=== PATIENT | female | born 1955 | race Caucasian/White ===

== ENCOUNTER 2020-05-06 14:39 | Emergency (ER) | payer BC, SELFPAY ==
--- NOTE | ~2020-05-06 | XR_ITS ---
EXAMINATION: XR ribs LT 2V w CXR 2V DATE: 05/06/2020 15:39 INDICATION: Lower posterior left rib pain post fall TECHNIQUE: PA and lateral views of the chest and 3 views of the left ribs were obtained. COMPARISON: Chest radiograph dated 06/14/2019 FINDINGS: No rib fractures identified. No pneumothorax. No focal infiltrates, pleural effusion or pulmonary preet ma. Calcified right hilar lymph nodes as well as multiple small splenic calcifications consistent wit h old granulomatous disease. Cardiomediastinal silhouette is normal. Peripheral IV at the left antecu bital fossa. Mild thoracic spondylosis. IMPRESSION: 1. No rib fracture or acute cardiopulmonary disease. Reviewed, dictated and finalized at location A.
--- NOTE | ~2020-05-06 | XR_ITS ---
EXAMINATION: XR hip LT 2V w AP pelvis DATE: 05/06/2020 15:38 INDICATION: Left hip pain post fall TECHNIQUE: Anteroposterior view of the pelvis and anteroposterior and frog-leg lateral views of the l eft hip were obtained. COMPARISON: None. FINDINGS: Alignment is normal. No fracture. Mild osteoarthritis at the bilateral hip and sacroiliac joints. Mod erate lumbar spondylosis. Soft tissues are unremarkable. IMPRESSION: 1. No acute osseous abnormality. Reviewed, dictated and finalized at location A.
[2020-05-06 14:43] VITALS: BP 166/79; PULSE 67; RESP 14; TEMP 37.1; O2SAT 99
[2020-05-06] MEDS: MORPHINE SULFATE 4 MG/ML INJ IV PUSH (14:56)
--- NOTE | 2020-05-06 17:26 | ED.FALL ---
HPI - Fall General Chief Complaint: Fall Stated Complaint: fall/left hip pain Time Seen by Provider: 05/06/20 14:40 History of Present Illness HPI Narrative: Patient is a 64-year-old female who presents ER with left side pain. Patient tripped over some flowerpots landed on a larger one. She not strike her head or lose consciousness. She has pain with twisting and walking. Concerned she may have injured her hip. No numbness or tingling in her lower extremities. No midline back pain. Related Data Home Medications Medication Instructions Recorded Confirmed diclofenac sodium 75 mg 75 mg PO BID 10/19/19 11/18/19 tablet,delayed release levothyroxine 125 mcg tablet 125 mcg PO DAILY 10/19/19 11/18/19 omeprazole 40 mg capsule,delayed 40 mg PO DAILY 10/19/19 11/18/19 release pravastatin 40 mg tablet 40 mg .ROUTE DAILY tablet 10/19/19 11/18/19 icosapent ethyl 1 gram capsule 2 gm PO BID cap 10/25/19 11/18/19 Allergies Allergy/AdvReac Type Severity Reaction Status Date / Time aloe Allergy Severe Dyspnea / Verified 11/25/19 08:59 SOB Review of Systems Review of Systems: All systems reviewed & are unremarkable except as noted in HPI and below Musculoskeletal: Musculoskeletal: Denies back pain, Reports myalgias and Denies arthralgias Neurologic: Denies syncope, Denies focal weakness and Denies numbness PMFSH Past Medical History Medical History (Updated 05/06/20 @ 17:38 by Chance Quintanilla MD) Arthritis GERD (gastroesophageal reflux disease) Hyperlipidemia with target LDL less than 130 Hypothyroidism, unspecified Jaw fracture 1979 Meningioma ALEAH (obstructive sleep apnea) Surgical History Surgical History Hx of tonsillectomy 1973 Social History Social History Smoking status: Never smoker Alcohol intake: current Gender identity (if verbalized by the patient): Female Exam Narrative: Exam Narrative: GENERAL: Uncomfortable-appearing, well-nourished, and in no acute distress. HEAD: Normocephalic, atraumatic. CHEST: Clear to auscultation. No respiratory distress. Her palpation left posterior chest wall over the ribs inferior to the scapula. No evidence of trauma. HEART: Regular rate and rhythm. Normal peripheral pulses. ABDOMEN: Soft, nontender, nondistended, normal active bowel sounds. Back: No midline tenderness of the thoracic or lumbar spine. No paraspinal muscular tenderness. EXTREMITIES: Normal range of motion without pain of the hips bilaterally. Normal function of the upper extremities. Ambulates with a guarded gait. SKIN: Warm, dry, no rash. NEURO: Alert and oriented x3. Course Course Emergency Course: Patient informed of results. Ambulatory in the ER. Discharged with supportive therapy. Vital Signs Vital signs: Vital Signs Temperature 98.7 F 05/06/20 14:43 Pulse Rate 67 05/06/20 14:43 Respiratory Rate 14 05/06/20 14:43 Blood Pressure 166/79 H 05/06/20 14:43 Pulse Oximetry 99 05/06/20 14:43 Temperature 98.7 F 05/06/20 14:43 Pulse Rate 67 05/06/20 14:43 Respiratory Rate 14 05/06/20 14:43 Blood Pressure 166/79 H 05/06/20 14:43 Pulse Oximetry 99 05/06/20 14:43 MDM - Fall Imaging Data Radiologist's impression: ITS Impressions Ribs w/Chest X-Ray 05/06/20 15:41 IMPRESSION: 1. No rib fracture or acute cardiopulmonary disease. Hip/Pelvis X-Ray 05/06/20 15:53 IMPRESSION: 1. No acute osseous abnormality. Discharge Plan Discharge Clinical Impression: Acute chest wall pain, Back pain Patient Disposition: Home, Self-Care Condition: Stable Instructions: Chest Pain (ED), Back Pain (ED) Additional Instructions: Return to the ER if you suffer recurrent injury, you have chest pain or shortness of breath, you cannot keep down food or water, you have additional concerns. Prescriptions: New
[2020-05-06 17:53] VITALS: BP 155/70; PULSE 70; RESP 16; O2SAT 99
== END 2020-05-06 17:54 | disposition home or self-care (01) ==
PROVIDERS: Emergency Provider Emergency Medicine; PCP Internal Medicine
DX: R07.89 Other chest pain (principal); M54.9 Dorsalgia, unspecified; E78.5 Hyperlipidemia, unspecified; K21.9 Gastro-esophageal reflux disease without esophagitis; E03.9 Hypothyroidism, unspecified; G47.33 Obstructive sleep apnea (adult) (pediatric); W18.09XA Striking against other object with subsequent fall, initial encounter; M19.90 Unspecified osteoarthritis, unspecified site
CPT/HCPCS: 71046; 71100; 73502; 96374; 99284; J2270

== ENCOUNTER → 2020-10-31 10:13 | Outpatient (CLI) | payer BC, SELFPAY ==
--- NOTE | ~2020-10-31 | MR_ITS ---
EXAMINATION: MR brain/brain stem wo/w con DATE: 10/31/2020 11:22 INDICATION: Meningioma. TECHNIQUE: Magnetic resonance imaging (MRI) of the brain and brainstem was performed without and with 18 mL MultiHance intravenous contrast. Sequences included sagittal and axial T1-weighted FSE, axial diffusion-weighted FS EPI, axial T2*-weighted GRE, axial T2-weighted FLAIR Propeller, and axial T2-we ighted Propeller. Postcontrast sequences included axial, sagittal, and coronal T1-weighted FSE. Appar ent diffusion coefficient (ADC) maps were created. COMPARISON: Brain MRI 08/22/2014 FINDINGS: There is a 1.8 x 1.1 x 1.8 cm enhancing extra-axial mass with dural tails anterior to left frontal lobe, consistent with a meningioma. There is no acute ischemic infarct or intracranial hemorr shauna. The ventricles are normal in size. There is mild mucosal thickening in the ethmoid sinuses. The orbits are normal. The mastoid air cells are normal. IMPRESSION: 1. 1.8 cm extra-axial mass anterior to left frontal lobe, stable from 08/22/2014, consistent with a me ningioma. Reviewed, dictated and finalized at location A. 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 1.8 cm extra-axial mass anterior to left frontal lobe, stable from 08/22/2014 , consistent with a meningioma.
[2020-10-31 11:24] LABS: Estimated Glomerular Filt Rate > 60
== END ==
PROVIDERS: PCP Internal Medicine
DX: D32.9 Benign neoplasm of meninges, unspecified (principal)
CPT/HCPCS: 70553; A9577

== ENCOUNTER → 2021-01-03 10:26 | Outpatient (CLI) | payer BC, SELFPAY ==
--- NOTE | ~2021-01-03 | MM_ITS ---
EXAMINATION: MM screening janie BI w nav HISTORY: Screening TECHNIQUE: Craniocaudal and mediolateral oblique 3-D tomosynthesis images were obtained and synthetic 2-D images were generated. CAD analysis was submitted and interpreted. COMPARISON: Comparison to multiple prior studies sequentially, with oldest reviewed study dated 01/29. BREAST PARENCHYMAL COMPOSITION: The breasts are heterogenously dense, which may obscure small masses. FINDINGS: There is no evidence of suspicious mass, calcification, or architectural distortion to sugg est malignancy in either breast. There has been no suspicious interval change. IMPRESSION: 1. No mammographic evidence of malignancy. 2. Recommend routine screening mammography in one year. BI-RADS Category 1: Negative Reviewed, dictated and finalized at location A. 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
== END ==
PROVIDERS: PCP Internal Medicine; Visit Provider Clinical Nurse Specialist
DX: Z12.31 Encounter for screening mammogram for malignant neoplasm of breast (principal)
CPT/HCPCS: 77063; 77067

== ENCOUNTER 2021-06-04 10:45 | Outpatient (CLI) | payer BC, SELFPAY ==
--- NOTE | ~2021-06-04 | US_ITS ---
EXAMINATION: US thyroid EXAM DATE: 06/04/2021 12:18 INDICATION: R22.1 - Localized swelling, mass and lump, neck. TECHNIQUE: Multiple grayscale and Doppler images of the thyroid were obtained (by a technologist who performed the scan) and subsequently reviewed. Individual nodules and recommendations may be reporte d in accordance with TI-RADS system as designated by the 2017 ACR White Paper TI-RADS committee. Comp arison is made to prior examination from 06/29/2019. FINDINGS: The right thyroid lobe measures 4.6 x 1.8 x 1.6 cm, the left measuring 4.2 x 1.4 x 1.2 cm. Diffusely heterogeneous thyroid echogenicity with hypervascular parenchyma. No superimposed focal nodules are i dentified. There is no significant interval change. IMPRESSION: Heterogeneous hypervascular thyroid parenchyma. Could be Bora's thyroiditis. Reviewed, dictated and finalized at location A. IMPRESSION: Heterogeneous hypervascular thyroid parenchyma. Could be Bora' s thyroiditis.
== END 2021-06-04 10:46 | disposition home or self-care (01) ==
PROVIDERS: PCP Internal Medicine; Visit Provider Clinical Nurse Specialist
DX: R22.1 Localized swelling, mass and lump, neck (principal)
CPT/HCPCS: 76536

== ENCOUNTER 2021-10-16 09:32 | Outpatient (CLI) | payer BC, SELFPAY ==
--- NOTE | ~2021-10-16 | US_ITS ---
EXAMINATION: US pelvic complete w TV DATE: 10/16/2021 10:15 INDICATION: Left lower quadrant pain. Postmenopausal. No hormone replacement therapy. Comparison:No prior studies for comparison. TECHNIQUE: Multiple transabdominal and endovaginal sonographic images of the pelvis performed. FINDINGS: The uterus measures 7.2 x 2.4 x 3.9 cm. The endometrial complex measures 4 mm. The ovaries are not visualized, likely atrophic. There is no free fluid in the pelvis. There are no abnormal masses seen on either side. IMPRESSION: 1. Borderline thickness of the endometrium measuring 4 mm. Reviewed, dictated and finalized at location B. MAKER
== END 2021-10-16 09:33 | disposition home or self-care (01) ==
PROVIDERS: PCP Internal Medicine; Visit Provider Physician Assistant
DX: R10.32 Left lower quadrant pain (principal)
CPT/HCPCS: 76830; 76856

== ENCOUNTER → 2022-02-27 09:41 | Outpatient (CLI) | payer BC, SELFPAY ==
--- NOTE | ~2022-02-27 | XR_ITS ---
EXAMINATION: XR foot RT min 3V DATE: 02/27/2022 10:09 INDICATION: Right foot pain TECHNIQUE: Dorsoplantar, lateral, and 2 oblique views of the right foot were obtained. COMPARISON: None. FINDINGS: There is moderate osteoarthritis at the first metatarsophalangeal joint. Mild osteoarthriti s is noted in multiple interphalangeal joints. No fracture is identified. The soft tissues are unrema rkable. Posterior and plantar calcaneal enthesophytes are noted. There is mild osteoarthritis of the midfoot. IMPRESSION: 1. No acute osseous abnormality. Reviewed, dictated and finalized at location A.
== END ==
PROVIDERS: PCP Internal Medicine; Visit Provider Family Medicine
DX: M19.071 Primary osteoarthritis, right ankle and foot (principal)
CPT/HCPCS: 73630

== ENCOUNTER → 2022-04-10 10:10 | Outpatient (CLI) | payer BC, SELFPAY ==
--- NOTE | ~2022-04-10 | XR_ITS ---
XR ankle LT min 3V, XR tibia fibula LT 2V 04/10/2022 10:55 Indication: Left leg and ankle pain Procedure: 4 views left ankle and 2 views left tibia/fibula Comparison: No prior studies for comparison. Findings: There are small degenerative calcaneal enthesophytes. Normal mineralization. Loose bodies a djacent to the medial and lateral malleoli, likely related to remote trauma. Mild osteoarthritis of t he knee. No acute fracture or traumatic malalignment. Impression: 1: No acute bone or joint abnormality. Reviewed, dictated and finalized at location A. Impression: 1: No acute bone or joint abnormality. Impression: 1: No acute bone or joint abnormality.
== END ==
PROVIDERS: PCP Internal Medicine; Visit Provider Family Medicine
DX: S89.92XA Unspecified injury of left lower leg, initial encounter (principal); X58.XXXA Exposure to other specified factors, initial encounter
CPT/HCPCS: 73590; 73610

== ENCOUNTER → 2022-04-17 10:48 | Outpatient (CLI) | payer BC, SELFPAY ==
--- NOTE | ~2022-04-17 | XR_ITS ---
EXAMINATION: XR lumbar spine min 4V DATE: 04/17/2022 11:16 INDICATION: Low back pain TECHNIQUE: Anteroposterior, lateral, and bilateral oblique views of the lumbar spine, and cone-down l ateral view of the lumbosacral junction were obtained. COMPARISON: 06/20/2015 FINDINGS: Bone alignment is normal. There is no fracture. The vertebral body heights are maintained. There is moderate loss of intervertebral disc space height at L3-4 and L4-5 with interval worsening. Small degenerative osteophytes project from the anterior endplates of multiple vertebral bodies. Ther e is mild facet osteoarthritis of the lower lumbar spine. IMPRESSION: 1. Moderate lumbar spondylosis with interval worsening. Reviewed, dictated and finalized at location F.
== END ==
PROVIDERS: PCP Internal Medicine; Visit Provider Family Medicine
DX: M47.896 Other spondylosis, lumbar region (principal)
CPT/HCPCS: 72110

== ENCOUNTER → 2022-07-23 10:16 | Outpatient (CLI) | payer BC, SELFPAY ==
--- NOTE | ~2022-07-23 | MM_ITS ---
EXAMINATION: MM screening janie BI w nav HISTORY: Screening mammogram TECHNIQUE: Craniocaudal and mediolateral oblique 3-D tomosynthesis images were obtained and synthetic 2-D images were generated. CAD analysis was submitted and interpreted. COMPARISON: 01/03/2021 bilateral screening mammogram 03/21/2016 diagnostic right mammogram and complete right breast ultrasound examination 02/22/2014 bilateral diagnostic mammography 02/03/2013 outside bilateral screening mammogram BREAST PARENCHYMAL COMPOSITION: There are scattered areas of fibroglandular density. FINDINGS: Scattered benign calcifications. Stable mild fibroglandular asymmetry. There is no evidence of suspicious mass, calcification, or architectural distortion to suggest malignancy in either breas t. There has been no suspicious interval change. IMPRESSION: 1. No mammographic evidence of malignancy. 2. Recommend routine screening mammography in one year. BI-RADS Category 2: Benign finding(s). Reviewed, dictated and finalized at location A.
--- NOTE | ~2022-07-23 | DEXA_ITS ---
Bone Density Report Name: BRIANNA BARRETT Age: 66 Sex: Female Ethnicity: White Date of : 1955 Indication: postmenopausal; screening for osteoporosis; prior fracture; Referring Provider: KI PIMENTEL Study: Bone densitometry was performed. Exam Date: July 23, 2022 Accession number: [id number] Bone Density: Region BMD T-score Z-score Classification AP Spine (L1, L2, L3) 1.153 1.2 2.9 Normal Femoral Neck (Left) 0.891 0.4 1.9 Normal Total Hip (Left) 1.012 0.6 1.8 Normal Femoral Neck (Right) 0.931 0.7 2.2 Normal Total Hip (Right) 1.045 0.8 2.1 Normal Total Hip Mean 1.029 0.7 2.0 Normal World Health Organization criteria for BMD impression classify patients as: Normal (T-score at or above -1.0), Osteopenia (T-score between -1.0 and -2.5), or Osteoporosis (T-score at or below -2.5). 10-year Fracture Risk: FRAX not reported because: All T-scores for Spine Total, Hip Total, Femoral Neck at or above -1.0 Clinical Information Provided by Patient: Has had a low trauma fracture Patient maximum height was 65.5 Menopause Age: 55 No regular weight bearing exercise Does not regularly consume dairy products Drinks caffeinated beverages Onset of menses at age 16 Number of children 2 Impression: The patient has normal bone mass. The patient has risk factors, including: previous fracture. Discussion: BONE DENSITY IS ABOVE THE MINIMUM DESIRABLE LEVEL AT ALL SKELETAL SITES TESTED. This patient?s bone mineral density is above the minimum desirable level (T-score -1.0 or better) at all sites measured. The patient should follow a healthful lifestyle (good nutrition with adequate calcium and vitamin D, and appropriate weight-bearing exercise). Follow-Up: Consider repeating this study in 5 years or sooner if there is some new clinical indication. Reported by: ANABEL on 07/23/2022 10:51:00 AM. Reviewed, dictated and finalized at location AYunior STONE
== END ==
PROVIDERS: PCP Internal Medicine; Visit Provider Family Medicine
DX: Z12.31 Encounter for screening mammogram for malignant neoplasm of breast (principal); Z13.820 Encounter for screening for osteoporosis; Z78.0 Asymptomatic menopausal state
CPT/HCPCS: 77063; 77067; 77080

== ENCOUNTER 2023-11-05 08:37 | Outpatient (CLI) | payer MEDICARE, SELFPAY ==
[2023-11-05 10:05] LABS: Alanine Aminotransferase 50 U/L (6-35); Albumin Level 4.3 g/dL (3.5-5.1); Alkaline Phosphatase 68 U/L (38-126); Anion Gap 6 mmol/L (8-16); Aspartate Amino Transferase 41 U/L (14-36); Basophils Absolute Auto 0.1 K/mm3 (0.0-0.1); Basophils Percent Auto 1.5 % (0.2-1.2); Bilirubin,Total 0.7 mg/dL (0.2-1.3); Blood Urea Nitrogen 13 mg/dL (7-17); Calcium 9.5 mg/dL (8.4-10.2); Carbon Dioxide 26 mmol/L (22-30); Chloride 107 mmol/L (98-107); Cholesterol 140 mg/dL (0-200); Eosinophils Absolute Auto 0.2 K/mm3 (0-0.3); Estimated Glomerular Filt Rate > 60; Glucose 121 mg/dL (65-110); HDL Direct 39 mg/dL; Hematocrit 40.3 % (37.0-47.0); Hemoglobin 13.5 g/dL (12.0-15.0); Immature Granulocyte Absolute 0.02 K/mm3 (0.00-0.031); Immature Granulocyte Percent A 0.4 % (0-0.5); Lymphocytes Absolute Auto 1.41 K/mm3 (0.9-3.2); Lymphocytes Percent Auto 30.4 % (18.3-44.2); Mean Corpuscular HGB Conc 33.5 g/dl (32-36); Mean Corpuscular Hemoglobin 31.2 pg (26-34); Mean Corpuscular Volume 93.1 fl (80-100); Mean Platelet Volume 10.3 fl (7.4-10.4); Monocytes Absolute Auto 0.7 K/mm3 (0.1-0.6); Neutrophils Absolute Auto 2.3 K/mm3 (1.3-6.7); Neutrophils Percent Auto 48.7 % (45.5-73.1); Platelet Count Result 217 k/mm3 (150-375); Potassium 4.1 mmol/L (3.4-5.0); Red Blood Count 4.33 M/mm3 (4.2-5.4); Red Cell Distribution Width 12.8 % (11.5-14.5); Sodium 139 mmol/L (137-145); Triglycerides 160 mg/dL (<150); White Blood Count 4.6 K/mm3 (4.5-10.0)
[2023-11-05 10:17] LABS: LDL Cholesterol Direct 70 mg/dL
[2023-11-05 10:19] LABS: Hemoglobin A1C 6.8 % (<5.7)
[2023-11-05 10:40] LABS: Free T4 Free Thyroxine 1.66 ng/mL (0.78-2.19); Vitamin D 25 Hydroxy 30.8 ng/mL
== END 2023-11-05 08:38 | disposition home or self-care (01) ==
PROVIDERS: PCP Internal Medicine; Referring Provider Internal Medicine Cardiovascular Disease; Visit Provider Family Medicine
DX: E03.9 Hypothyroidism, unspecified (principal); E55.9 Vitamin D deficiency, unspecified; E78.5 Hyperlipidemia, unspecified; I10 Essential (primary) hypertension; R73.9 Hyperglycemia, unspecified; G47.33 Obstructive sleep apnea (adult) (pediatric); Z09 Encounter for follow-up examination after completed treatment for conditions other than malignant neoplasm; E66.3 Overweight
CPT/HCPCS: 36415; 80053; 80061; 82306; 83036; 84439; 84443; 85025

== ENCOUNTER → 2023-12-10 13:23 | Outpatient (CLI) | payer MEDICARE, SELFPAY ==
--- NOTE | ~2023-12-10 | MM_ITS ---
EXAMINATION: MM screening janie BI w nav HISTORY: Screening mammogram, family history of breast cancer in her sister. TECHNIQUE: Craniocaudal and mediolateral oblique 3-D tomosynthesis images were obtained and synthetic 2-D images were generated. CAD analysis was submitted and interpreted. COMPARISON: 07/23/2022, 01/03/2021, 03/21/2016, 02/22/2014 BREAST PARENCHYMAL COMPOSITION: The breasts are heterogeneously dense, which may obscure small masses . FINDINGS: No suspicious mass, calcification, or architectural distortion are identified in either janiya ast to suggest malignancy. There has been no suspicious interval change. IMPRESSION: 1. No mammographic evidence of malignancy. 2. Recommend routine screening mammography in one year. BI-RADS Category 1: Negative Reviewed, dictated and finalized at location A. 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
== END ==
PROVIDERS: PCP Obstetrics & Gynecology; Visit Provider Family Medicine
DX: Z12.31 Encounter for screening mammogram for malignant neoplasm of breast (principal)
CPT/HCPCS: 77063; 77067

== ENCOUNTER 2023-12-24 09:52 | Outpatient (CLI) | payer MEDICARE, SELFPAY ==
[2023-12-24 18:05] LABS: Alanine Aminotransferase 54 U/L (6-35); Albumin Level 4.3 g/dL (3.5-5.1); Alkaline Phosphatase 68 U/L (38-126); Anion Gap 7 mmol/L (8-16); Aspartate Amino Transferase 52 U/L (14-36); Bilirubin,Total 0.7 mg/dL (0.2-1.3); Blood Urea Nitrogen 16 mg/dL (7-17); Carbon Dioxide 29 mmol/L (22-30); Chloride 104 mmol/L (98-107); Estimated Glomerular Filt Rate > 60; Glucose 92 mg/dL (65-110); Potassium 4.3 mmol/L (3.4-5.0); Sodium 140 mmol/L (137-145)
[2023-12-24 19:32] LABS: Hemoglobin A1C 5.7 % (<5.7)
== END 2023-12-24 09:53 | disposition home or self-care (01) ==
LOC: ANHGOSHLAB 09:54
PROVIDERS: PCP Obstetrics & Gynecology; Visit Provider Family Medicine
DX: R73.9 Hyperglycemia, unspecified (principal); R74.8 Abnormal levels of other serum enzymes
CPT/HCPCS: 36415; 80053; 83036

== ENCOUNTER → 2024-01-06 07:49 | Outpatient (CLI) | payer MEDICARE, SELFPAY ==
--- NOTE | ~2024-01-06 | US_ITS ---
Abdominal Sonogram: Real-time sonographic imaging of the abdomen was performed. Clinical History: Abnormal liver enzymes Findings: The liver appears echogenic, with no evidence of mass lesion or bile duct dilatation. Main portal vein demonstrates normal direction of flow. The spleen is normal in size, with calcified gran ulomas. The gallbladder is well distended, and demonstrates a 6 mm gallbladder wall polyp. The commo n bile duct measures 5 mm. The visualized pancreas, aorta, and IVC are unremarkable. The right kidn ey measures 8.4 cm in length and the left kidney measures 11.0 cm. There is no hydronephrosis or di al calculus. Impression: Diffuse fatty infiltration of the liver. Gallbladder wall polyp, as above. Reviewed, dictated and finalized at location . LER Impression: Diffuse fatty infiltration of the liver. Gallbladder wall polyp, as above.
== END ==
PROVIDERS: PCP Family Medicine; Visit Provider Family Medicine
DX: R74.8 Abnormal levels of other serum enzymes (principal); K76.0 Fatty (change of) liver, not elsewhere classified; K82.4 Cholesterolosis of gallbladder
CPT/HCPCS: 76700

== ENCOUNTER 2024-01-06 08:27 | Outpatient (CLI) | payer MEDICARE, SELFPAY ==
[2024-01-06 16:03] LABS: Hepatitis B Surface Antigen Negative (Negative)
[2024-01-06 16:09] LABS: HAV RESULT Negative (Negative); Hepatitis B Core IgM Result Negative (Negative)
[2024-01-06 16:21] LABS: Hepatitis C Virus Antibody Negative (Negative)
[2024-01-09 19:28] LABS: ANA Cascade Screen Negative (Negative)
== END 2024-01-06 08:28 | disposition home or self-care (01) ==
PROVIDERS: PCP Family Medicine; Visit Provider Family Medicine
DX: R10.9 Unspecified abdominal pain (principal); R74.8 Abnormal levels of other serum enzymes
CPT/HCPCS: 36415; 80074; 86038; 86225; 86235; 86364

== ENCOUNTER 2024-08-19 08:56 | Outpatient (CLI) | payer MEDICARE, SELFPAY ==
[2024-08-19 18:54] LABS: Hematocrit 42.5 % (37.0-47.0); Mean Corpuscular HGB Conc 32.9 g/dl (32-36); Mean Corpuscular Hemoglobin 31.8 pg (26-34); Mean Corpuscular Volume 96.6 fl (80-100); Mean Platelet Volume 9.7 fl (7.4-10.4); Platelet Count Result 227 k/mm3 (150-375); Red Cell Distribution Width 12.2 % (11.5-14.5); White Blood Count 5.7 K/mm3 (4.5-10.0)
[2024-08-19 19:09] LABS: Alanine Aminotransferase 18 U/L (6-35); Albumin Level 4.4 g/dL (3.5-5.1); Alkaline Phosphatase 67 U/L (38-126); Anion Gap 8 mmol/L (4-12); Aspartate Amino Transferase 30 U/L (14-36); Bilirubin,Total 0.7 mg/dL (0.2-1.3); Blood Urea Nitrogen 12 mg/dL (7-17); Calcium 9.8 mg/dL (8.4-10.2); Carbon Dioxide 31 mmol/L (22-30); Chloride 103 mmol/L (98-107); Cholesterol 125 mg/dL (0-200); Estimated Glomerular Filt Rate > 60; Glucose 91 mg/dL (65-110); HDL Direct 44 mg/dL; Potassium 4.3 mmol/L (3.4-5.0); Sodium 142 mmol/L (137-145); Triglycerides 130 mg/dL (<150)
[2024-08-19 19:20] LABS: LDL Cholesterol Direct 42 mg/dL
[2024-08-19 19:38] LABS: Thyroid Stimulating Hormone 0.167 uIU/mL (0.465-4.680)
[2024-08-19 21:04] LABS: Free T4 Free Thyroxine 1.78 ng/mL (0.78-2.19); Vitamin D 25 Hydroxy 34.6 ng/mL
[2024-08-19 21:19] LABS: Hemoglobin A1C 5.4 % (<5.7)
== END 2024-08-19 08:57 | disposition home or self-care (01) ==
LOC: ANHGOSHLAB 08:57
PROVIDERS: PCP Family Medicine; Visit Provider Family Medicine
DX: G47.33 Obstructive sleep apnea (adult) (pediatric) (principal); E03.9 Hypothyroidism, unspecified; E55.9 Vitamin D deficiency, unspecified; E66.3 Overweight; E78.5 Hyperlipidemia, unspecified; I10 Essential (primary) hypertension; R53.83 Other fatigue; R73.9 Hyperglycemia, unspecified; R74.8 Abnormal levels of other serum enzymes; Z09 Encounter for follow-up examination after completed treatment for conditions other than malignant neoplasm
CPT/HCPCS: 36415; 80053; 80061; 82306; 83036; 84439; 84443; 85025

== ENCOUNTER 2024-11-30 08:46 | Outpatient (CLI) | payer MEDICARE, SELFPAY ==
--- NOTE | 2024-12-20 15:16 | WPDHOMESLEEP ---
Sleep Study - Home Unattended Date of Study: 11/30/24 Ordering Provider: Marquita Dutta DO Interpreting Provider: Marquita Dutta DO Home Sleep Study Type: Watch PAT Height: 1.66 m Weight: 69.853 kg Body Mass Index: 25.2 Neck Circumference (inches): 14 Gunpowder: 3 Reason for Sleep Study Re-evaluate for sleep apnea after significant weight loss Sleep History The patient is a 69-year-old female that had a sleep study to re-evaluate the presence of sleep apnea after losing 60 lb. The patient denies awakening from sleep short of breath. She denies awakening at night with heartburn, belching or cough. She occasionally snores but is rarely loud enough that others complain. She occasionally has trouble sleeping when she has a cold. She denies waking up gasping for air throughout the night. She denies having breathing problems at night observed by herself or others. He rarely sweats excessively at night. She denies having heart palpitations or irregular heartbeats during the night. He rarely falls asleep during the day but never while driving. She denies sleep paralysis, cataplexy and hypnagogic/ hypnopompic hallucinations. She denies feeling afraid of going to sleep. She denies having nightmares. She rarely remembers her dreams. She denies having thoughts racing through her mind. She denies feeling sad, depressed or anxious. She denies having muscular tension. She rarely notices parts of her body jerk. She denies kicking during the night. She denies having crawling and aching feelings in her legs and denies having leg pain during the night. She denies grinding her teeth during sleep. She rarely awakens with morning jaw pain. She denies being bothered by pain during the day and denies being awakened by pain during the night. She rarely wakes up feeling stiff in the morning. She rarely wakes up with sore or achy muscles. She occasionally wakes up with pain in the neck, spine and other joints. The patient goes to bed at 11:00 p.m. on weekdays and at 10:00 p.m. on the weekends. It takes her 5-10 minutes to fall asleep. She wakes up once throughout the night to urinate is able to fall back asleep within 5 minutes. She wakes up at 6:30 a.m. on both weekdays and weekends. She typically gets 5-6 hours of sleep per night. She will stay in bed for 10 minutes after waking up in the morning. She currently lives alone during the week but stays with her boyfriend on the weekends. He will consume caffeinated beverages within 2 hours before bedtime. She denies engaging in physical exercise before bedtime. She will read before falling asleep. She denies watching television before falling asleep. She denies taking naps in afternoon or the evening. She consumes caffeinated tea or soda during the day. She will occasionally consume an alcoholic beverage. She denies tobacco and recreational drug use. [facility] Past Medical History Medical History Vitamin D deficiency Arthritis ALEAH (obstructive sleep apnea) Meningioma Hypothyroidism, unspecified GERD (gastroesophageal reflux disease) Hyperlipidemia with target LDL less than 130 Jaw fracture 1979 Surgical History Surgical History History of tubal ligation Hx of tonsillectomy 1973 Family History Family History Mother Family history of cardiovascular disease, Onset Age: 61 Father Family history of cardiovascular disease, Onset Age: 63 Carcinoma of colon Sibling Parkinsons disease Alzheimer disease Other Arthritis Atrial fibrillation Congestive heart failure Depression Diabetes mellitus Glaucoma Heart disease Social History Social History Smoking status: Never smoker Alcohol intake: current Alcohol use details: couple of drinks/month Do You Feel Safe in your Home?: Yes Lack of Transportation: No Lack of Food: Never True Current Housing: I Have Housing Concerned About Future Housing: No Difficulty Paying Gas/Electric Bills: No Difficulty Paying for Meds: No Currently Unemployed: No Education: Master's Degree or Higher Difficulty w/ Childcare or Family Care: No Gender identity (if verbalized by the patient): Female Medications Home Medications ?Medication ?Instructions ?Recorded ?Confirmed ?Type aspirin 81 mg tablet,delayed 81 mg PO DAILY 03/19/23 08/18/24 History release (Adult Low Dose Aspirin) icosapent ethyl 1 gram capsule 2 g PO BID 03/19/23 08/18/24 History (Vascepa) CPAP Equipment #1 ea 08/18/23 08/18/24 Rx levothyroxine 125 mcg tablet 125 mcg PO DAILY #100 tabs 10/21/23 08/18/24 Rx tirzepatide 2.5 mg/0.5 mL 2.5 mg subcut WEEKLY 12/24/23 08/18/24 History subcutaneous pen injector (Mounkenyonro) omeprazole 40 mg capsule,delayed See Rx Instructions .Route 08/19/24 Rx release .COMPLEX #100 caps eszopiclone 2 mg tablet (Lunesta) 2 mg PO QHS #1 tablet 08/25/24 Rx atorvastatin 80 mg tablet 80 mg PO QHS #100 tabs 10/15/24 Rx Sleep Procedure The sleep study was completed using [employer]T a technically adequate device with seven channels: peripheral arterial tone, actigraphy, body position, snore, respiratory movement, pulse oximetry, sleep staging, and heart rate. Prior to using the device, the patient received verbal and written instructions for its application and was provided with the help desk phone number for additional telephonic instruction with 24-hour availability of qualified personnel to answer questions. The study was scored using CMS guidelines. Sleep Architecture The total recording time is 6 hrs, 18 min. The total sleep time is 5 hrs, 31 min. Sleep latency is 5 minutes. REM latency is 56 minutes. The patient had 5 episodes of waking. Sleep architecture shows 25.2% deep sleep, 44.0% light sleep, and (as % Total Sleep Time) showed NREM (Light 44.0%; Deep 25.2%), and a 30.8% stage REM. The patient spent 74.0% of total sleep time in the supine position. Sleep efficiency was 87.57. Respiratory Analysis The overall AHI (pAHI 3%:) is 16.8. The central AHI is 5.5. The AHI was 14.0 in NREM and 23.0 in REM sleep. The AHI was 22.6 in Supine and 0.7 in Non-supine sleep. Percent of Juan Brewer respirations is 0.0. Oximetry Data The oxygen desaturation index (DOROTA 4%:) is 8.9. The mean saturation is 93%, and the lowest saturation is 80%. Time spent with saturation < 88% is 4.7 minutes. Snoring Profile Snoring average intensity is 40 dB. The patient snored above 45 decibels for 7.9 minutes, 2.4% of sleep time. Cardiac Profile The average pulse rate is 73 beats per minutes. The lowest pulse rate is 59 bpm. The highest pulse rate reported is 100 bpm. Atrial fibrillation was not detected. Premature beats occur <0.1 per minute. Assessment and Plan Assessment and Plan (1) ALEAH (obstructive sleep apnea): Code(s): G47.33 - Obstructive sleep apnea (adult) (pediatric) Status: Acute Assessment and Plan: The patient had an overall AHI of 16.8 with desaturation down to 80%. The patient had a central apnea index of 5.5. This is consistent with moderate sleep apnea. I recommend that the patient have a CPAP Titration if she is unable to tolerate her current CPAP pressure settings due to her weight loss. *The patient needs to have an echocardiogram done to rule out cardiogenic causes for an elevated central apnea index.* Data The data obtained during this sleep study is adequate for interpretation. Certification This sleep study has been reviewed by a board certified sleep medicine physician.
[2024-12-21 10:59] VITALS: BMI 25.2
== END 2024-12-01 12:59 | disposition home or self-care (01) ==
LOC: ANHCSM 09:01
PROVIDERS: PCP Family Medicine; Visit Provider Family Medicine
DX: G47.33 Obstructive sleep apnea (adult) (pediatric) (principal)
CPT/HCPCS: 95800

== ENCOUNTER 2024-12-13 12:32 | Outpatient (CLI) | payer MEDICARE, SELFPAY ==
--- NOTE | ~2024-12-13 | MM_ITS ---
EXAMINATION: MM screening janie BI w nav HISTORY: Screening TECHNIQUE: Craniocaudal and mediolateral oblique 3-D tomosynthesis images were obtained and synthetic 2-D images were generated. CAD analysis was submitted and interpreted. COMPARISON: Comparison to multiple prior studies sequentially, with oldest reviewed study dated 01/03. BREAST PARENCHYMAL COMPOSITION: Dense: The breasts are heterogeneously dense, which may obscure small masses FINDINGS: There is no evidence of suspicious mass, calcification, or architectural distortion to sugg est malignancy in either breast. There has been no suspicious interval change. IMPRESSION: 1. No mammographic evidence of malignancy. 2. Recommend routine screening mammography in one year. BI-RADS Category 1: Negative Reviewed, dictated and finalized at location A. CTOR [place]
== END 2024-12-13 12:33 | disposition home or self-care (01) ==
LOC: MICIMG 12:33
PROVIDERS: PCP Family Medicine; Visit Provider Family Medicine
DX: Z12.31 Encounter for screening mammogram for malignant neoplasm of breast (principal)
CPT/HCPCS: 77063; 77067

== ENCOUNTER 2024-12-30 13:58 | Outpatient (CLI) | payer MEDICARE, SELFPAY ==
--- OUTSIDE RECORDS SUMMARY | 2024-12-30 14:08 | XMS_ITS | Patient Health Record ---
Author Organization [facility] Address [address] [place] [address] Care Team Providers Care Shredder Tender Name Role Phone Jose Carlos Ha Primary Care Provider Unavailab le ZZ-Migration, Provider Unavailable Unavailab le Allergies Allergen (clinical drug ingredient) Drug/Non Drug Allergy documented on EMR Reaction Allergy Type Onset Date Status Aloe Dry skin/upper respiratory infection Drug Allergy Active Reason For Referral No Information Medications Medication SIG (Take, Route, Frequency, Duration) Notes Start Date End Date Status DICLOFENAC sodium 75 mg 1 tab(s) orally 2 times a day for 30 day(s) Active PRAVASTATIN 40 mg 1 tab(s) orally once a day for 30 day(s) Active LEVOTHYROXINE 125 mcg (0.125 mg) 1 tab(s) orally once a day for 30 day(s) Active Vitamin D3 1.25 MG (75960 UT) TK 1 C PO ONCE A WEEK FOR 8 WEEKS for 56 Active VASCEPA 1 g 2 cap(s) orally 2 ti mes a day for 30 day(s) Active VITAMIN D3 50,000 intl units TK 1 C PO O NCE A WEEK FOR 8 WEEKS for 56 Active VENTOLIN HFA 90 mcg/inh INHALE 1-2 PUFFS PO Q 4-6 H PRN for 16 Active OMEPRAZOLE 40 mg 1 cap(s) orally once a day for 30 day(s) Active Ventolin HFA 108 (90 Base) MCG/ACT INHALE 1-2 PUFFS PO Q 4-6 H PRN for 16 Active Omeprazole 40 MG 1 cap(s) orally once a day for 30 day(s) Active Levothyroxine Sodium 125 MCG 1 tab(s) or ally once a day for 30 day(s) Active Vascepa 1 GM 2 cap(s) orally 2 ti mes a day for 30 day(s) Active Diclofenac Sodium 75 MG 1 tab(s) orally 2 times a day for 30 day(s) Active Pravastatin Sodium 40 MG 1 tab(s) orally once a day for 30 day(s) Active Social History Tobacco Use: Social History Observation Description Date Details (start date - stop date) Never Smoker NA - NA Smoking Smart Form: Question Answer Notes Are you a: never smoker Problems Problem Type SNOMED Code ICD Code Onset Dates Problem Status W/U Status Risk Notes Problem Wheezing (54300286) Wheezing (R06.2) Active confirmed Problem Eruption of skin (476358944) Rash and other nonspecific skin eruption (R21) Active confirmed Problem Chronic allergic conjunctivitis (95774128) Other chronic allergic conjunctivitis (H10.45) Active confirmed Problem Allergic rhinitis (35718286) Other allergic rhinitis (J30.89) Active confirmed Problem Allergic contact dermatitis caused by chemical (2368865305334538 3) Allergic contact dermatitis due to other chemical products (L23.5) Active confirmed Encounters Encounter Location Date Provider Diagnosis [address] [address] 05/01/2024 Provider ZZ-Migration Plan Of Treatment No Information Insurance Providers Payer Name Payer Address Payer Phone Subscriber Number Group Number Insured Name Patient Relationship to Insured Coverage Start Date Coverage End Date [facility] [address] [place] [address] [id number] Elizabeth Sierra Self - patient is the insured Medical (General) History Medical History History ICD Code Vitamin D deficiency, unspecified E55.9 Hyperlipidemia, unspecified E78.5 Gastro-esophageal reflux disease without esophagitis K21.9 Hypothyroidism, unspecified E03.9 Surgical History Surgery Date(Month/Year) Tonsillectomy 11/17/1972 Broken jaw 04/17/1982 Carpal tunnel-right 08/2018 Carpal tunnel-left 11/2018
--- OUTSIDE RECORDS SUMMARY | 2024-12-30 14:08 | XMS_ITS | Continuity of Care Document ---
Author Organization [facility] Address [address] [place] [address] [address] [place] [address] Phone Care Team Providers Care Manager Ecommerce Name Role Phone Hossein Borges Unavailable Unavailable Procedures Procedure Date Office/outpatient Visit, New Advance Directives Directive Yes / No Effective Date File Name No Information Encounters Encounter Description Practice Location Reason(s) For Visit Diagnoses Date Provider Providers Copied on Encounter Office/outpat ient Visit, [facility], [address] [place] [address] [address], [place], [place], [id number], [place] tel:[phone] SEC [facility] No Information [address] Katerina Catalan. [address] [facility] , [address], [place], [address], [place]. tel:[phone] Family History Family Member Type Diagnosis Age At Onset No Information Payers Payer name Insurance type Covered libertarian ID Authoriza tion(s) [employer] SOI CI [id number] Social History Type Description Quantity Date Captured Comments Sex Female Smoking Status No Information Chief Complaint And Reason For Visit No Information Reason For Referral Reason For Referral No Information History Of Present Illness Encounter Date Complaint History Of Prese nt Illness No Information Functional Status Date Functional Assessmen t No Information Instructions Date Instruction Additional Infor mation No Information Assessments Type Assessment Date No Information Patient Care Teams Name Effective Dates (start - stop) Status Members No Information
--- OUTSIDE RECORDS SUMMARY | 2024-12-30 14:08 | XMS_ITS | Clinical Summary ---
Author Organization [facility] Address [address] [place] [address] Care Team Providers Care Signal Worker Name Role Phone DuttaMarquita DO Primary Care Provider [phone] Source Comments [facility],non-owned Affiliates and Associated Physician Practices is amultiple site organization consisting of ambulatory clinics and hospital sitesin [place], [place], [place] and [place]. This disclosure is being madepursuant to the Care Everywhere program and may not contain all information available regarding this patient. Last updated 18.[facility] Allergies Active Allergy Reactions Criticality Noted Date Comments Aloe Shortness of Breath High 12/06/2024 Lidocaine 08/28/2016 Melaleuca 08/28/2016 Thimerosal Eye Itching 08/25/2020 Medications * Be aware that medications may not be up to date on this document. Alwaysverify current medications with the patient. Medication Sig Dispensed Refills Start Date End Date Status omeprazole (PRILOSEC) 10 MG capsule Take 4 (four) capsules by mouth daily before breakfast Active LEVOTHYROXINE SODIUM PO Take 125 mcg by mouth once daily Active diclofenac sodium EC (Voltaren) 75 MG tablet Take 1 (one) tablet by mouth once daily Active atorvastatin (Lipitor) 80 MG tablet Take 1 (one) tablet by mouth once daily Active Mounjaro 5 MG/0.5ML injection Inject 5 (five) mg subcutaneously every 7 days 05/12/2024 Active icosapent ethyl (Vascepa) 1 g capsule Take 1 (one) capsule by mouth once daily Active Cholecalciferol 1.25 MG (91489 UT) Take 50,000 Units by mouth every 7 days Active ASPIRIN 81 PO Take 81 mg by mouth once daily Active meloxicam (Mobic) 15 MG tablet Take 1 (one) tablet by mouth once daily 02/07/2024 Discontinue d(List Clean-Up) Active Problems Problem Noted Date Diagnosed Date 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/2024 Menopausal symptom 12/06/2024 Elevated liver enzymes 05/17/2024 Overview (12/06/2024): 05/17/24 Fibroscan CAP 256, LSM 5.9 (but technically suboptimal) 12/06/24 Fibroscan CAP 228, LSM 5.4 kPa Diabetes mellitus, type 2 12/02/2023 Finding of above normal blood pressure 2 Atherosclerosis of coronary artery 12/12/2020 Mixed hyperlipidemia 11/28/2020 Iron deficiency 10/01/2018 Shortness of breath 01/13/2017 Sleep apnea, unspecified 01/07/2017 Family history of heart disease 09/11/2015 Fatigue 09/11/2015 Near syncope 09/11/2015 Encounters Date Type Department Care Team Description 12/06/2024 10:00 AM WOOD ROOM SUPERVISOR Office Visit [facility] [address] [place] [address] Cris Robins, PHARMACY INFORMATICIST-NAPHTHA WASHING SYSTEM OPERATOR Elevated liver enzymes (Primary Dx) 12/06/2024 9:00 AM WOOD ROOM SUPERVISOR Procedure visit [facility] - [address] [place] [address] Gadiel Rose MD Elevated liver enzymes 12/06/2024 Travel from Last 3 Months Immunizations Name Administration Dates Next Due INFLUENZA VACCINE, QUADR. (F LUZONE; FLULAVAL; FLUARIX; AFLURIA QUADRIVALENT; 6MO+), 0.5 ML (IIV4) 08/25/2020 Family History Medical History Relation Name Comments CAD (Coronary Artery Disease) Father Cancer - Colon Father CAD (Coronary Artery Disease) Mother Alzheimer's Disease Sister Parkinson's Disease Sister Relation Name Status Comments Father Mother Sister Social History Tobacco Use Types Packs/Day Years Used Date Smoking Tobacco: Never Smokeless Tobacco: Never Alcohol Use Standard Drinks/Week Comments Yes 0 (1 standard drink = 0.6 oz pur e alcohol) occasionally Sex and Gender Information Value Date Recorded Sex Assigned at Not on file Gender Identity Not on file Sexual Orientation Not on file Last Filed Vital Signs Vital Sign Reading Time Taken Comments Blood Pressure 111/71 12/06/2024 9:26 AM WOOD ROOM SUPERVISOR Pulse 70 12/06/2024 9:26 AM WOOD ROOM SUPERVISOR Temperature 36.8 C (98.3 F) 12/06/2024 9:26 AM WOOD ROOM SUPERVISOR Respiratory Rate 16 09/01/2018 2:49 PM CDT Oxygen Saturation 100% 12/06/2024 9:26 AM WOOD ROOM SUPERVISOR Inhaled Oxygen Concentration - - Weight 71.4 kg (157 lb 6.4 oz) 12/06/2024 9:26 A M WOOD ROOM SUPERVISOR Height 166.4 cm (5' 5.5 ) 12/06/2024 9:26 AM WOOD ROOM SUPERVISOR Body Mass Index 25.79 12/06/2024 9:26 AM WOOD ROOM SUPERVISOR Plan of Treatment Health Maintenance Due Date Last Done Comments BONE DENSITY TESTING 1955 COLOGUARD (AGES 45-75) - COL ON CA SCREENING 1957 COLON MONITORING 1957 COLONOSCOPY - COLON CA SCREENING 1957 CT COLONOGRAPHY - COLON CA SCREENING 1957 Colorectal Cancer Screening 1957 FIT - COLON CA SCREENING 1957 FLEX SIG - COLON CA SCREENING 1957 HEPATITIS C SCREENING 10/13/1975 DTAP/TDAP/TD VACCINES (1 - Tdap) 1976 PNEUMOCOCCAL VACCINE 50+ (1 of 2 - PCV) 1976 ZOSTER VACCINE (1 of 2) 2007 MAMMOGRAM 09/21/2016 09/21/2014, 09/21/2014, 02/22/2014 Respiratory Syncytial Virus (RSV) Vaccine Pt: or over 60 yrs (1 - Risk 60-74 years 1-dose series) 2017 COVID-19 VACCINE ( - 2023-2 5 season) 2024 INFLUENZA VACCINE (#1) 2024 08/25/2020 DEPRESSION SCREENING 11/17/2024 DIABETES - URINE PROTEIN SCREENING 11/17/2024 MEDICARE AWV CALENDAR YEAR 2024 DIABETES RETINOPATHY SCREENING 12/06/2024 DIABETES-FOOT EXAM WITH MONOFILAMENT 12/06/2024 DIABETES-HGB A1C 12/06/2024 DIABETES-SERUM CREATININE 05/17/2025 05/17/2024 HEPATITIS B VACCINE Aged Out No longe r eligible based on patient's age to complete this topic HIB VACCINE Aged Out No longer eligi ble based on patient's age to complete this topic HPV VACCINE Aged Out No longer eligi ble based on patient's age to complete this topic MENINGOCOCCAL (Group B) VACCINE Aged Out No longer eligible b ased on patient's age to complete this topic MENINGOCOCCAL VACCINE Aged Out No armando jeison eligible based on patient's age to complete this topic Goals Goal Patient Goal Type Associated Problems Recent Progress Patient-Stated? Author Medication Management General On track( 025 9:38 AM WOOD ROOM SUPERVISOR) No Cammie Huerta RN Note: Expected end date: Ongoing Interventions: Take all medications as prescribed Let your doctor know right away about any changes in your medications Make sure to request a refill of your medication at least one week prior to your last dose Procedures Procedure Name Priority Date/Time Associated Diagnosis Comments MI LIVER ELASTOGRAPHY Routine 12/06/2024 9:11 AM WOOD ROOM SUPERVISOR Elevated liver enzymes COMPREHENSIVE METABOLIC PANEL Routine 05/17/2024 12:10 PM CDT Elevated liver enzymes from Last 3 Months or Most Recently Relevant to Health Maintenance Results * MI LIVER ELASTOGRAPHY (12/06/2024 9:11 AM WOOD ROOM SUPERVISOR) Narrative Gadiel Pardo MD - 12/06/2024 9:11 AM WOOD ROOM SUPERVISOR Gadiel Pardo MD 12/06/2024 9:35 AM Diagnosis: SRIDHAR RN verified patient NPO for prior 3 hours. Procedure explained. Date of Exam: 12/06/2024 Liver Stiffness: (LSM, kPa) median: 5.4 IQR/Median% (ideally < 30%): 8% CAP (controlled attenuation parameter): 228 Technical Difficulty: None Ordering Provider: Cris Robins APRN-ROSI Phone Fax Fibroscan interpretation: I have personally reviewed the Fibroscan report and associated tracings. The calculated Liver Stiffness Measurement (LSM, kPa) indicates that: The probability of advanced liver fibrosis is: low. The loss of ultrasound signal, (controlled attenuation parameter, CAP [dB/m]), indicates that the probability of hepatic steatosis is: low. Gadiel Persaud MD The following criteria are used to indicate the probability of advanced (stage 3-4) fibrosis: < 7.0 kPa: low 7.0-8.9 kPa: low to moderate 9.0-14.9 kPa: moderate 15-20 kPa: high > 20 kPa: very high Liver stiffness > 12 kPa is associated with an increased risk of cirrhosis-related complications over the next 3-5 years (Sameera, 2022). Liver stiffness > 20 kPa is also associated with a high probability of complications of portal hypertension including varices and ascites. Liver stiffness > 50 kPa is associated with a high risk of variceal bleeding. These interpretations are based on the following published data: Sameera J, Laura m H, Selene M, Romeo C, Bonalev M, Cure S, Ampgentryo J, Nasr P, Tallab L, Canivet CM, Kechagias S, S nchez Y, Dincuff E, Anand A, Noah M, Riou J, Tryshree A and Burgos-Beasley M. Non-invasive tests accurately stratify patients with NAFLD based on their risk of liver-related events. J Hepatol (2021) 76: 8831-9345. Marley PJ, Jonas M, Lennie M, et al. Accuracy of FibroScan controlled attenuation parameter and liver stiffness measurement in assessing steatosis and fibrosis in patients with nonalcoholic fatty liver disease. Gastroenterology 2019;156:5003-1346. Dwaine MS, Alena R, Van Natta ML, et al. Vibration-controlled transient elastography to assess fibrosis and steatosis in patients with nonalcoholic fatty liver disease. Clin Gastroenterol Hepatol 2019;17:156-163. Note that scores have been developed that incorporate the Fibroscan liver stiffness measurement from large cohorts of patients with liver biopsies to further refine the ability of Fibroscan to identify patients with MASH and advanced fibrosis. These include the FAST (Fibroscan-AST) score (Woreta, 2022) and the Agile3+ and Agile4 scores (Mildred, 202; Tisha, 202). Rosaura TA, Van Rosemarie ML, Weinstein M, Martinez A, et al. Validation of the accuracy of the FAST score for detecting patients with at-risk nonalcoholic steatohepatitis (WHITAKER) in a [place] cohort and comparison to other non-invasive algorithms. PLoS ONE (2021) 17: s6961763. Mildred AJ, Jerrell J, Julio César ZM, et al. Enhanced diagnosis of advanced fibrosis and cirrhosis in individuals with NAFLD using FibroScan-based Agile scores. J Hepatol (2022) 78: 247-259. Tisha et al. Vibration-controlled transient elastography scores to predict liver-related events in steatotic liver disease. KRYSTAL (2023) 331: 8194-4399 Fibroscan LSM can also be used with laboratory parameters without formulas to assess prognosis. According to the Baveno-VII criteria (Doyle, 2021), Fibroscan LSM <=15 kPa plus a platelet count of >=854o077/L rules out clinically significant portal hypertension (sensitivity and negative predictive value >90%) in patients with compensated advanced chronic liver disease. de Sourav R, Magdiel J, Cash-Tobin G, Relatasha T, Lionel C on behalf of the Baveno VII Faculty. Baveno VII--Renewing consensus in portal hypertension. J Hepatol (2021) 76: 959-974 Assessing the likelihood of advanced fibrosis in patients with intermediate liver stiffness measurement (LSM) by Fibroscan (e.g., 8-15 kPa) can be improved by also calculating the FIB-4 score (Caroleuke et al. Hepatology Communications 2019;3:9405-9953) or NAFLD Fibrosis score (Gipson et al. Clinical Gastroenterology and Hepatology 2019;17:3623-7265 using routine clinical data. Notes: 1. Fibroscan cannot reliably identify earlier stages of fibrosis (ie distinguish F0 from F1 and F2) and thus a histologic stage cannot be predicted from the Fibroscan reading. 2. Liver stiffness can be increased by factors other than fibrosis including passive congestion, infiltrative processes, active alcoholism, recent moderate alcohol consumption in the 2 weeks before the exam, biliary obstruction and marked inflammation. The interpretation of the Fibroscan result provided above may not have taken such clinical factors into account. 3. Identifying steatosis by an elevated CAP score (> 250 db/m) is useful for establishing a diagnosis of steatotic liver disease. However the severity of steatosis does not correlate with liver related outcomes. Disease etiology also influences Fibroscan cutoff values for fibrosis stages and the following cutoffs have been proposed (Lety et al, Clin Gastro Hepatol 2015; 13:27-36): Cutoffs for Stage 3 and Stage 4 fibrosis respectively: Hepatitis B: >9 and >11.7 kPa Hepatitis C: >9.5 and >12.5 kPa HCV-HIV: >11 and >14 kPa Cholestatic liver diseases: >10 and >17.9 kPa MASLD/MASH: >10 and >14 kPa CAP estimates of steatosis: normal <200 dB/m mild 200 to 250 dB/m moderate 250-290 dB/m substantial > 290 dB/m (Note that Fibroscan is not a quantitative measure of liver fat.) These criteria are estimates and may change as additional supporting data becomes available. (This additional interpretive data was last updated 11/19/24.) [email or web address] Cris Robins PHARMACY INFORMATICIST-NAPHTHA WASHING SYSTEM OPERATOR PROCEDURE/FL NOR SURGICAL ORDERABLES * (ABNORMAL) COMPREHENSIVE METABOLIC PANEL (05/17/2024 12:10 PM CDT) BUN 10 7 - 26 mg/dL 05/17/2024 1:14 PM [facility] Creatinine 0.69 0.56 - 0.96 mg/dL 05/17/2024 1:14 PM [facility] Sodium 144 136 - 145 mmol/L 05/17/2024 1:14 PM [facility] Potassium 4.1 3.5 - 4.5 mmol/L 05/17/2024 1:14 PM [facility] Chloride 108(H) 98 - 107 mmol/L 05/17/2024 1:14 PM [facility] CO2 27 22 - 29 mmol/L 05/17/2024 1:14 PM [facility] Glucose 89 70 - 115 mg/dL 05/17/2024 1:14 PM [facility] Calcium 10.5(H) 8.4 - 10.2 mg/dL 05/17/2024 1:14 PM [facility] Protein Total 7.7 6.0 - 8.3 g/dL 05/17/2024 1:14 PM [facility] Albumin 4.4 3.4 - 5.0 g/dL 05/17/2024 1:14 PM [facility] Bilirubin Total 0.7 0.2 - 1.2 mg/dL 05/17/2024 1:14 PM [facility] Alkaline Phosphatase 72 40 - 150 U/L 05/17/2024 1:14 PM [facility] ALT 19 5 - 55 U/L 05/17/2024 1:14 PM [facility] AST 20 5 - 34 U/L 05/17/2024 1:14 PM [facility] Anion Gap 9 6 - 16 05/17/2024 1:14 PM [facility] BUN/Creatinine Ratio 14 7 - 23 05/17/2024 1:14 PM [facility] Osmolality Calculated 297(H) 275 - 295 mOsm/kg 05/17/2024 1:14 PM [facility] Albumin/Globulin Ratio 1.3 1.1 - 2.3 05/17/2024 1:14 PM [facility] eGFR by CKD-EPI >90 >=90 mL/min/1.7 3 m2 05/17/2024 1:14 PM [facility] Blood BLOOD SPECIMEN / Unknown Lab Venipuncture / Unknown 05/17/2024 12:10 PM CDT 05/17/2024 12:45 PM T Cris Robins PHARMACY INFORMATICIST-NAPHTHA WASHING SYSTEM OPERATOR LAB - CHEMIS TRY ORDERABLES [facility] [address] [place] [address], [facility] [phone] from Last 3 Months or Most Recently Relevant to Health Maintenance Care Teams Signal Worker Relationship Specialty Start Date End Date Marquita Dutta DO [address] [place] [address] PCP - General Family Medicine 05/17/24
--- OUTSIDE RECORDS SUMMARY | 2024-12-30 14:08 | XMS_ITS | Referral Summary ---
Author Organization [facility] Address [address] [place] [address] Care Team Providers Care General Labor Forklift Operator Name Role Phone Marquita Dutta Primary Care Provider [phone] Source Comments [facility],non-owned Affiliates and Associated Physician Practices is amultiple site organization consisting of ambulatory clinics and hospital sitesin [place], [place], [place] and [place]. This disclosure is being madepursuant to the Care Everywhere program and may not contain all information available regarding this patient. 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 Procedure visit [facility] [address] [place] [id number] Gdaiel Rose MD Elevated liver enzymes 12/06/2024 10:00 AM SCHOOL BUS DRIVER/MECHANIC Office Visit [facility] [address] [place] [id number] Cris Robins, SHEET METAL WELDER-SIDE LASTER TACK Elevated liver enzymes (Primary Dx) from Last 3 Months Allergies Active Allergy Reactions Criticality Noted Date [...] mouth once daily Active Cholecalciferol 1.25 MG (53460 UT) Take 50,000 Units by mouth every 7 days Active ASPIRIN 81 PO Take 81 mg by mouth once daily Active meloxicam (Mobic) 15 MG tablet Take 1 (one) tablet by mouth once daily 02/07/2024 5 Discontinue d(List Clean-Up) Active Problems Problem Noted [...] disease 09/11/2015 Fatigue 09/11/2015 Near syncope 09/11/2015 Immunizations Name Administration Dates Next Due INFLUENZA VACCINE, QUADR. (F LUZONE; FLULAVAL; FLUARIX; AFLURIA QUADRIVALENT; 6MO+), 0.5 ML (IIV4) 08/25/2020 Social History Tobacco Use Types Packs/Day Years [...] Comments Blood Pressure 111/71 12/06/2024 9:26 AM SCHOOL BUS DRIVER/MECHANIC Pulse 70 12/06/2024 9:26 AM SCHOOL BUS DRIVER/MECHANIC Temperature 36.8 C (98.3 F) 12/06/2024 9:26 AM SCHOOL BUS DRIVER/MECHANIC Respiratory Rate 16 09/01/2018 2:49 PM CDT Oxygen Saturation 100% 12/06/2024 9:26 AM SCHOOL BUS DRIVER/MECHANIC Inhaled Oxygen Concentration - - Weight 71.4 kg (157 lb 6.4 oz) 12/06/2024 9:26 A M SCHOOL BUS DRIVER/MECHANIC Height 166.4 cm (5' 5.5 ) 12/06/2024 9:26 AM SCHOOL BUS DRIVER/MECHANIC Body Mass Index 25.79 12/06/2024 9:26 AM SCHOOL BUS DRIVER/MECHANIC Plan of Treatment Not on file Goals Goal Patient Goal Type Associated Problems Recent Progress Patient-Stated? Author Medication Management General On track( 025 9:38 AM SCHOOL BUS DRIVER/MECHANIC) Cammie Rodriguez RN Note: Expected end date: Ongoing Interventions: Take all medications as prescribed Let your doctor know right away about any changes in your medications Make sure to request a refill of your medication at least one week prior to your last dose Procedures Procedure Name Priority Date/Time Associated Diagnosis Comments MI LIVER ELASTOGRAPHY Routine 12/06/2024 9:11 AM SCHOOL BUS DRIVER/MECHANIC Elevated liver enzymes COMPREHENSIVE METABOLIC PANEL Routine 05/17/2024 12:10 PM CDT Elevated liver enzymes from Last 3 Months or Most Recently Relevant to Health Maintenance Results * MI LIVER ELASTOGRAPHY (12/06/2024 9:11 AM SCHOOL BUS DRIVER/MECHANIC) Narrative Gadiel Pardo MD - 12/06/2024 9:11 AM SCHOOL BUS DRIVER/MECHANIC Gadiel Pardo MD 12/06/2024 9:35 AM Diagnosis: SRIDHAR RN verified patient NPO for prior 3 hours. Procedure explained. Date of Exam: 12/06/2024 Liver Stiffness: (LSM, kPa) median: 5.4 IQR/Median% (ideally < 30%): 8% CAP (controlled attenuation parameter): 228 Technical Difficulty: None Ordering Provider: SANDRA Serna Phone Fax Fibroscan interpretation: I have personally [...] cirrhosis-related complications over the next 3-5 years (Delorisier, 2022). Liver stiffness > 20 kPa is also associated with a high probability of complications of portal hypertension including varices and ascites. Liver stiffness > 50 kPa is associated with a high risk of variceal bleeding. These interpretations are based on the following published data: Sameera J, Hagstr m H, Ekstedt M, Romeo C, Bonacci M, Cure S, Ampuero J, Nasr P, Tallab L, Canivet CM, Kechagias S, S nczaire Y, Dincuwale E, Anand A, Noah M, Leon J, Kayla A and Burgos-Beasley M. Non-invasive tests accurately stratify patients with NAFLD based on their risk of liver-related events. J Hepatol (2021) 76: 2904-4282. Marley PJ, Jonas M, Lennie M, et al. Accuracy of FibroScan controlled attenuation parameter and liver stiffness measurement in assessing steatosis and fibrosis in patients with nonalcoholic fatty liver disease. Gastroenterology 2019;156:7420-7606. Dwaine MS, Alena R, Van Rosemarie ML, et al. Vibration-controlled transient elastography to [...] fibrosis. These include the FAST (Fibroscan-AST) score (Rosaura, 2021) and the Agile3+ and Agile4 scores (Mildred, 2022; Tisha, 2023). Rosaura TA, Pool [place] ML, Corinna M, Martinze A, et al. Validation of the accuracy of the FAST score for detecting patients with at-risk nonalcoholic steatohepatitis (WHITAKER) in a [place] cohort and comparison to other non-invasive algorithms. PLoS ONE (2021) 17: [id number]. Mildred AJ, Jerrell J, Julio César ZM, et al. Enhanced diagnosis of advanced fibrosis and cirrhosis in individuals with NAFLD using FibroScan-based Agile scores. J Hepatol (2022) 78: 247-259. Tisha et al. Vibration-controlled transient elastography scores to predict liver-related events in steatotic liver disease. KRYSTAL (2023) 331: 2374-4226 Fibroscan LSM can also be used with laboratory parameters without formulas to assess prognosis. According to the Baveno-VII criteria (Doyle, 202), Fibroscan LSM <=15 kPa plus a platelet count of >=583s205/L rules out clinically significant portal hypertension (sensitivity and negative predictive value >90%) in patients with compensated advanced chronic liver disease. Doyle R, Magdiel J, Cash-Tobin G, Andrea T, Lionel Purvis on behalf of the Baveno VII Faculty. Baveno VII--Renewing consensus in portal hypertension. J Hepatol (2021) 76: 959-974 Assessing the likelihood of advanced fibrosis in patients with intermediate liver stiffness measurement (LSM) by Fibroscan (e.g., 8-15 kPa) can be improved by also calculating the FIB-4 score (Mick et al. Hepatology Communications 2019;3:2308-9045) or NAFLD Fibrosis score (Gipson et al. Clinical Gastroenterology and Hepatology 2019;17:7046-6377 using routine clinical data. Notes: 1. Fibroscan [...] additional interpretive data was last updated 11/19/24.) [email or web address] Cris Robins SHEET METAL WELDER-SIDE LASTER TACK PROCEDURE/OR NOR SURGICAL ORDERABLES * (ABNORMAL) COMPREHENSIVE METABOLIC PANEL (05/17/2024 12:10 PM CDT) BUN 10 7 - 26 mg/dL 05/17/2024 1:14 PM [facility] Creatinine 0.69 0.56 - 0.96 mg/dL 05/17/2024 1:14 PM [facility] Sodium 144 136 - 145 mmol/L 05/17/2024 1:14 PM [facility] Potassium 4.1 3.5 - 4.5 mmol/L 05/17/2024 1:14 PM [facility] Chloride 108(H) 98 - 107 mmol/L 05/17/2024 1:14 PM [facility] CO2 27 22 - 29 mmol/L 05/17/2024 1:14 PM [facility] Glucose 89 70 - 115 mg/dL 05/17/2024 1:14 PM [facility] Calcium 10.5(H) 8.4 - 10.2 mg/dL 05/17/2024 1:14 PM [facility] Protein Total 7.7 6.0 - 8.3 g/dL 05/17/2024 1:14 PM [facility] Albumin 4.4 3.4 - 5.0 g/dL 05/17/2024 1:14 PM [facility] Bilirubin Total 0.7 0.2 - 1.2 mg/dL 05/17/2024 1:14 PM [facility] Alkaline Phosphatase 72 40 - 150 U/L 05/17/2024 1:14 PM [facility] ALT 19 5 - 55 U/L 05/17/2024 1:14 PM [facility] AST 20 5 - 34 U/L 05/17/2024 1:14 PM [facility] Anion Gap 9 6 - 16 05/17/2024 1:14 PM [facility] BUN/Creatinine Ratio 14 7 - 23 05/17/2024 1:14 PM [facility] Osmolality Calculated 297(H) 275 - 295 mOsm/kg 05/17/2024 1:14 PM [facility] Albumin/Globulin Ratio 1.3 1.1 - 2.3 05/17/2024 1:14 PM [facility] eGFR by CKD-EPI >90 >=90 mL/min/1.7 3 m2 05/17/2024 1:14 PM [facility] Blood BLOOD SPECIMEN / Unknown Lab Venipuncture / Unknown 05/17/2024 12:10 PM CDT 05/17/2024 12:45 PM [facility] [address] Robins SHEET METAL WELDER-SIDE LASTER TACK LAB - CHEMIS TRY ORDERABLES [facility] [address] [place] [address], [facility] [phone] from Last 3 Months or Most Recently Relevant to Health Maintenance Care Teams General Labor Forklift Operator Relationship Specialty Start Date End Date Marquita Dutta DO [address] [place] [address] PCP - General Family Medicine 05/17/24
--- OUTSIDE RECORDS SUMMARY | 2024-12-30 14:08 | XMS_ITS | Patient Health Summary ---
Author Organization [facility] Address [address] [place] [address] Care Team Providers Care Chip Frier Name Role Phone Marquita Dutta DO Primary Care Provider [phone] Note from [facility],non-owned Affiliates and Associated Physician Practices is amultiple site organization consisting of ambulatory clinics and hospital sitesin [place], [place], [place] and [place]. This disclosure is being madepursuant to the Care Everywhere program and may not contain all information available regarding this patient. Last updated 18.[facility] [place] Allergies * Aloe(Shortness of Breath) -High Criticality * Lidocaine * Melaleuca * Thimerosal(Eye Itching) Medications * Be aware that medications may not be up to date on this document. Alwaysverify current medications with the patient. * omeprazole (PRILOSEC) 10 MG capsule Take 4 (four) capsules by mouth daily before breakfast * LEVOTHYROXINE SODIUM PO Take 125 mcg by mouth once daily * diclofenac sodium EC (Voltaren) 75 MG tablet Take 1 (one) tablet by mouth once daily * atorvastatin (Lipitor) 80 MG tablet Take 1 (one) tablet by mouth once daily * Mounjaro 5 MG/0.5ML injection(Started 05/12/2024) Inject 5 (five) mg subcutaneously every 7 days * icosapent ethyl (Vascepa) 1 g capsule Take 1 (one) capsule by mouth once daily * Cholecalciferol 1.25 MG (09280 UT) Take 50,000 Units by mouth every 7 days * ASPIRIN 81 PO Take 81 mg by mouth once daily Ended Medications* meloxicam (Mobic) 15 MG tablet(Started 02/07/2024) (Discontinued) Take 1 (one) tablet by mouth once daily Active Problems Problem Noted Date Diagnosed Date 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/2024 Menopausal symptom 12/06/2024 Elevated liver enzymes 05/17/2024 Diabetes mellitus, type 2 12/02/2023 Finding of above normal blood pressure 2 Atherosclerosis of coronary artery 12/12/2020 Mixed hyperlipidemia 11/28/2020 Iron deficiency 10/01/2018 Shortness of breath 01/13/2017 Sleep apnea, unspecified 01/07/2017 Family history of heart disease 09/11/2015 Fatigue 09/11/2015 Near syncope 09/11/2015 Immunizations * INFLUENZA VACCINE, QUADR. (FLUZONE; FLULAVAL; FLUARIX; AFLURIA QUADRIVALENT; 6MO+), 0.5 ML (IIV4)(Given 08/25/2020) Social History Tobacco Use Types Packs/Day Years [...] Comments Blood Pressure 111/71 12/06/2024 9:26 AM IT PORTFOLIO MANAGER Pulse 70 12/06/2024 9:26 AM IT PORTFOLIO MANAGER Temperature 36.8 C (98.3 F) 12/06/2024 9:26 AM IT PORTFOLIO MANAGER Respiratory Rate 16 09/01/2018 2:49 PM CDT Oxygen Saturation 100% 12/06/2024 9:26 AM IT PORTFOLIO MANAGER Inhaled Oxygen Concentration - - Weight 71.4 kg (157 lb 6.4 oz) 12/06/2024 9:26 A M IT PORTFOLIO MANAGER Height 166.4 cm (5' 5.5 ) 12/06/2024 9:26 AM IT PORTFOLIO MANAGER Body Mass Index 25.79 12/06/2024 9:26 AM IT PORTFOLIO MANAGER Procedures * WV LIVER ELASTOGRAPHY(Performed 12/06/2024) Performed for Elevated liver enzymes * SMOOTH MUSCLE ANTIBODY W REFLEX TITER(Performed 05/17/2024) Performed for Elevated liver enzymes * CERULOPLASMIN(Performed 05/17/2024) Performed for Elevated liver enzymes * MOSIE-4-QJCZBKMNEST BLOOD PHENOTYPING PANEL(Performed 05/17/2024) Performed for Elevated liver enzymes * MITOCHONDRIAL ANTIBODY SCREEN(Performed 05/17/2024) Performed for Elevated liver enzymes * COMPREHENSIVE METABOLIC PANEL(Performed 05/17/2024) Performed for Elevated liver enzymes * CBC W AUTO DIFFERENTIAL(Performed 05/17/2024) Performed for Elevated liver enzymes * WV LIVER ELASTOGRAPHY(Performed 05/17/2024) Performed for Elevated liver enzymes * PULSE OXIMETRY - POINT OF CARE (AMB)(Performed 09/01/2018) Performed for Nasopharyngitis acute * STREP A SCREEN - POINT OF CARE (AMB) STL(Performed 10/02/2016) Performed for Cough * URINALYSIS AUTO - POINT OF CARE (AMB) STL(Performed 08/28/2016) Performed for Urinary frequency * INFLUENZA A+B - POINT OF CARE (AMB)(Performed 08/28/2016) Performed for Viral enteritis * STREP A SCREEN - POINT OF CARE (AMB) STL(Performed 08/28/2016) Performed for Acute pharyngitis, unspecified etiology Results * WV LIVER ELASTOGRAPHY (12/06/2024 9:11 AM IT PORTFOLIO MANAGER) Narrative Gadiel Pardo MD - 12/06/2024 9:11 AM IT PORTFOLIO MANAGER Gadiel Pardo MD 12/06/2024 9:35 AM Diagnosis: [...] published data: Sameera J, Hagstr m H, Ekstcurtt M, Romeo C, Bonacelestinei M, Cure S, Ampgentryo J, Nasr P, Tallab L, Canwaldemart CM, Keliu S, S nczaire Y, Jerrod E, Anand A, Noah M, Leon J, Kayla A and Burgos-Ramos M. Non-invasive tests accurately stratify patients with NAFLD based on their risk of liver-related events. J Hepatol (2021) 76: 0530-5954. Marley PJ, Jonas M, Lennie M, et al. Accuracy of FibroScan controlled attenuation parameter and liver stiffness measurement in assessing steatosis and fibrosis in patients with nonalcoholic fatty liver disease. Gastroenterology 2019;156:3663-2180. Dwaine ARMANDO, Alena R, Pool IGLESIAS, et al. Vibration-controlled transient elastography to assess [...] These include the FAST (Fibroscan-AST) score (Rosaura, 2022) and the Agile3+ and Agile4 scores (Mildred, 2023; Tisha, 2024). Rosaura ARELLANO, Pool IGLESIAS, Corinna Jones, Martinez Hooks, et al. Validation of the accuracy of the FAST score for detecting patients with at-risk nonalcoholic steatohepatitis (WHITAKER) in a [place] cohort and comparison to other non-invasive algorithms. PLoS ONE (2022) 17: [id number]. Mildred AJ, Jerrell J, Julio César ZM, et al. Enhanced diagnosis of advanced fibrosis and cirrhosis in individuals with NAFLD using FibroScan-based Agile scores. J Hepatol (2022) 78: 247-259. Tisha et al. Vibration-controlled transient elastography scores to predict liver-related events in steatotic liver disease. KRYSTAL (2023) 331: 9142-9034 Fibroscan LSM can also be used with laboratory parameters without formulas to assess prognosis. According to the Baveno-VII criteria (Doyle, 202), Fibroscan LSM <=15 kPa plus a platelet count of >=653c967/L rules out clinically significant portal hypertension (sensitivity [...] FIB-4 score (Caroleuke et al. Hepatology Communications 2019;3:8433-0798) or NAFLD Fibrosis score (Gipson et al. Clinical Gastroenterology and Hepatology 2019;17:7661-7364 using routine clinical data. Notes: 1. Fibroscan [...] additional interpretive data was last updated 11/19/24.) [email or web address] Cris Robins ACETYLENE GAS COMPRESSOR-ESTATE PLANNING COUNSELOR PROCEDURE/[place] NOR SURGICAL ORDERABLES * SMOOTH MUSCLE ANTIBODY W REFLEX TITER (05/17/2024 12:10 PM CDT) F-Actin Antibody IgG 11 0 - 19 Units 05/19/2024 4:54 PM CDT [facility] ([facility]) Comment: If F-Actin (Smooth Muscle) Antibody, IgG is negative, the Smooth Muscle Antibody titer by IFA is not performed. REFERENCE INTERVAL: F-Actin (Smooth Muscle) Antibody, IgG by EUGENIE 19 Units or less ....... Negative 20 - 30 Units .......... Weak Positive-Suggest repeat testing in two to three weeks with fresh specimen. 31 Units or greater..... Positive-Suggestive of autoimmune hepatitis type 1 or chronic active hepatitis. F-actin IgG antibodies have been shown to have increased sensitivity for autoimmune hepatitis (AIH) but lower specificity than smooth muscle antibodies (SMA). F-actin IgG antibodies can also be seen in SMA-negative disease controls (non-AIH), especially in patients with primary biliary cirrhosis and chronic hepatitis C infections. Some patients with AIH may be SMA-positive but negative for F-actin IgG. Consider testing for SMA by IFA if suspicion for AIH is strong. Performed by [facility], [address] [place] [id number] [email or web address], Syed Butcher MD, Lab. Director [facility] Number: [id number] Blood BLOOD SPECIMEN / Unknown Lab Venipuncture / Unknown 05/17/2024 12:10 PM CDT 05/17/2024 12:36 PM CDT Cris Robins APRN-ESTATE PLANNING COUNSELOR LAB - SEROLO GY ORDERABLES Performing Organization Address [facility] Co de Phone Number [facility]) [address] [place] [address] * MITOCHONDRIAL ANTIBODY SCREEN (05/17/2024 12:10 PM CDT) Mitochondrial M2 Antibody 15.8 0.0 - 24.9 Units 05/19/2024 1:14 AM CDT [facility] ([facility]) Comment: REFERENCE INTERVAL: Mitochondrial (M2) Antibody, IgG 20.0 Units or less ......... Negative 20.1 - 24.9 Units........... Equivocal 25.0 Units or greater....... Positive Anti-mitochondrial antibodies (AMA) are thought to be present in 90-95% of patients with primary biliary cholangitis (PBC). However, the frequency of detected antibodies may be cohort or assay dependent, as lower sensitivities have been reported. Not all PBC patients are positive for AMA; some patients may be positive for SP100 and/or GP210 antibodies. A negative result does not rule out PBC. Performed By: [facility] [address] [place] [address] Hitcher: John Sierra MD, PhD CLIA Number: [id number] Blood BLOOD SPECIMEN / Unknown Lab Venipuncture / Unknown 05/17/2024 12:10 PM CDT 05/17/2024 12:36 PM CDT Cris FLORES LAB - CHEMIS TRY ORDERABLES Performing Organization Address City/[facility]/ZIP Co de Phone Number [facility]) [address] [place] [address] * [id number] BLOOD PHENOTYPING PANEL (05/17/2024 12:10 PM CDT) Blywj-9-Zhanwondii n Phenotype M2M2 05/20/2024 4:56 PM CDT [facility] ([facility]) Comment: The patient appears to have a normal phenotype. All M alleles (including subtypes M1, M2, and M3) produce normal serum concentrations of oxwqs-8-urtcbzcx inhibitor and are not associated with clinical disease. Caution in interpretation is advised if the patient has been transfused within the previous 21 days. Performed By: [facility] [address] [place] [address] Hitcher: John Sierra MD, PhD CLIA Number: [id number] Zdumu-3-Kqcrdvgxph n 162 90 - 200 mg/dL 05/20/2024 4:56 PM CDT [facility] ([facility]) Comment:To convert to umol/L , multiply mg/dL by 0.185 Blood BLOOD SPECIMEN / Unknown Lab Venipuncture / Unknown 05/17/2024 12:10 PM CDT 05/17/2024 12:36 PM CDT Cris Robins ACETYLENE GAS COMPRESSOR-ESTATE PLANNING COUNSELOR LAB - CHEMIS TRY ORDERABLES [facility] ([facility]) [address] [place], [place] [address] * CERULOPLASMIN (05/17/2024 12:10 PM CDT) Ceruloplasmin 30 20 - 60 mg/dL 05/17/2024 1:11 PM CDT [facility] Blood BLOOD SPECIMEN / Unknown Lab Venipuncture / Unknown 05/17/2024 12:10 PM CDT 05/17/2024 12:36 PM CDT Cris Robins ACETYLENE GAS COMPRESSOR-ESTATE PLANNING COUNSELOR LAB - CHEMIS TRY ORDERABLES [address] [address], [facility] [phone] * CBC WITH DIFFERENTIAL (05/17/2024 12:10 PM CDT) WBC 5.3 4.0 - 10.7 x10E9/L 05/17/2024 12:55 PM [facility] RBC Count 4.46 3.90 - 5.20 x10E12/L 05/17/2024 12:55 PM [facility] Hemoglobin 14.4 11.9 - 15.8 g/dL 05/17/2024 12:55 PM [facility] Hematocrit 41.8 34.8 - 46.1 % 05/17/2024 12:55 PM [facility] MCV 93.7 80.0 - 98.0 fL 05/17/2024 12:55 PM [facility] MCH 32.3 26.7 - 33.6 pg 05/17/2024 12:55 PM [facility] MCHC 34.4 31.7 - 36.3 g/dL 05/17/2024 12:55 PM [facility] RDW-CV 12.3 11.3 - 14.8 % 05/17/2024 12:55 PM [facility] Platelet Count 222 150 - 420 x10E9/L 05/17/2024 12:55 PM [facility] MPV 9.5 7.8 - 11.4 fL 05/17/2024 12:55 PM [facility] Neutrophil % 59.6 41.0 - 74.0 % 05/17/2024 12:55 PM [facility] Lymphocyte % 26.6 17.0 - 47.0 % 05/17/2024 12:55 PM [facility] Monocyte % 8.8 3.0 - 11.0 % 05/17/2024 12:55 PM [facility] Eosinophil % 3.7 0.0 - 7.0 % 05/17/2024 12:55 PM [facility] Basophil % 0.9 0.0 - 1.6 % 05/17/2024 12:55 PM [facility] Immature Granulocytes % 0.4 0.0 - 1.0 % 05/17/2024 12:55 PM [facility] Neutrophil Absolute 3.18 1.60 - 7.50 x10E9/L 05/17/2024 12:55 PM [facility] Lymphocyte Absolute 1.42 1.00 - 4.40 x10E9/L 05/17/2024 12:55 PM T [facility] Monocyte Absolute 0.47 0.15 - 1.00 x10E9/L 05/17/2024 12:55 PM [facility] Eosinophil Absolute 0.20 0.00 - 0.60 x10E9/L 05/17/2024 12:55 PM [facility] Basophil Absolute 0.05 0.00 - 0.13 x10E9/L 05/17/2024 12:55 PM [facility] Blood BLOOD SPECIMEN / Unknown Lab Venipuncture / Unknown 05/17/2024 12:10 PM CDT 05/17/2024 12:46 PM CDT Cris Robins ACETYLENE GAS COMPRESSOR-ESTATE PLANNING COUNSELOR LAB - HEMATO LOGY ORDERABLES [facility] [address] [place] [address], [facility] [phone] * (ABNORMAL) COMPREHENSIVE METABOLIC PANEL (05/17/2024 12:10 PM CDT) BUN 10 7 - 26 mg/dL 05/17/2024 1:14 PM [facility] Creatinine 0.69 0.56 - 0.96 mg/dL 05/17/2024 1:14 PM [facility] Sodium 144 136 - 145 mmol/L 05/17/2024 1:14 PM [facility] Potassium 4.1 3.5 - 4.5 mmol/L 05/17/2024 1:14 PM [facility] Chloride 108(H) 98 - 107 mmol/L 05/17/2024 1:14 PM [facility] CO2 27 22 - 29 mmol/L 05/17/2024 1:14 PM [facility] Glucose 89 70 - 115 mg/dL 05/17/2024 1:14 PM [facility] Calcium 10.5(H) 8.4 - 10.2 mg/dL 05/17/2024 1:14 PM [facility] Protein Total 7.7 6.0 - 8.3 g/dL 05/17/2024 1:14 PM [facility] Albumin 4.4 3.4 - 5.0 g/dL 05/17/2024 1:14 PM [facility] Bilirubin Total 0.7 0.2 - 1.2 mg/dL 05/17/2024 1:14 PM [facility] Alkaline Phosphatase 72 40 - 150 U/L 05/17/2024 1:14 PM [facility] ALT 19 5 - 55 U/L 05/17/2024 1:14 PM [facility] AST 20 5 - 34 U/L 05/17/2024 1:14 PM [facility] Anion Gap 9 6 - 16 05/17/2024 1:14 PM [facility] BUN/Creatinine Ratio 14 7 - 23 05/17/2024 1:14 PM [facility] Osmolality Calculated 297(H) 275 - 295 mOsm/kg 05/17/2024 1:14 PM [facility] Albumin/Globulin Ratio 1.3 1.1 - 2.3 05/17/2024 1:14 PM [facility] eGFR by CKD-EPI >90 >=90 mL/min/1.7 3 m2 05/17/2024 1:14 PM [facility] Blood BLOOD SPECIMEN / Unknown Lab Venipuncture / Unknown 05/17/2024 12:10 PM CDT 05/17/2024 12:45 PM CDT Cris Robins ACETYLENE GAS COMPRESSOR-ESTATE PLANNING COUNSELOR LAB - CHEMIS TRY ORDERABLES Performing Organization Address [facility] Co de Phone Number [address] [address], [facility] [phone] * W[place] LIVER ELASTOGRAPHY (05/17/2024 10:20 AM CDT) Narrative Gadiel Pardo MD - 05/17/2024 10:20 AM CDT Gadiel Pardo MD 05/17/2024 11:05 AM Diagnosis: SRIDHAR RN verified patient NPO for prior 3 hours. Procedure explained. Date of Exam: 05/17/2024 Liver Stiffness: (LSM, kPa) median: 5.9 IQR/Median% (ideally < 30%): 19% CAP (controlled attenuation parameter): 256 Technical Difficulty: None Ordering Provider: SANDRA Serna Phone Fax Fibroscan interpretation: I have personally reviewed the Fibroscan report and associated tracings. The calculated Liver Stiffness Measurement (LSM, kPa) indicates that: The probability of advanced liver fibrosis is: low. The loss of ultrasound signal, (controlled attenuation parameter, CAP [dB/m]), indicates that the probability of hepatic steatosis is: moderate. Gadiel Persaud MD The following criteria are used to indicate the probability of advanced (stage 3-4) fibrosis: < 7.0 kPa: low 7.0-8.9 kPa: low to moderate 9.0-14.9 kPa: moderate 15-20 kPa: high > 20 kPa: very high Liver stiffness > 20 kPa is also associated with a high probability of complications of portal hypertension including varices and ascites. Liver stiffness > 50 kPa is associated with a high risk of variceal bleeding. These interpretations are based on the following published data: Marley PJ, Jonas M, Lennie M, et al. Accuracy of FibroScan controlled attenuation parameter and liver stiffness measurement in assessing steatosis and fibrosis in patients with nonalcoholic fatty liver disease. Gastroenterology 2019;156:9777-0418. Dwaine ARMANDO, Alena R, Van Natsu ML, et al. Vibration-controlled transient elastography to [...] These include the FAST (Fibroscan-AST) score (Rosaura, 202) and the Agile3+ and Agile4 scores (Mildred, 202). Rosaura TA, Van Natta ML, Corinna M, Martinez A, et al. Validation of the accuracy of the FAST score for detecting patients with at-risk nonalcoholic steatohepatitis (WHITAKER) in a [place] cohort and comparison to other non-invasive algorithms. PLoS ONE (2021) 17: [id number]. Mildred DOWELL, Jerrell J, Julio César BERNARD, et al. Enhanced diagnosis of advanced fibrosis and cirrhosis in individuals with NAFLD using FibroScan-based Agile scores. J Hepatol (2022) 78: 247-259. Fibroscan LSM can also be used with laboratory parameters without formulas to assess prognosis. According to the Baveno-VII criteria (Doyle, 2021), Fibroscan LSM ?15 kPa plus a platelet count of ?512a539/L rules out clinically significant portal hypertension (sensitivity and negative predictive value >90%) in patients with compensated advanced chronic liver disease. Doyle R, Magdiel J, Janey G, Andrea T, Lionel Purvis on behalf of the Baveno VII Faculty. Baveno VII--Renewing consensus in portal hypertension. J Hepatol (2021) 76: 959-974 Assessing the likelihood of advanced fibrosis in patients with intermediate liver stiffness measurement (LSM) by Fibroscan (e.g., 8-15 kPa) can be improved by also calculating the FIB-4 score (Mick et al. Hepatology Communications 2019;3:2103-4113) or NAFLD Fibrosis score (Gipson et al. Clinical Gastroenterology and Hepatology 2019;17:8493-0827 using routine clinical data. Note: 1. Fibroscan cannot reliably identify earlier stages [...] have taken such clinical factors into account. Disease etiology also influences Fibroscan cutoff values [...] (This additional interpretive data was last updated 03/22/23.) [email or web address] Cris Robins ACETYLENE GAS COMPRESSOR-ESTATE PLANNING COUNSELOR PROCEDURE/[place] NOR SURGICAL ORDERABLES * PULSE OXIMETRY - POINT OF CARE (AMB) (09/01/2018) Oximetry POCT 97 0 - 100 % QC Verified Yes Yes Blood BLOOD SPECIMEN / Unknown 09/01/2018 Earline Gonzalez ACETYLENE GAS COMPRESSOR-ESTATE PLANNING COUNSELOR LAB - POINT OF CARE ORDERABLES * STREP A SCREEN - POINT OF CARE (AMB) STL (10/02/2016) Only the most recent of2 resultswithin the time period is included. Strep A Rapid POCT Negative Negative Strep A Internal Control Present Lot # [id number] Expiration Date 04/12/2018 Throat ENTIRE THROAT (SURFACE REGION OF NECK) / Unknown 10/02/2016 Kathryn Gifford ACETYLENE GAS COMPRESSOR-[facility] LAB - POINT OF C ARE ORDERABLES * (ABNORMAL) URINALYSIS AUTO - POINT OF CARE (AMB) STL (08/28/2016) Clarity UA POCT cloudy Color UA POCT yellow Leukocyte UA 125 Negative Nitrite UA POCT neg Negative Urobilinogen UA 0.2 0.1 - 1.0 Protein UA POCT 100 Negative pH UA 6.5 5.0 - 8.0 pH units Blood UA 50 Negative Specific [place] UA POCT 1.010 1.002 - 1.030 Ketone UA neg Negative Bilirubin UA POCT neg Negative Glucose UA neg Negative Expiration Date 09/16/2017 Lot # [id number] QC Verified Yes Yes URINE / Unknown 08/28/2016 Peg Crawford ACETYLENE GAS COMPRESSOR-ESTATE PLANNING COUNSELOR LAB - POINT O F CARE ORDERABLES * INFLUENZA A+B - POINT OF CARE (AMB) (08/28/2016) Influenza A Antigen Rapid Negative Negative Influenza B Antigen Rapid Negative Negative Influenza Internal Control negative NEGATIVE - POSITIVE Influenza Lot Number [id number] Influenza Expiration Date 03/08/2017 Other (qualifier value) NASOPHARYNGEAL SWAB / Unknown 08/28/2016 Peg Crawford ACETYLENE GAS COMPRESSOR-ESTATE PLANNING COUNSELOR LAB - POINT O F CARE ORDERABLES Care Teams Chip Frier Relationship Specialty Start Date End Date Marquita Dutta DO [address] [facility] [address] [place] [id number] PCP - General Family Medicine 05/17/24
[2024-12-30 19:15] LABS: Basophils Absolute Auto 0.1 K/mm3 (0.0-0.1); Basophils Percent Auto 1.2 % (0.2-1.2); Eosinophils Absolute Auto 0.2 K/mm3 (0-0.3); Eosinophils Percent Auto 2.8 % (0-4.4); Hematocrit 42.6 % (37.0-47.0); Hemoglobin 14.4 g/dL (12.0-15.0); Immature Granulocyte Absolute 0.02 K/mm3 (0.00-0.031); Immature Granulocyte Percent A 0.3 % (0-0.5); Lymphocytes Absolute Auto 1.74 K/mm3 (0.9-3.2); Lymphocytes Percent Auto 28.8 % (18.3-44.2); Mean Corpuscular HGB Conc 33.8 g/dl (32-36); Mean Corpuscular Hemoglobin 32.1 pg (26-34); Mean Corpuscular Volume 94.9 fl (80-100); Mean Platelet Volume 9.9 fl (7.4-10.4); Monocytes Absolute Auto 0.7 K/mm3 (0.1-0.6); Monocytes Percent Auto 11.1 % (2.6-8.5); Neutrophils Absolute Auto 3.4 K/mm3 (1.3-6.7); Neutrophils Percent Auto 55.8 % (45.5-73.1); Platelet Count Result 217 k/mm3 (150-375); Red Blood Count 4.49 M/mm3 (4.2-5.4); Red Cell Distribution Width 12.4 % (11.5-14.5); White Blood Count 6.1 K/mm3 (4.5-10.0)
[2024-12-30 19:44] LABS: Cholesterol 125 mg/dL (0-200); HDL Direct 50 mg/dL; Triglycerides 127 mg/dL (<150)
[2024-12-30 19:51] LABS: Alanine Aminotransferase 21 U/L (6-35); Albumin Level 4.4 g/dL (3.5-5.1); Alkaline Phosphatase 70 U/L (38-126); Anion Gap 10 mmol/L (4-12); Aspartate Amino Transferase 27 U/L (14-36); Bilirubin,Total 0.6 mg/dL (0.2-1.3); Blood Urea Nitrogen 10 mg/dL (7-17); Calcium 9.9 mg/dL (8.4-10.2); Carbon Dioxide 29 mmol/L (22-30); Chloride 103 mmol/L (98-107); Estimated Glomerular Filt Rate > 60; Glucose 85 mg/dL (65-110); Potassium 4.1 mmol/L (3.4-5.0); Sodium 142 mmol/L (137-145)
[2024-12-30 19:58] LABS: LDL Cholesterol Direct 44 mg/dL
[2024-12-30 20:15] LABS: Thyroid Stimulating Hormone 0.438 uIU/mL (0.465-4.680)
[2024-12-30 20:21] LABS: Creatinine Urine 41.8 mg/dL
[2024-12-30 20:34] LABS: MALB Creatinine Ratio < 14.4 mg/g (0-30); Microalbumin Urine Random < 6.0 mg/L (0-16.7)
[2024-12-30 20:56] LABS: Free T4 Free Thyroxine 1.64 ng/dL (0.78-2.19)
[2024-12-30 21:07] LABS: Hemoglobin A1C 5.3 % (<5.7)
[2024-12-30 21:14] LABS: Free T3 3.59 pg/mL (2.45-5.93)
== END 2024-12-30 13:59 | disposition home or self-care (01) ==
PROVIDERS: PCP Family Medicine; Visit Provider Nurse Practitioner
DX: E03.9 Hypothyroidism, unspecified (principal); E11.9 Type 2 diabetes mellitus without complications; E78.2 Mixed hyperlipidemia
CPT/HCPCS: 36415; 80053; 80061; 82043; 83036; 84439; 84443; 84481; 85025

== ENCOUNTER 2025-01-25 08:15 | Outpatient (CLI) | payer MEDICARE, SELFPAY ==
--- NOTE | ~2025-01-25 | MR_ITS ---
EXAMINATION: MR brain/brain stem wo/w con DATE: 01/25/2025 09:03 INDICATION: Benign neoplasm of meninges. TECHNIQUE: Magnetic resonance imaging (MRI) of the brain and brainstem was performed without and with 18 mL MultiHance intravenous contrast. COMPARISON: Brain MRI 10/31/2020 FINDINGS: There is a 1.7 x 1.1 x 1.9 cm enhancing extra-axial mass anterior to left frontal lobe, con sistent with a meningioma. There is no acute ischemic infarct or intracranial hemorrhage. The ventric les are normal in size. There is mild mucosal thickening in the ethmoid sinuses. The orbits are lakia l. There is a trace right mastoid effusion. IMPRESSION: 1. Stable 1.9 cm meningioma anterior to left frontal lobe. Reviewed, dictated and finalized at location B.
== END 2025-01-25 08:16 | disposition home or self-care (01) ==
LOC: MICIMG 08:15
PROVIDERS: PCP Family Medicine; Visit Provider Nurse Practitioner
DX: D32.9 Benign neoplasm of meninges, unspecified (principal); R51.9 Headache, unspecified; R93.0 Abnormal findings on diagnostic imaging of skull and head, not elsewhere classified
CPT/HCPCS: 70553; A9579

== ENCOUNTER 2025-02-07 11:53 | Outpatient (CLI) | payer MEDICARE, SELFPAY ==
--- OUTSIDE RECORDS SUMMARY | 2025-02-07 13:51 | XMS_ITS | Clinical Summary ---
Author Organization [facility] Address [address] [place] [address] Care Team Providers Care Mold Sander Name Role Phone DuttaMarquita DO Primary Care Provider [phone] [facility],non-owned Affiliates and Associated Physician Practices is amultiple site organization consisting of ambulatory clinics and hospital sitesin [place], [place], [place] and [place]. This disclosure is being madepursuant to the Care Everywhere program and may not contain all information available regarding this patient. Last updated 18.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 Menopausal symptom 12/06/2024 Elevated liver enzymes 05/17/2024 Overview (12/06/2024): 05/17/24 Fibroscan CAP 256, LSM 5.9 (but technically suboptimal) 12/06/24 Fibroscan CAP 228, LSM 5.4 kPa Diabetes mellitus, type 2 12/02/2023 Finding of above normal blood pressure Atherosclerosis of coronary artery 12/12/2020 Mixed hyperlipidemia 11/28/2020 Iron deficiency 10/01/2018 Shortness of breath 01/13/2017 Sleep apnea, unspecified 01/07/2017 Family history of heart disease 09/11/2015 Fatigue 09/11/2015 Near syncope 09/11/2015 Encounters Date Type Department Care Team Description 12/06/2024 10:00 AM ORDER TRACER Office Visit [facility] - [address], [place] [address] Cris Robins, MANUFACTURING ENGINEER ASSEMBLY-POLICYHOLDER INFORMATION CLERK Elevated liver enzymes (Primary Dx) 12/06/2024 9:00 AM ORDER TRACER Procedure visit [facility] - [address] [place] [address] Gadiel Rose MD Elevated liver enzymes 12/06/2024 [...] Comments Blood Pressure 111/71 12/06/2024 9:26 AM ORDER TRACER Pulse 70 12/06/2024 9:26 AM ORDER TRACER Temperature 36.8 C (98.3 F) 12/06/2024 9:26 AM ORDER TRACER Respiratory Rate 16 09/01/2018 2:49 PM CDT Oxygen Saturation 100% 12/06/2024 9:26 AM ORDER TRACER Inhaled Oxygen Concentration - - Weight 71.4 kg (157 lb 6.4 oz) 12/06/2024 9:26 A M ORDER TRACER Height 166.4 cm (5' 5.5 ) 12/06/2024 9:26 AM ORDER TRACER Body Mass Index 25.79 12/06/2024 9:26 AM ORDER TRACER Plan of Treatment Health Maintenance Due Date Last Done Comments BONE DENSITY TESTING 1955 COLON MONITORING 1955 COLONOSCOPY - COLON CA SCREENING 1955 CT COLONOGRAPHY - COLON CA SCREENING 1955 FIT - COLON CA SCREENING 1955 [...] DIABETES-FOOT EXAM WITH MONOFILAMENT 12/06/2024 DIABETES-HGB A1C 06/29/2025 12/30/2024 DIABETES-SERUM CREATININE 12/30/20252024, 05/17/2024 COLOGUARD (AGES 45-75) - COL ON CA SCREENING 02/26/2026 02/26/2023 Colorectal Cancer Screening 02/26/2026 HEPATITIS B VACCINE Aged Out No longe r eligible based on patient's age to complete this topic HIB VACCINE Aged Out No longer eligi ble based on patient's age to complete this topic HPV VACCINE Aged Out No longer eligi ble based on patient's age to complete this topic MENINGOCOCCAL (Group B) VACCINE SHARED DECISION-MAKING Aged Out No longer eligible based on patient's age to complete this topic MENINGOCOCCAL GROUPS A/C/Y/W VACCINE Aged Out No longer eligible b ased on patient's age to complete this topic Goals Goal Patient Goal Type Associated Problems Recent Progress Patient-Stated? Author Medication Management General On track( 025 9:38 AM ORDER TRACER) Cammie Rodriguez, RN Note: Expected end date: Ongoing Interventions: Take all medications as prescribed Let your doctor know right away about any changes in your medications Make sure to request a refill of your medication at least one week prior to your last dose Procedures Procedure Name Priority Date/Time Associated Diagnosis Comments CBC W DIFF (EXTERNAL RESULT ENTRY) Routine 12/30/2024 COMP MET PANEL (EXTERNAL RESULT ENTRY) Routine 12/30/2024 LIPID PROFILE (EXTERAL RESULT ENTRY) Routine 12/30/2024 HEMOGLOBIN A1C (EXTERNAL RESULT ENTRY) Routine 12/30/2024 T4 FREE (EXTERNAL RESULT ENTRY) Routine 12/30/2024 TSH (EXTERNAL RESULT ENTRY) Routine 12/30/2024 MA LIVER ELASTOGRAPHY Routine 12/06/2024 9:11 AM ORDER TRACER Elevated liver enzymes from Last 3 Months Results * CBC W DIFF (EXTERNAL RESULT ENTRY) (12/30/2024) WBC (EXTERNAL RESULT) 6.1 10^3/ul Hemoglobin (EXTERNAL RESULT) 14.4 g/dl Hematocrit (EXTERNAL RESULT) 42.6 % Platelets (EXTERNAL RESULT) 217 10^3/ul Neutrophil Absolute (EXTERNAL RESULT) 3.4 10^3/ul Blood BLOOD SPECIMEN / Unknown 12/30/2024 Historical Provider LAB - HEMATOLOGY ORDERABLES * COMP MET PANEL (EXTERNAL RESULT ENTRY) (12/30/2024) Glucose (EXTERNAL) 85 mg/dL Sodium (EXTERNAL RESULT) 142 mmol/L Potassium (EXTERNAL RESULT) 4.1 mmol/L Chloride (EXTERNAL RESULT) 103 mmol/L CO2 (EXTERNAL) 29 mmol/L Calcium (EXTERNAL RESULT) 9.9 mg/dL Anion Gap (EXTERNAL RESULT) 10 mmol/L BUN (EXTERNAL RESULT) 10 mg/dL Creatinine (EXTERNAL RESULT) 0.64 mg/dl Alkaline Phosphatase (EXTERNAL RESULT) 70 U/L ALT (EXTERNAL RESULT) 21 U/L AST (EXTERNAL RESULT) 27 U/L Protein Total (EXTERNAL RESULT) 8.0 gm/dL Albumin (EXTERNAL RESULT) 4.4 gm/dL Bilirubin Total (EXTERNAL RESULT) 0.6 mg/dL eGFR MDRD (EXTERNAL RESULT) eGFR (EXTERNAL) Blood BLOOD SPECIMEN / Unknown 12/30/2024 Historical Provider LAB - CHEMISTRY O RDERABLES * LIPID PROFILE (EXTERAL RESULT ENTRY) (12/30/2024) Cholesterol (EXTERNAL RESULT) 125 mg/dL Triglycerides (EXTERNAL RESULT) 127 mg/dL HDL (EXTERNAL RESULT) 50 mg/dL LDL (EXTERNAL RESULT) 44 mg/dL VLDL (EXTERNAL RESULT) Chol HDL Ratio (External Result) Blood BLOOD SPECIMEN / Unknown 12/30/2024 Historical Provider LAB - CHEMISTRY O RDERABLES * TSH (EXTERNAL RESULT ENTRY) (12/30/2024) TSH (EXTERNAL RESULT) 0.438 uIU/mL Blood BLOOD SPECIMEN / Unknown 12/30/2024 Historical Provider LAB - CHEMISTRY O RDERABLES * T4 FREE (EXTERNAL RESULT ENTRY) (12/30/2024) T4 Free (EXTERNAL RESULT) 1.64 ng/dl Blood BLOOD SPECIMEN / Unknown 12/30/2024 Historical Provider LAB - CHEMISTRY O RDERABLES * HEMOGLOBIN A1C (EXTERNAL RESULT ENTRY) (12/30/2024) Hemoglobin A1c (EXTERNAL RESULT) 5.3 % Blood BLOOD SPECIMEN / Unknown 12/30/2024 Historical Provider LAB - CHEMISTRY O RDERABLES * MA LIVER ELASTOGRAPHY (12/06/2024 9:11 AM ORDER TRACER) Narrative Gadiel Pardo MD - 12/06/2024 9:11 AM ORDER TRACER Gadiel Pardo MD 12/06/2024 9:35 AM Diagnosis: [...] cirrhosis-related complications over the next 3-5 years (Boearleier, 2022). Liver stiffness > 20 kPa is also associated with a high probability of complications of portal hypertension including varices and ascites. Liver stiffness > 50 kPa is associated with a high risk of variceal bleeding. These interpretations are based on the following published data: Sameera J, Laura m H, Selene M, Romeo C, Darius M, Cure S, Ofeliao J, Nasr P, Tallab L, Canivet CM, Kechagias S, S nchez Y, Jerricacuwale E, Anand A, Noah M, Leon J, Kayla A and Jesus M. Non-invasive tests accurately stratify patients with NAFLD based on their risk of liver-related events. J Hepatol (2021) 76: 7650-0139. Marley PJ, Jonas M, Lennie M, et al. Accuracy of FibroScan controlled attenuation parameter and liver stiffness measurement in assessing steatosis and fibrosis in patients with nonalcoholic fatty liver disease. Gastroenterology 2019;156:2353-0831. Dwaine ARMANDO, Alena R, Van Natta ML, et al. [...] Agile3+ and Agile4 scores (Mildred, 2022; Tisha, 202). Rosaura TA, Van Natta ML, Corinna M, Martinez A, et al. Validation of the accuracy of the FAST score for detecting patients with at-risk nonalcoholic steatohepatitis (WHITAKER) in a [place] cohort and comparison to other non-invasive algorithms. PLoS ONE (2021) 17: [id number]. Mildred DOWELL, Jerrell Morales, Julio César ZM, et al. Enhanced diagnosis of advanced fibrosis and cirrhosis in individuals with NAFLD using FibroScan-based Agile scores. J Hepatol (2022) 78: 247-259. Tisha et al. Vibration-controlled transient elastography scores to predict liver-related events in steatotic liver disease. KRYSTAL (2024) 331: 7945-0159 Fibroscan LSM can also be used with laboratory parameters without formulas to assess prognosis. According to the Baveno-VII criteria (Doyle, 2021), Fibroscan LSM <=15 kPa plus a platelet count of >=[id number]/L rules out clinically significant portal hypertension (sensitivity [...] FIB-4 score (Mick et al. Hepatology Communications 2019;3:9092-0077) or NAFLD Fibrosis score (Gipson et al. Clinical Gastroenterology and Hepatology 2019;17:4822-8062 using routine clinical data. Notes: 1. Fibroscan [...] additional interpretive data was last updated 11/19/24.) [email or web address] Cris Jones Shimon MANUFACTURING ENGINEER ASSEMBLY-POLICYHOLDER INFORMATION CLERK PROCEDURE/HI NOR SURGICAL ORDERABLES from Last 3 Months Care Teams Mold Sander Relationship Specialty Start Date End Date Marquita Dutta DO [address] [place] [address] PCP - General Family Medicine 05/17/24
--- OUTSIDE RECORDS SUMMARY | 2025-02-07 13:51 | XMS_ITS | Data Portability ---
Author Organization [facility] Address [address] [place] [address] Care Team Providers Care Cleat Feeder Name Role Phone GALLO WAKEFIELD Technical Support Internship Unavailable Assessment No assessment recorded. Plan of Treatment Reminders Order Date Submit Date Provider Last Modified By Organization Details Last Modified Time Details Appointments None recorded. Lab bacterial vaginosis + vaginitis panel, vaginal 2020 021 [facility], [address], [place], [address], 1 19:11:13 Pap smear tests - FPAR 2.0 set 2020 021 [facility], [address], [place], [address], 1 17:08:51 pap, IG + HPV, cervical 2014 015 [facility], [address], [address], [place], [address], 5 06:09:50 bacterial vaginosis + vaginitis panel, vaginal 2014 015 [facility], [address], [address], [place], [address], 5 14:29:56 HSV (1+2) DNA, qual, PCR, unspecifi ed specimen 2014 015 [facility], [address], [address], [place], [address], 5 14:29:57 culture, vaginal/r ectal, streptoco ccus group B 2014 015 [facility], [address], [address], [place], [address], 5 14:29:58 Referral None recorded. Procedures None recorded. Surgeries None recorded. Imaging MAMMO, screening , digital, bilateral 2020 021 [facility], [address], [place], [address], 1 09:35:06 US, pelvis, transabdo kevin + transvagi nal 2020 021 [facility], [address], [place], [address], 1 12:01:41 MAMMO, screening , digital, bilateral 2016 017 [facility] (Mammogram), [facility], [place], [address], 7 10:08:08 DEXA, axial skeleton 2016 017 [facility] (Radiology), [facility], [place], [address], 7 10:08:08 mammogram , screening 2014 015 [email or web address] Not available 6 09:37:47 Medication Orders Premarin 0.625 mg/gram vaginal cream 2016 017 [facility] #[id number], [address], [place], [place], [id number], 1 08:24:35 multivita min tablet 2016 017 [facility] #[id number], [address], [place], [place], [id number], 1 08:24:13 calcium 600 mg (as carbonate )-vitamin D3 20 mcg (800 unit) tablet 2016 017 [facility] #[id number], [address], [place], [place], [id number], 1 08:23:46 Estrace 0.01% (0.1 mg/gram) vaginal cream 2014 015 [facility] #[id number], [address] , [place], [place], [id number], 1 08:24:04 Patient TargetsNo targets recorded. Patient Instructions Encounter Date Encounter Id Patient Instructions Last Modified By Organization Details Last Modified Time 09/25/2015 [id number] learning about breast cancer screening [email or web address] Not available 09/25/2015 16:42:48 12/04/2016 [id number] atrophic vaginitis: care instructions [email or web address] Not available 12/05/2016 10:08:08 mammogram: about this test [email or web address] Not available 12/05/2016 10:08:08 09/28/2021 [id number] atrophic vaginitis: care instructions Not available 09/28/2021 09:26:59 mammogram: about this test Not available 09/28/2021 09:26:59 Reason for Referral None Reported. Results Created Date Observation Date Name Description Value Unit Range Abnormal Flag Note LastModifiedBy Organization Detail LastModifiedTime 09/25/20 15 09/27/2015 bacte rial vagin osis + vagin itis panel , vagin al trich vag by TANNA NEGATI VE negati ve Not Available [facility] ([facility]) [address] [facility], [place], [address], 10/03/2015 14:29:56 09/25/20 15 09/28/2015 bacte rial vagin osis + vagin itis panel , vagin al atopobium vaginae LOW - 0 score Not Available [facility] ([facility]) [address] [place], [address], 10/03/2015 14:29:56 09/25/20 15 09/28/2015 bacte rial vagin osis + vagin itis panel , vagin al bvab 2 LOW - 0 score Not Available [facility] ([facility]) [address] [place], [address], 10/03/2015 14:29:56 09/25/20 15 09/28/2015 bacte rial vagin osis + vagin itis panel , vagin al megasphaera 1 LOW - 0 score CALCU LATE TOTAL SCORE BY KENISHA Nuñez THE 3 INDIV IDUAL BACTE RIAL VAGIN OSIS (BV) MARKE R SCORE S TOGET HER. TOTAL SCORE IS INTER PRETE D FOLLO WS: TOTAL SCORE 0-1: INDIC ATES THE ABSEN CE OF BV. TOTAL SCORE 2: INDET ERMIN ATE FOR BV. ADDIT IONAL CLINI RAOUL DATA SHOUL D BE EVALU ATED TO ESTAB AMADO A DIAGN OSIS. TOTAL SCORE 3-6: INDIC ATES THE PRESE NCE OF BV. THIS TEST WAS DEVEL OPED AND ITS PERFO RMANC E KAN CTERI STICS DETER MINED BY [facility]. IT HAS NOT BEEN CLEAR ED OR APPRO UMBERTO BY THE FOOD AND DRUG ADMIN ISTRA TION. THE FDA HAS DETER MINED THAT SUCH CLEAR ANCE OR APPRO CY IS NOT NECES RUFINO. Not Available [facility] ([facility]) [address] [place], [address], 10/03/2015 14:29:56 09/25/20 15 09/28/2015 bacte rial vagin osis + vagin itis panel , vagin al albert albicans, TANNA NEGATI VE negati ve Not Available [facility] ([facility]) [address] [place], [address], 10/03/2015 14:29:56 09/25/20 15 09/28/2015 bacte rial vagin osis + vagin itis panel , vagin al albert glabrata, TANNA NEGATI VE negati ve THIS TEST WAS DEVEL OPED AND ITS PERFO RMANC E KAN CTERI STICS DETER MINED BY [facility]. IT HAS NOT BEEN CLEAR ED OR APPRO UMBERTO BY THE FOOD AND DRUG ADMIN ISTRA TION. THE FDA HAS DETER MINED THAT SUCH CLEAR ANCE OR APPRO CY IS NOT NECES RUFINO. Not Available [facility] ([facility]) [address] [place], [address], 10/03/2015 14:29:56 09/25/20 15 10/03/2015 bacte rial vagin osis + vagin itis panel , vagin al chlamydia trachomatis, TANNA NEGATI VE negati ve Not Available [facility] ([facility]) [address] [place], [address], 10/03/2015 14:29:56 09/25/20 15 10/03/2015 bacte rial vagin osis + vagin itis panel , vagin al neisseria gonorrhoeae, TANNA NEGATI VE negati ve Not Available [facility] ([facility]) [address] [place], [address], 10/03/2015 14:29:56 09/25/20 15 09/27/2015 HSV (1+2) DNA, qual, PCR, unspe cifie d speci men hsv 1 TANNA NEGATI VE negati ve Not Available [facility] ([facility]) [address] [place], [address], 10/03/2015 14:29:57 09/25/20 15 09/27/2015 HSV (1+2) DNA, qual, PCR, unspe cifie d speci men hsv 2 TANNA NEGATI VE negati ve Not Available [facility] ([facility]) [address] [facility], [place], [address], 10/03/2015 14:29:57 09/25/20 15 09/27/2015 cultu re, vagin al/re ctal, strep tococ cus group B strep gp B TANNA NEGATI VE negati ve PENIC ILLIN G, AMPIC ILLIN , OR CEFAZ CAMILO ARE INDIC ATED FOR INTRA PARTU M PROPH YLAXI S OF PERIN ATAL GROUP B STREP (GBS) COLON IZATI ON. REFLE X SUSCE PTIBI LITY TESTI NG SHOUL D BE PERFO RMED PRIOR TO USE OF CLIND AMYCI N ONLY ON GBS ISOLA WILLIAM FROM PENIC ILLIN -BETHANY RGIC WOMEN WHO ARE CONSI DERED A HIGH RISK FOR ANAPH YLAXI S. TREAT MENT WITH VANCO MYCIN WITHO UT ADDIT IONAL TESTI NG IS WARRA NTED IF RESIS TANCE TO CLIND AMYCI N IS NOTED . (CDC GUIDE LINES , MMWR, 2009) Not Available [facility] ([facility]) [address] [facility], [place], [address], 10/03/2015 14:29:57 09/25/20 15 09/28/2015 pap, IG + HPV, cervi raoul diagnosis: COMMEN T NEGAT CLARA FOR INTRA EPITH ELIAL LESIO N AND MALCHELSEY SMITHCY . REACT CLARA CELLU LAR VAZQUEZ ES AND/O R REPAI R ARE PRESE NT. Not Available [facility] ([facility]) [address] [facility], [place], [address], 10/04/2015 06:09:50 09/25/20 15 09/28/2015 pap, IG + HPV, cervi raoul specimen adequacy: COMMEN T SATIS FACTO RY FOR EVALU ATION . ENDOC ERVIC AL AND/O R SQUAM OUS METAP LASTI C CELLS (ENDO CERVI RAOUL COMPO NENT) ARE PRESE NT. Not Available [facility] ([facility]) [address] [facility], [place], [address], 10/04/2015 06:09:50 09/25/20 15 09/28/2015 pap, IG + HPV, cervi raoul performed by: NICKOLAS STRONG , CYTOT ECHNO LOGIS T (ASCP ) Not Available [facility] ([facility]) [address] [place], [address], 10/04/2015 06:09:50 09/25/20 15 09/28/2015 pap, IG + HPV, cervi raoul electronical ly signed by: NICKOLAS Graham MD, PATHO LOGIS T Not Available [facility] ([facility]) [address] [place], [address], 10/04/2015 06:09:50 09/25/20 15 09/28/2015 pap, IG + HPV, cervi raoul . . Not Available [facility] ([facility]) [address] [place], [address], 10/04/2015 06:09:50 09/25/20 15 09/28/2015 pap, IG + HPV, cervi raoul note: NICKOLAS Herrera THE PAP SMEAR IS A SCREE ALLAN TEST DESIG CASPER TO AID IN THE DETEC TION OF AMINA LIGNA NT AND MALIG NANT CONDI TIONS OF THE UTERI NE CERVI X. IT IS NOT A DIAGN OSTIC PROCE DURE AND SHOUL D NOT BE USED THE SOLE MEANS OF DETEC TING CERVI RAOUL CANCE R. BOTH FALSE -POSI TIVE AND FALSE -NEGA TIVE REPOR TS DO OCCUR . Not Available [facility] ([facility]) [address] [place], [address], 10/04/2015 06:09:50 09/25/20 15 09/28/2015 pap, IG + HPV, cervi raoul test methodology: NICKOLAS Herrera THIS LIQUI D BASED THINP REP(R ) PAP TEST WAS SCREE CASPER WITH THE USE OF AN IMAGE GUIDE Bibi Rawls Not Available [facility] ([facility]) [address] [place], [address], 10/04/2015 06:09:50 09/25/20 15 09/29/2015 pap, IG + HPV, cervi raoul HPV aptima POSITI VE negati ve abnormal THIS TEST DETEC TS FOURT EEN HIGH- RISK HPV TYPES (16/1 8/31/ 33/35 /39/4 5/ 51/52 /56/5 8/59/ 66/68 ) WITHO UT DIFFE RENTI ATION . Not Available [facility] ([facility]) [address] [place], [address], 10/04/2015 06:09:50 09/25/20 15 10/03/2015 writt en autho caitlin rcv written authoriz rcv COMMEN T WRITT EN AUTHO RIZAT ION FOR ADDED TEST( S) HAS BEEN RECEI UMBERTO. TEST [address] GALLO BURGESS. Not Available [facility] ([facility]) [address] [place], [address], 10/04/2015 06:09:51 09/25/20 15 09/26/2015 pleas e note please note COMMEN T WE HAVE RECEI UMBERTO YOUR REQUE ST FOR ADDIT IONAL TESTI NG OR TEST VERIF ICATI ON. YOU WILL BE NOTIF IED IF WE ARE UNABL E TO PROCE SS YOUR REQUE ST. Not Available [facility] ([facility]) [address] [facility], [place], [address], 10/04/2015 06:09:51 09/28/20 21 10/02/2021 IGP, APTIM A HPV HPV aptima Negati ve negati ve This nucle ic acid ampli ficat ion test detec ts fourt een high- risk HPV types (16,1 8,31, 33,35 ,39,4 5,51, 52,56 ,58,5 9,66, 68) witho ut diffe renti ation . Not Available [facility] ([facility]) [address] [place], [address], 10/03/2021 17:08:51 09/28/20 21 10/03/2021 IGP, APTIM A HPV diagnosis: Commkylie t NEGAT CLARA FOR INTRA EPITH ELIAL LESIO N OR MALIG YVONNE . Not Available [facility] ([facility]) [address] [place], [address], 10/03/2021 17:08:51 09/28/20 21 10/03/2021 IGP, APTIM A HPV specimen adequacy: Nickolas t Satis facto ry for evalu ation . Endoc ervic al and/o r squam ous metap lasti c cells (endo cervi raoul compo nent) are prese nt. Not Available [facility] ([facility]) [address] [place], [address], 10/03/2021 17:08:51 09/28/20 21 10/03/2021 IGP, APTIM A HPV clinician provided ICD10: Nickolas herrera Z01.4 19 Not Available [facility] ([facility]) [address] [place], [address], 10/03/2021 17:08:51 09/28/20 21 10/03/2021 IGP, APTIM A HPV performed by: Nickolas paniagua, Catrina herrera (ASCP ) Not Available [facility] ([facility]) [address] [place], [address], 10/03/2021 17:08:51 09/28/20 21 10/03/2021 IGP, APTIM A HPV . . Not Available [facility] ([facility]) [address] [place], [address], 10/03/2021 17:08:51 09/28/20 21 10/03/2021 IGP, APTIM A HPV note: Commen t The Pap smear is a scree allan test desig casper to aid in the detec tion of amina ligna nt and malig nant condi tions of the uteri ne cervi x. It is not a diagn ostic proce dure and shoul d not be used as the sole means of detec ting cervi raoul cance r. Both false -posi tive and false -nega tive repor ts do occur . Not Available [facility] ([facility]) [address] [place], [address], 10/03/2021 17:08:51 09/28/20 21 10/03/2021 IGP, APTIM A HPV test methodology: Commen t This liqui d based ThinP rep(R ) pap test was purae casper with the use of an image guide bibi silverio. Not Available [facility] ([facility]) [address] [place], [address], 10/03/2021 17:08:51 09/28/20 21 10/02/2021 NUSWA B VAGIN ITIS PLUS (VG+) trich vag by TANNA Negati ve negati ve Not Available [facility] ([facility]) [address] [place], [address], 10/03/2021 19:11:13 09/28/20 21 10/02/2021 NUSWA B VAGIN ITIS PLUS (VG+) chlamydia trachomatis, TANNA Negati ve negati ve Not Available [facility] ([facility]) [address] [place], [address], 10/03/2021 19:11:13 09/28/20 21 10/02/2021 NUSWA B VAGIN ITIS PLUS (VG+) neisseria gonorrhoeae, TANNA Negati ve negati ve Not Available [facility] ([facility]) [address] [place], [address], 10/03/2021 19:11:13 09/28/20 21 10/03/2021 NUSWA B VAGIN ITIS PLUS (VG+) atopobium vaginae Low - 0 score Not Available [facility] ([facility]) [address] [place], [address], 10/03/2021 19:11:13 09/28/20 21 10/03/2021 NUSWA B VAGIN ITIS PLUS (VG+) bvab 2 Low - 0 score Not Available [facility] ([facility]) [address] [place], [address], 10/03/2021 19:11:13 09/28/20 21 10/03/2021 NUSWA B VAGIN ITIS PLUS (VG+) megasphaera 1 Low - 0 score Calcu late total score by kenisha nuñez the 3 indiv idual bacte rial vagin osis (BV) marke r score s toget her. Total score is inter prete d as follo ws: Total score 0-1: Indic ates the absen ce of BV. Total score 2: Indet ermin ate for BV. Addit ional clini raoul data shoul d be evalu ated to estab amado a diagn osis. Total score 3-6: Indic ates the prese nce of BV. This test was devel oped and its perfo rmanc e kan cteri stics deter mined by [facility]. It has not been clear ed or appro umberto by the Food and Drug Admin istra tion. Not Available [facility] ([facility]) [address] [facility], [place], [address], 10/03/2021 19:11:13 09/28/20 21 10/03/2021 NUA B VAGIN ITIS PLUS (VG+) albert albicans, TANNA Negati ve negati ve Not Available [facility] ([facility]) [address] [facility], [place], [address], 10/03/2021 19:11:13 09/28/20 21 10/03/2021 NUA B VAGIN ITIS PLUS (VG+) albert glabrata, TANNA Negati ve negati ve Not Available [facility] ([facility]) [address] [facility], [place], [address], 10/03/2021 19:11:13 03/11/20 16 01/18/2016 mammo lio garza No observ ation record ed. Not Available 03/19 17:08:01 03/21/20 16 03/21/2016 dexa PT NAME: SAGAR CAROLINA EEHank W : 1954 PT SEX/AG E: F/60 PT ACCT NUMBER : [id number] PT MR#: [id number] ROOM/B ED: PT STATUS : REG CLI DATE OF EXAMIN ATION: ORDERI PHYSIC LAXMI: GALLO CAUSEY MAN M.Hernesto ATTEND [facility] PHYSIC LAXMI: GALLO CAUSEY MAN , MBuddy. DICTAT ING PHYSIC LAXMI: Shanthi THAPA M.D. 020 DIGITA L MAMM DIAG-R IGHT W/CAD INDICA TION: Right breast follow up from screen ing mammog ron perfor med on [facility] mobile mammog kuldeep van: Oval nodule at middle depth of right breast medial ly seen on cranio caudal view only TECHNI QUE: Rolled medial cranio caudal , rolled latera l cranio caudal ; compre ssion cranio caudal views and standa rd cranio caudal view. COMPAR GNUNAR: [address] [place] , [place] bilate ral digita l screen ing mammog ron 02/22/14 [facility] bilate ral digita l mammog ron FINDIN GS: No domina nt mass or cornel ectura l distor tion is eviden t on these additi onal views. There is hetero geneou sly dense stroma which may obscur e small masses . Recomm end sonogr aphic correl ation of right breast . IMPRES SABRINA: BI-RAD S catego ry 0: Incomp lete; need additi onal imagin g evalua tion Recomm endati on right whole breast ultras ound examin ation Review ed, dictat ed and finali zed at [facility] on [facility]. __ Electr onical ly signed by: TESSY THAPA Date: Time: 17:10 TESSY THAPA M.D.__ ___ [facility] [address] [place] [address] [phone] (Imaging) [address] [facility], [place], [address], 03/22/2016 13:04:40 03/21/20 16 03/21/2016 mammo gram, spot compr essio n PT NAME: JOBY ValenzuelaSAGAR W : 1954 PT SEX/AG E: F/60 PT ACCT NUMBER : [id number] PT MR#: [id number] ROOM/B ED: PT STATUS : REG CLI DATE OF EXAMIN ATION: ORDERI NG PHYSIC LAXMI: GALLO CAUSEY MAN MYuniorDYunior ATTEND ING PHYSIC LAXMI: GALLO CAUSEY MAN , MBuddy. DICTAT ING PHYSIC LAXMI: Shanthi THAPA M.D. 041 US BREAST COMPLE TE RT INDICA TION: Abnorm al screen ing mamm[facility] TECHNI QUE: High-r esolut ion ultras ound imagin g of the right breast , includ ing all 4 quadra nts and subare olar area COMPAR GUNNRA: 03/21/16 diagno stic right digita l mammog ron FINDIN GS: At 4:00 positi on 1 cm from the nipple there is a parall el circum scribe d oval hypoec hoic solid lesion measur ing 2.5 x 9.5 x 6.5 mm, withou t suspic ious shadow ing. No solid mass or suspic ious shadow ing is noted otherw ise. No cyst is eviden t. IMPRES SABRINA: BI-RAD S catego ry 2: Benign Recomm endati on: Routin e annual mammog raphic screen ing Review ed, dictat ed and finali zed at Locati on A. __ Electr onical ly signed by: TESSY THAPA Date: Time: 17:12 TESSY THAPA M.D.__ ___ [facility] [address] [place] [email or web address] [facility] (Mammogram) [address], [place], [address], 03/22/2016 13:05:40 01/29/20 17 01/21/2017 MAMMO , scree allan, bilat eral No observ ation record ed. [email or web address] Not Available 2016 15:56:19 02/04/20 18 MAMMO , scree allan, bilat eral No observ ation record ed. [email or web address] Not Available 2017 09:07:03 10/16/20 21 10/16/2021 US, pelvi s, trans abdom inal + trans vagin al No observ ation record ed. [address], [place], [address], 10/24/2021 13:17:07 Result Notes None recorded. Problems Name Problem SNOMED Code Status Onset Date Resolution Date Notes Provider Name and Address Organization Details Recorded Time Menopausal symptom 38383509 Active Gallo Good null, [place] - [place] 6 21:30:14 Human papilloma virus infection 479650505 Active Gallo Good null[place] [facility] 6 21:30:14 Mammography abnormal 087542131 Active Gallo Goodjohn brothers, [place] - [facility] 6 21:30:14 Problem Notes None recorded. Procedures Surgical History Date Name Laterality Status Provider Name and Address Organization Details Recorded Time 09/24/20 15 Date of Last Pap Smear completed Dede Ching MA [facility] 12/04/2016 16:31:23 02/23/20 15 Most Recent Mammogram completed Dede Ching [facility] 09/25/2015 15:53:43 Tubal Ligation completed Dede Ching [facility] 12/04/2016 16:31:01 Tonsillectomy completed Dede Ching MA [facility] 09/25/2015 16:06:35 Imaging Results Imaging Date Name Status LastModified by Organization Details LastModified Time 01/18/2016 mammogram, screening [place] [id number] Information not available 03/19/2016 17:08:01 03/21/2016 dexa completed [address] (Imaging) [address] [place] [address] [address], [place], [address], 03/22/2016 13:04:40 03/21/2016 mammogram, spot compression completed [email or web address] [facility] (Mammogram) [address], [place], [address], 03/22/2016 13:05:40 01/21/2017 MAMMO, screening, bilateral completed [email or web address] Information not available 01/28/2017 15:56:19 02/03/2018 MAMMO, screening, bilateral completed [email or web address] Information not available 02/04/2018 09:07:03 10/16/2021 US, pelvis, transabdominal + transvaginal completed [place] [id number] [facility] [address], [place], [address], 10/24/2021 13:17:07 Procedure Notes None recorded. Medical Equipment None Reported. Allergies Allergen ID Allergen Name Allergen Category Reaction Reaction Severity Criticality Documentation Date Start Date Code Code System Note Provider Name and Address Organization Details Recorded Time 62899 aloe extract food,medi cation respirato ry distress moderate Not available 09/25/2015 96568 RxNorm Not Available Not Available Not Available Medications Name Sig Start Date Stop Date Status Note LastModified by Organization Details LastModified Time multivitami n tablet Take 1 tablet every day by oral route. 09/28 completed Not Available Not Available Not Available atorvastati n 80 mg tablet active Not Available Not Available Not Available azithromyci n 250 mg tablet 09/28 completed Not Available Not Available Not Available pravastatin 40 mg tablet 09/28 completed Not Available Not Available Not Available Synthroid 125 mcg tablet TAKE 1 TABLET BY MOUTH DAILY active Not Available Not Available No t Available prednisone 20 mg tablet 09/28 completed Not Available Not Available Not Available sulfamethox azole 800 mg-trimetho prim 160 mg tablet 09/28 completed Not Available Not Available Not Available omeprazole 40 mg capsule,del ayed release TAKE 1 CAPSULE BY MOUTH DAILY active Not Available Not Available No t Available tramadol 50 mg tablet active Not Available Not Available No t Available amoxicillin 875 mg tablet active Not Available Not Available Not Available benzonatate 100 mg capsule 09/28 completed Not Available Not Available Not Available cephalexin 500 mg capsule 09/28 completed Not Available Not Available Not Available tobramycin 0.3 % eye drops 09/28 completed Not Available Not Available Not Available diclofenac sodium 75 mg tablet,tuan yed release 09/28 completed Not Available Not Available Not Available levofloxaci n 500 mg tablet 09/28 completed Not Available Not Available Not Available fluticasone propionate 50 mcg/actuati on nasal spray,suspe nsion active Not Available Not Available Not Available doxycycline hyclate 100 mg tablet 09/28 completed Not Available Not Available Not Available Ventolin HFA 90 mcg/actuati on aerosol inhaler 09/28 completed Not Available Not Available Not Available Estrace 0.01% (0.1 mg/gram) vaginal cream Insert 1 g twice a week by vaginal route. 09/28 completed Not Available Not Available Not Available Premarin 0.625 mg/gram vaginal cream INSERT 1 GRAM VAGINALLY TWO TO THREE TIMES PER WEEK 09/28 completed Not Available Not Available Not Available nitrofurant oin monohydrate /macrocryst als 100 mg capsule TAKE 1 CAPSULE BY MOUTH TWICE DAILY WITH FULL GLASS OF WATER 09/28 completed Not Available Not Available Not Available calcium 600 mg (as carbonate)- vitamin D3 20 mcg (800 unit) tablet Take 1 tablet twice a day by oral route for 30 days. 09/28 completed Not Available Not Available Not Available Vascepa 1 gram capsule active Not Available Not Available Not Available Virtussin AC 10 mg-100 mg/5 mL oral liquid 09/28 completed Not Available Not Available Not Available Vitals Date Recorded Body height Body mass index (BMI) Body weight Heart rate Body temperature Oxygen saturation Oxygen saturation in Arterial blood by Pulse oximetry Systolic blood pressure Diastolic blood pressure Provider Name and Address Organization Details Last Updated DateTime 1 165.1 cm 30.7 kg/m2 15621.8 g 73 /min 99 [degF] 97 % 97 % 118 mm[Hg] 76 mm[Hg] Tanesha Meza MA [place] - [facility] 1 08:52:05 Date Recorded Body height Body mass index (BMI) Body weight Systolic blood pressure Diastolic blood pressure Provider Name and Address Organization Details Last Updated DateTime 09/25/2015 165.1 cm 32.3 kg/m2 91823.91 978 g 134 mm[Hg] 72 mm[Hg] Dede Ching MA [facility] 5 16:08:53 Date Recorded Body height Body weight Body mass index (BMI) Systolic blood pressure Diastolic blood pressure Provider Name and Address Organization Details Last Updated DateTime 12/04/2016 165.1 cm 40864.29 g 32.9 kg/m2 112 mm[Hg] 72 mm[Hg] Dede Ching MA [facility] 7 16:39:55 Social History Question Answer Notes LastModified by Organizat ion Details LastModified Time Tobacco Smoking Status Never Smoker Dede Ching MA [facility], [facility] 09/25/2015 16:06:35 Do You Have An Advance Directive? No Information not available 09/25/2015 What Is Your Level Of Alcohol Consumption? Occasional Information not available 09/25/2015 Is Blood Transfusion Acceptable In An Emergency? Yes Information not available 09/25/2015 What Is Your Level Of Caffeine Consumption? Heavy Information not available 09/25/2015 How Much Tobacco Do You Chew? None Information not available 09/25/2015 Are You Currently Employed? Yes Information not available 09/25/2015 What Type Of Diet Are You Following? REGULAR Information not available 09/25/2015 Which Illicit Or Recreational Drugs Have You Used? 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 With Others Information not available 09/25/2015 How Many Children Do You Have? 2 Information not available 09/25/2015 Performs Monthly Self-breast Exam? No Information no t available 09/25/2015 Do You Use Protection During Sex? No Information not available 09/25/2015 What Is Your Relationship Status? Information not available 09/25/2015 Seat Belts Used Routinely Yes Information not available 09/25/2015 Are You Sexually Active? Yes Information not available 09/25/2015 General Stress Level Medium Information not available 09/25/2015 Do You Use Sunscreen Routinely? Yes Information not available 09/25/2015 Sex: Unknown Functional Status Question Answer Note LastModified by Organizat ion Details LastModified Time What is your exercise level? Occasional Information not available 09/25/2015 Mental Status None recorded. Family History Relationship Description Onset Age of this Age Resolved Age Notes LastModified by Organization Details LastModified Time Sister Malignant tumor of breast [email or web address] Not available 09/25 16:42:53 Sister Myocardial infarction Not available 12/04 16:30:30 Father Malignant tumor of colon [email or web address] Not available 09/25 16:42:53 Father Diabetes mellitus [email or web address] Not available 09/25 16:42:53 Father Heart disease mwasserman Not available 09/25 16:42:53 Father Myocardial infarction Not available 12/04 16:30:23 Mother Heart disease mwasserman Not available 09/25 16:42:53 Mother Myocardial infarction Not available 12/04 16:30:35 Maternal Grandmother Heart disease mwasserman Not available 09/25 16:42:53 Son Heart disease mwasserman Not available 09/25 16:42:53 Maternal Grandfather Heart disease mwasserman Not available 09/25 16:42:53 Paternal Grandmother Heart disease mwasserman Not available 09/25 16:42:53 Paternal Grandfather Heart disease mwasserman Not available 09/25 16:42:53 Maternal Aunt Heart disease mwasserman Not available 09/25 16:42:53 Maternal Uncle Heart disease mwasserman Not available 09/25 16:42:53 Paternal Aunt Heart disease mwasserman Not available 09/25 16:42:53 Paternal Uncle Heart disease mwasserman Not available 09/25 16:42:53 Medical History Condition Response Heart Problems N Other N Breast Cancer N Thyroid Problems Y Kidney or Bladder Problems N Lung Disease N GI Problems N Depression N Acne N Breast Problem N Eating Disorder N Anemia N Anesthesia Complications N Headaches/Migraines N Ovarian Cancer N Diabetes N Anxiety Disorder N Blood Transfusions N Arthritis N Polyps N Infertility N Acid Reflux (GERD) Y Cancer N Stroke N Abuse/Domestic Violence N Asthma N Endometriosis N High Cholesterol Y Hepatitis N Heart Disease N Fibromyalgia N Pre-Eclampsia N Hypertension N Osteoporosis N Kidney Disease N Gynecological History Statement/Question Response Abnormal Pap N On BCP's at Conception? N STIs/STDs N HPV Vaccine N Most Recent Mammogram 02/22/2015 Age at Menarche 13 Current Control Method Tubal Ligat ion Age at First Child 29 If Post Menopausal, Age at Menopause 49 Sexually Active? Y Menses Monthly N Date of Last Pap Smear 09/24/2015 Sexual Problems? Y Desired Control Method None Obstetrics History GPAL:G 2 P 2 0 0 2 Type Value Full Term 2 Living 2 Total 2 Past Encounters Encounter ID Performer Location Encounter Start Date Encounter Closed Date Diagnosis/Indication Diagnosis SNOMED-CT Code Diagnosis ICD10 Code Diagnosis Note [id number] Gallo Lanier (FLOORWORKER DISTRIBUTOR) [address] [place] [address] [id number] 0 09/25/2015 15:25:49 09/25/2015 16:43:34 Gynecologic examination 10653469 Z01.419 Screening for malignant neoplasm of breast 909369127 Z12.39 mammogram provided through work,. Menopausal symptom 99802 002 N95.1 [id number] Gallo Lanier (FLOORWORKER DISTRIBUTOR) [address] [place] [address] [id number] 12/04/2016 15:39:39 12/13/2016 14:55:50 Screening mammography 85105997 Z12.31 Screening for osteoporosis 193012457 Z13.820 Gynecologi c examination 57920092 Z01.419 Atrophic vaginitis 57552 000 N95.2 Menopausal symptom 93044 002 N95.1 [id number] WILLIAM OCHOA (Adult Med) [address] [place] [address] [id number] 0 09/28/2021 08:13:35 10/01/2021 11:03:40 Screening mammography 59559982 Z12.31 Last mammogram was a few years ago. Denies breast symtoms today.Comp laining of mid-sternu m chest pain that tends to wake her up at night when sleeping and in the mornings when she wakes up. The pain is sharp in nature and usually last 5-20 minutes. She is worried it is breast pain. She follows with a cardiologi st due to HLD and major family history of heart disease, has upcoming appointmen t next week. Hx of GERD, takes omeprazole daily.- symptoms more concerning for cardiac related issues, encouraged patient to discuss further with cardiologi st next week. If pain does not improve after a few minutes and accompanie d by other concerning cardiac symptoms, go to the ER- Gave patient mammogram order during visit today, she is aware she is supposed to call and schedule herself. Screening for osteoporosis 363923799 Z13.820 Dexa scan ordered in the past but not completed because not covered by her insurance- will complete at age 67 Gynecologi c examination 46343907 Z01.419 Here today for annual WWELast pap smear: 09/2015, [facility]s, no longer having issues with menopausal symptomsCo mplaining of intermitte nt left lower quadrant pain only with intercours e, does not tend to cause her pain at any other time.- nuswab and pap smear completed in the office today Atrophic vaginitis 88724 000 N95.2 Noted on physical exam, patient denies issues with vaginal dryness- provided her handout Left lower quadrant pain 995957905 R10.32 Complainin g of intermitte nt left lower quadrant pain only with intercours e, does not tend to cause her pain at any other time.On PE: LLQ tender to palpation, normal bimanual exam- will order pelvic US to rule out RISK CONTROL SPECIALIST causes Health Concerns Section Related Observation LastModified by Organization Detai ls LastModified Time None Recorded Concern Status LastModified by Organization Details LastModified Time None Recorded Advance Directives Directive N: Payers Encounter Date Sequence Insurance Name Policy Number Policy Larios Covered Member ID Larios Member ID Guarantor Name 09/25/2015 1 [place] [id number] Yaniv Sierra [id number] Elizabeth Sierra 12/04/2016 1 [place] [id number] Yaniv Sierra [id number] Elizabeth Sierra 09/28/2021 1 [place] [id number] Yaniv Sierra [id number] Elizabeth Sierra 09/28/2021 1 [place] [id number] Yaniv Sierra [id number] Elizabeth Sierra Notes Date Note Type Note Provider Name and Address Organization Details Recorded Time 12/04/2016 text/html Annual Instrumentation Controls Engineer Post-MenopausalRepor alejandra bypatient.Menopausal Symptoms:no menopausal symptoms; normal vaginal lubrication Vaginal Bleeding:history of menopause having occurred; no history of post menopausal bleeding Urinary Symptoms:no hematuria; no incontinence; no nocturia; no urinary frequency Vulva:no genital lesion; no vulvar atrophy Vagina:normal vaginal discharge; no vaginal atrophy Breast:no breast lump; no nipple discharge; no breast pain Sexual Complaints:no sexual complaints Psychological Symptoms:no depression; no anxiety Preventive Measures:encourage regular mammograms starting age 40; encourage self breast examination; encourage regular exercise; encourage no tobacco use; mammogram performed within the past year; needs to schedule mammogram; needs to schedule bone density 61y/o menopausal w/hx of tubal ligation for annual RISK CONTROL SPECIALIST Gallo Good [facility] 12/07/2016 11:30:30 09/28/2021 text/html Annual Instrumentation Controls Engineer Post-MenopausalRepor alejandra bypatient.Menopausal Symptoms:post-menopa use Vaginal Bleeding:history of menopause having occurred; no history of post menopausal bleeding Urinary Symptoms:no hematuria; no incontinence; no nocturia; no urinary frequency Vulva:no genital lesion; no vulvar atrophy Vagina:normal vaginal discharge; no vaginal atrophy Breast:no breast lump; no nipple discharge; no breast pain Sexual Complaints:no sexual complaints Psychological Symptoms:no depression; no anxiety Preventive Measures:encourage regular mammograms starting age 40; encourage self breast examination; encourage regular exercise; encourage no tobacco use; needs to schedule mammogram 65 y/o menopausal w/hx of tubal ligation for annual RISK CONTROL SPECIALIST. Last pap smear: 09/2015, positive for HPVComplaining of intermittent left lower quadrant pain only with intercourse, does not tend to cause her pain at any other time. Complaining of mid-sternum chest pain that tends to wake her up at night when sleeping and in the mornings when she wakes up. The pain is sharp in nature and usually last 5-20 minutes. She is worried it is breast pain. She follows with a offshore diver due to HLD and major family history of heart disease, has upcoming appointment next week. Hx of GERD, takes omeprazole daily. WILLIAM OCHOA Attn: Accounting,[address] [facility], [place], [address], [facility] 09/28/2021 15:50:11 OBGyn Episode Ob Episode Information Episode Created Date Number of Fetuses Patient Bloodtype Patient rh Status Prepregnancy Weight lbs Domestic Partner Domestic Partner Phone Father Name Crib Attendant Status 09/25/20 15 1 CLOSED Fetus Data First Name Last Name Admitted to NICU Weight (g) Sex Living Outcome Pediatric Complications Fetus ID Race Codes Race Delivery Type 3968.93 M Full Term [id number] Vaginal Feedrico Calculation Initial Federico Date Initial Exam Date Initial Exam Provider Initial Ultrasound Date Last Menstrual Period Date Ultra Sound Weeks Gestation 0 Eighteen To Twenty Week Federico Update Ultra Sound Date Fundal Height At Umbil Quickening Date Ultra Sound Latest Weeks Gestation Final Federico Confirmed By Final Federico Confirmed Date Final Federico Date Ultra Sound Latest Days Gestation 0 0 Menstrual History Last Menstrual Date Menses Monthly On Bcp Conception Prior Menses Frequency Hcg Plus Date Menarche Onset Age Delivery Information Delivery Date Delivery Type Labor Anesthesia Weeks Gestation Incision Type Labor Labor Length Hrs Delivered By Post Complications Tubal Sterilization Discharge Date Comments [address] [place] [address] Discharge Information Feeding Method Contraceptive Method Maternal HG B and HCT Levels Ob Episode Information Episode Created Date Number of Fetuses Patient Bloodtype Patient rh Status Prepregnancy Weight lbs Domestic Partner Domestic Partner Phone Father Name Crib Attendant Status 09/25/20 15 1 CLOSED Fetus Data First Name Last Name Admitted to NICU Weight (g) Sex Living Outcome Pediatric Complications Fetus ID Race Codes Race Delivery Type 3685.43 5 F Full Term [id number] Vaginal Federico Calculation Initial Federico Date Initial Exam Date Initial Exam Provider Initial Ultrasound Date Last Menstrual Period Date Ultra Sound Weeks Gestation 0 Eighteen To Twenty Week Federico Update Ultra Sound Date Fundal Height At Umbil Quickening Date Ultra Sound Latest Weeks Gestation Final Federico Confirmed By Final Federico Confirmed Date Final Federico Date Ultra Sound Latest Days Gestation 0 0 Menstrual History Last Menstrual Date Menses Monthly On Bcp Conception Prior Menses Frequency Hcg Plus Date Menarche Onset Age Delivery Information Delivery Date Delivery Type Labor Anesthesia Weeks Gestation Incision Type Labor Labor Length Hrs Delivered By Post Complications Tubal Sterilization Discharge Date Comments 5 Local 40 Discharge Information Feeding Method Contraceptive Method Maternal HG B and HCT Levels
--- OUTSIDE RECORDS SUMMARY | 2025-02-07 13:51 | XMS_ITS | Continuity of Care Document ---
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 [address] [facility] , [address], [place], [address], [place]. tel:[phone] Family History Family Member Type Diagnosis Age At Onset No Information Payers Payer name Insurance type Covered libertarian ID Authoriza tion(s) [employer] SOI CI [id number] Social History Type Description Quantity Date Captured [...]
--- OUTSIDE RECORDS SUMMARY | 2025-02-07 13:51 | XMS_ITS | CONTINUITY OF CARE DOCUMENT ---
Author Name sebastian, sebastian Address Unknown Organization [facility] Address [address] [place] [address] Phone [phone] Care Team Providers Care Field Installation Technician Name Role Phone Ehsan ANDRADE, Sanya Unavailable DuttaMarquita tran DO Unavailable Duttamarc WATSON Marquita Unavailable PROBLEMS Condition Status Date Provider Notes Diabetes mellitus, type 2 active Sanya yuan MD Coronary atherosclerosis, calcium score 152 in the LAD 12/07 active Carlos Dean Iron deficiency active Nunu Davis Shortness of breath active Cj Rivas Other symptoms involving cardiovascular system completed - Sanya Moser MD Near syncope active Sanya Moser MD Hyperlipidemia completed - Sanya Moser MD FAMILY HISTORY OF HEART DISEASE active Stanislaw Moser MD Obesity completed - Ojasvi Bc Fatigue active Sanya Moser MD Sleep apnea--using CPAP active Alex Russell i Mixed hyperlipidemia active Sanya Moser MD Elevated blood pressure active Alex Russell i Cardiology examination active Alex Schmidt ENCOUNTERS Date Type Provider Location Encounter Diag nosis - In-person encounter Office Visit Sanya Moser MD [facility] Cardiology examination - In-person encounter Office Visit Sanya Moser MD [facility] - In-person encounter Office Visit Sanya Moser MD [facility] - In-person encounter Office Visit Sanya Moser MD [facility] Sleep apnea--using CPAPElevated blood pressure - In-person encounter Office Visit Sanya Moser MD [facility] - In-person encounter Office Visit Sanya Moser MD [facility] - In-person encounter Office Visit Sanya Moser MD [facility] Obesity - In-person encounter Office Visit Sanya Moser MD [facility] HyperlipidemiaMixed hyperlipidemia - In-person encounter Office Visit Sanya Moser MD [facility] - In-person encounter Office Visit Sanya Moser MD [facility] Sleep apnea--using CPAP - In-person encounter Office Visit Dedrick Elizondo MD [facility] - In-person encounter Office Visit Sanya Moser MD [facility] Other symptoms involving cardiovascular systemNear syncopeFAMILY HISTORY OF HEART DISEASEFatigue VITAL SIGNS Date Observation Value Provider Body Mass Index (Ratio) 26.46 kg/m2 Will xena Zambrano blood pressure, diastolic 72 mm[Hg] Laura Payne blood pressure, systolic 111 mm[Hg] Allyn Payne oxygen saturation, oximetry 97 % Whitney Payne pulse rate 77 /min Whitney Payne respiratory rate E&M 12 /min Whitney Payne weight E&M 159 [lb_av] Whitney Payne height E&M 65 [in_i] Whitney Payne blood pressure, cuff size regular An elvia Payne Body Mass Index (Ratio) 26.96 kg/m2 Rod García blood pressure, diastolic 62 mm[Hg] Ja rret blood pressure, systolic 94 mm[Hg] Jar ret pulse rate 67 /min Get blood pressure, cuff size regular Ja rret respiratory rate E&M 14 /min Get oxygen saturation, oximetry 97 % Get weight E&M 162 [lb_av] Get y height E&M 65 [in_i] Get y Body Mass Index (Ratio) 35.44 kg/m2 Stanislaw Moser MD blood pressure, diastolic 93 mm[Hg] Anita nkLogmarylou blood pressure, systolic 146 mm[Hg] Tisha Urrutiaogmarylou blood pressure, cuff size regular Fa [facility] blood pressure, diastolic 93 mm[Hg] [facility] blood pressure, systolic 146 mm[Hg] [facility] 70 [facility]min [facility] oxygen saturation, oximetry 95 % [facility] respiratory rate E&M 15 /min Mile llanos weight E&M 213 [lb_av] [facility] height E&M 65 [in_i] [place] Body Mass Index (Ratio) 35.11 kg/m2 Stanislaw Moser MD blood pressure, diastolic 91 mm[Hg] Li nkLogmarylou blood pressure, systolic 151 mm[Hg] Tisha kLogic blood pressure, diastolic 91 mm[Hg] St saeid Pringle blood pressure, systolic 151 mm[Hg] Taylor ocampo Pino oxygen saturation, oximetry 96 % Lisa Pino pulse rate 73 /min Lisa Pino respiratory rate E&M 16 /min Lisa Bharathi monroy weight E&M 211 [lb_av] Lisa Pino height E&M 65 [in_i] Lisa Pino Body Mass Index (Ratio) 34.78 kg/m2 Stanislaw Moser MD blood pressure, cuff size large Radha barillas [place] blood pressure, diastolic 60 mm[Hg] Radha barillas [place] blood pressure, systolic 122 mm[Hg] [facility] annalee [place] oxygen saturation, oximetry 95 % Hoa Richardson respiratory rate E&M 16 /min Hailey haynes Richardson pulse rate 79 /min Hoa mtz weight E&M 209 [lb_av] Hoa mtz height E&M 65 [in_i] Hoa mtz Body Mass Index (Ratio) 31.68 kg/m2 Stanislaw Moser MD blood pressure, cuff size large Tr mariano Goodson blood pressure, diastolic 70 mm[Hg] Tr mariano Goodson blood pressure, systolic 110 mm[Hg] Michael Goodson oxygen saturation, oximetry 98 % Deven Goodson respiratory rate E&M 16 /min Trynett Goodson pulse rate 61 /min Michaelnett Goodson weight E&M 190.4 [lb_av] Deven zarco height E&M 65 [in_i] Deven Goodson Body Mass Index (Ratio) 29.78 kg/m2 Stanislaw Moser MD blood pressure, cuff size large Benny Diggs blood pressure, diastolic 82 mm[Hg] Ke ivory Diggs blood pressure, systolic 142 mm[Hg] Doug ri Gruenenfelder oxygen saturation, oximetry 96 % Sana Gruenenfelder respiratory rate E&M 16 /min Sana G ruenenfelder pulse rate 71 /min Sana Gruenenfe lder weight E&M 179 [lb_av] Sana Gruenenfe lder height E&M 65 [in_i] Sana Grdacianenfe lder Body Mass Index (Ratio) 33.61 kg/m2 Stanislaw Moser MD blood pressure, cuff size large Ke rri Gruenenfelder blood pressure, diastolic 72 mm[Hg] Ke rri Gruenenfelder blood pressure, systolic 122 mm[Hg] Doug sue Alejouenenfelder oxygen saturation, oximetry 94 % Sana Sudhirnenfelder respiratory rate E&M 16 /min Sana G miriamenenfelder pulse rate 72 /min Sana Sudhrinenfe er weight E&M 202 [lb_av] Sana Lavernnfe er height E&M 65 [in_i] Sana Sudhirneиринаe er Body Mass Index (Ratio) 35.11 kg/m2 Stanislaw Moser MD blood pressure, diastolic 78 mm[Hg] Da alphonse Berenice blood pressure, systolic 116 mm[Hg] Dac ia Berenice oxygen saturation, oximetry 95 % Roselia Berenice respiratory rate E&M 16 /min Roselia V oss pulse rate 71 /min Roselia Berenice weight E&M 211 [lb_av] Roselia Berenice height E&M 65 [in_i] Roselia Berenice Body Mass Index (Ratio) 34.94 kg/m2 Stanislaw Moser MD blood pressure, diastolic 71 mm[Hg] Prosper Chapa blood pressure, systolic 109 mm[Hg] Alona Chapa oxygen saturation, oximetry 97 % Kari Chapa respiratory rate E&M 18 /min Js Chapa pulse rate 69 /min Kari tineo weight E&M 210 [lb_av] Kari tineo height E&M 65 [in_i] Kari tineo blood pressure, diastolic 79 mm[Hg] Prosper Chapa blood pressure, systolic 122 mm[Hg] Alona Chapa pulse rate 67 /min Kari tineo oxygen saturation, oximetry 97 % Kari Chapa respiratory rate E&M 16 /min Js Chapa Body Mass Index (Ratio) 33.74 kg/m2 Dede Chapa weight E&M 202.8 [lb_av] Kari parisi blood pressure, diastolic 77 mm[Hg] Prosper Chapa blood pressure, systolic 132 mm[Hg] Alona Chapa pulse rate 67 /min Kari tineo oxygen saturation, oximetry 97 % Kari Chapa respiratory rate E&M 16 /min Js Chapa Body Mass Index (Ratio) 32.18 kg/m2 Dede Chapa weight E&M 193.4 [lb_av] Kari parisi height E&M 65 [in_i] Kari tineo ALLERGIES Allergy Name Onset Date Reaction Criticality Status ATILIO High Criticality active RESULTS Date Observation Value Provider Reference Range Interpretation Location cholesterol, non-HDL, total 89 MG/DL (CALC) [facility] <130 Normal cholesterol/HDL ratio, serum, percent 3.2 (calc) [facility] <5.0 Normal LDL cholesterol, serum 69 MG/DL (CALC) [facility] Normal triglyceride, serum, fasting 123 mg/dL [facility] <150 Normal HDL cholesterol, serum 40 mg/dL [facility] > OR = 50 Low cholesterol, serum 129 mg/dL [facility] <200 Normal ferritin, serum 9 ng/mL [facility] 15-150 Low iron saturation percent, serum 15 % [facility] 15-55 iron, serum 57 ug/dL [facility] 27-159 iron binding capacity, unsaturated 319 ug/dL [facility] [phone]/11/ 17 iron binding capacity, total 376 ug/dL [facility] [phone]/11/ 17 basophil count, absolute 0.1 x10E3/uL [facility] 0.0-0.2 Eosinophil Absolute Count 0.2 X10E3/UL [facility] 0.0-0.4 monocyte count, blood, automated 0.5 X10E3/UL [facility] 0.1-0.9 lymphocyte count, blood, automated 1.8 X10E3/UL [facility] 0.7-3.1 Absolute Neutrophils 3.6 X10E3/UL [facility] 1.4-7.0 basophils as percent of blood leukocytes 1 % [facility] Not Estab. eosinophils as percent of blood leukocytes 3 % [facility] Not Estab. monocytes as percent of blood leukocytes 8 % [facility] Not Estab. lymphocytes as percent of blood leukocytes 29 % [facility] Not Estab. neutrophils as percent of blood leukocytes 59 % [facility] Not Estab. platelet count 280 X10E3/UL [facility] [phone]/11/ 17 red blood cell distribution width 16.5 % [facility] 12.3-15.4 High mean corpuscular hemoglobin concentration, RBC 32.7 G/DL [facility] 31.5-35.7 mean corpuscular hemoglobin, RBC 27.4 pg [facility] 26.6-33.0 mean corpuscular volume, RBC 84 fL [facility] 79-97 hematocrit, blood 35.5 % [facility] 34.0-46.6 hemoglobin, blood 11.6 g/dL [facility] 11.1-15.9 erythrocyte (RBC) count 4.23 X10E6/UL [facility] 3.77-5.28 leukocyte count, blood 6.3 X10E3/UL [facility] 3.4-10.8 ferritin, serum 7 ng/mL [facility] 15-150 Low iron saturation percent, serum 11 % [facility] 15-55 Low iron, serum 42 ug/dL [facility] 27-159 iron binding capacity, unsaturated 351 ug/dL [facility] 650-553 0952/03/ 08 iron binding capacity, total 393 ug/dL [facility] 839-920 2891/03/ 08 hemoglobin A1C, blood, as % of total hemoglobin 6.0 % [facility] 4.8-5.6 High lipoprotein, beta, serum, point, quantitative, calculated See report mg/dL [facility] 0-99 very low density lipoproteins See report mg/dL [facility] 5-40 HDL cholesterol, serum 34 mg/dL [facility] >39 Low triglyceride, serum, random 421 mg/dL [facility] 0-149 High cholesterol, serum 201 mg/dL [facility] 100-199 High basophil count, absolute 0.1 x10E3/uL [facility] 0.0-0.2 Eosinophil Absolute Count 0.2 X10E3/UL [facility] 0.0-0.4 monocyte count, blood, automated 0.7 X10E3/UL [facility] 0.1-0.9 lymphocyte count, blood, automated 1.7 X10E3/UL [facility] 0.7-3.1 Absolute Neutrophils 3.3 X10E3/UL [facility] 1.4-7.0 basophils as percent of blood leukocytes 1 % [facility] Not Estab. eosinophils as percent of blood leukocytes 4 % [facility] Not Estab. monocytes as percent of blood leukocytes 11 % [facility] Not Estab. lymphocytes as percent of blood leukocytes 29 % [facility] Not Estab. neutrophils as percent of blood leukocytes 55 % [facility] Not Estab. platelet count 268 X10E3/UL [facility] [phone]/03/ 08 red blood cell distribution width 15.7 % [facility] 12.3-15.4 High mean corpuscular hemoglobin concentration, RBC 32.5 G/DL [facility] 31.5-35.7 mean corpuscular hemoglobin, RBC 26.5 pg [facility] 26.6-33.0 Low mean corpuscular volume, RBC 82 fL [facility] 79-97 hematocrit, blood 34.2 % [facility] 34.0-46.6 hemoglobin, blood 11.1 g/dL [facility] 11.1-15.9 erythrocyte (RBC) count 4.19 X10E6/UL [facility] 3.77-5.28 leukocyte count, blood 6.0 X10E3/UL [facility] 3.4-10.8 alanine aminotransferase (SGPT), serum 34 1/L [facility] 0-32 High aspartate aminotransferase (SGOT), serum 20 1/L [facility] 0-40 alkaline phosphatase, serum 73 1/L [facility] 39-117 bilirubin, serum, total <0.2 mg/dL [facility] 0.0-1.2 albumin/globulin ratio, serum 1.7 [facility] 1.2-2.2 globulin, serum 2.5 [facility] 1.5-4.5 albumin, serum 4.2 g/dL [facility] 3.6-4.8 protein, total, serum 6.7 g/dL [facility] 6.0-8.5 calcium, serum 9.3 mg/dL [facility] 8.7-10.3 carbon dioxide, venous blood 24 mmol/L [facility] 18-29 chloride, serum 104 mmol/L [facility] 96-106 potassium, serum 4.3 mmol/L [facility] 3.5-5.2 sodium, serum 143 mmol/L [facility] 344-536 8161/03/ 08 urea nitrogen/creatinine ratio, serum 17 [facility] 12-28 eGFR if 99 mL/min/{1. 73_m2} [facility] >59 eGFR if not 86 mL/min/{1. 73_m2} [facility] >59 creatinine, serum 0.76 mg/dL [facility] 0.57-1.00 urea nitrogen, blood 13 mg/dL [facility] 8-27 blood glucose, random 95 mg/dL [facility] 65-99 red blood cell distribution width, size [facility] [facility] granulocytes, percentage of total cells, blood 0.5 % [facility] - nucleated red blood cells as percent of blood leukocytes 0.0 % [facility] - red blood cell (erythrocyte) count, per high power field 0.0 10*3/UL [facility] - eosinophils as percent of blood leukocytes 3.9 % [facility] - neutrophils as percent of blood leukocytes 58.6 % [facility] - Absolute Neutrophils 3.7 CELLS/UL [facility] 1.5 - 7.8 basophils as percent of blood leukocytes 0.8 % [facility] - Absolute Basophils 0.1 CELLS/UL [facility] 0.0 - 0.2 monocytes as percent of blood leukocytes 11.4 % [facility] - Absolute Monocytes 0.7 CELLS/UL [facility] 0.2 - 1.0 lymphocytes as percent of blood leukocytes 24.8 % [facility] - Absolute Lymphocytes 1.6 CELLS/UL [facility] 0.9 - 3.9 mean platelet volume 10.3 (?) [facility] - platelet count 293.0 THOUSAND/U L [facility] 100.0 - 400.0 mean corpuscular hemoglobin concentration, RBC 29.9 G/DL [facility] 31.0 - 38.0 Low mean corpuscular hemoglobin, RBC 24.6 pg [facility] 25.0 - 35.0 Low mean corpuscular volume, RBC 82.5 fL [facility] 75.0 - 100.0 hematocrit, blood 34.8 % [facility] 35.0 - 55.0 Low hemoglobin, blood 10.4 g/dL [facility] 11.5 - 16.5 Low erythrocyte count, whole blood 4.2 MILLION/UL [facility] 3.5 - 5.5 hemoglobin A1C, blood, as % of total hemoglobin 5.7 % [facility] 4.0 - 6.0 free thyroxine index 6.8 ??g/dL [facility] 4.4 - 11.4 triiodothyronine uptake 1.0 TBI [facility] 0.8 - 1.3 thyroxine, serum, total 6.8 ??G/DL [facility] 4.5 - 11.7 thyroid stimulating hormone, serum 3.430 ?IU/ML [facility] 0.270 - 4.200 very low density lipoproteins 36.8 mg/dL [facility] 5.0 - 40.0 LDL/HDL (low-density lipoprotein/high-den sity lipoprotein) ratio 2.7 RATIO [facility] - HDL cholesterol, serum 42.0 mg/dL [facility] 45.0 - 65.0 Low cholesterol, serum 194.0 mg/dL [facility] 0.0 - 200.0 Triglycerides-direct 184.0 mg/dL [facility] 0.0 - 150.0 High anion gap, serum 14.1 [facility] - albumin/globulin ratio, serum 2.9 g/dL [facility] 1.1 - 2.5 High globulin, serum 2.8 [facility] 2.3 - 3.8 urea nitrogen/creatinine ratio, serum 15.6 [facility] - Estimated Glomerular Filtration Rate (calc) 68.6 (?) [facility] 59.0 - chloride, serum 102.9 mmol/L [facility] 98.0 - 107.0 potassium, serum 4.3 mmol/L [facility] 3.5 - 5.1 sodium, serum 144.0 mmol/L [facility] 136.0 - 145.0 creatinine, serum 0.9 mg/dL [facility] 0.5 - 0.9 carbon dioxide, venous blood 27.0 mmol/L [facility] 22.0 - 29.0 albumin, serum 4.6 g/dL [facility] 3.5 - 5.2 calcium, serum 9.6 mg/dL [facility] 8.6 - 10.2 aspartate aminotransferase (SGOT), serum 18.0 1/L [facility] 0.0 - 32.0 alkaline phosphatase, serum 77.0 1/L [facility] 40.0 - 130.0 alanine aminotransferase (SGPT), serum 19.0 1/L [facility] 0.0 - 33.0 protein, total, serum 7.4 g/dL [facility] 6.6 - 8.7 urea nitrogen, blood 14.0 mg/dL [facility] 6.0 - 20.0 Glucose Urine 86.0 mg/dL [facility] 74.0 - 99.0 bilirubin, serum, total 0.2 mg/dL [facility] 0.0 - 1.2 HISTORY OF MEDICATION USE Medication Status Instructions Dates Provider Indications Com ments metoprolol succinate 25 mg tablet extended release 24 hr completed TAKE 1 TABLET BY MOUTH ONCE DAILY 06/24 - 12/20 Sanya Moser MD Mounjaro 5 mg/0.5 mL pen injector active Inject 1 pen injector subcutaneously once a week Alex Schmidt Diabetes mellitus, type 2 Mounjaro 2.5 mg/0.5 mL pen injector completed Inject 2 1/2 pen injector subcutaneously once a week 02/19 - 02/25 Mervat Walters Mounjaro 2.5 mg/0.5 mL pen injector completed INJECT 2.5 MG UNDER THE SKIN ONE DAY A WEEK FOR 4 WEEKS, IF TOLERTED WILL INCREASE DOSAGE 12/04 - 02/19 Sana Diggs Mounjaro 2.5 mg/0.5 mL pen injector completed Inject 1 pen injector subcutaneously once a week for 4 weeks, if tolerated will increase dosage. 01/05 - 12/04 Sana Diggs Toprol XL 25 mg tablet extended release 24 hr completed Take 1 tablet by mouth once a day - 05/10 Alex Schmidt meloxicam 15 mg tablet completed - 12/20 Alex Schmidt atorvastatin 80 mg tablet active TAKE 1 TABLET DAILY 04/17 Mehreen Preciado Vascepa 1 gram capsule completed TAKE 2 CAPSULES ONCE A DAY 02/21 - 12/20 Alex Schmidt atorvastatin 80 mg tablet completed 1 tablet once a day 04/10 - 04/17 Manjit Key TO REPLACE PRAVASTATIN ASPIRIN 81 81 MG ORAL TABLET DELAYED RELEASE active 1 tablet by mouth once a day 12/12 Carlos Dean ATORVASTATIN CALCIUM 80 MG ORAL TABLET completed one tab daily 11/28 - 04/10 Sanya Moser MD Vascepa 1 gram capsule completed Take 2 capsule twice a day 01/26 - 02/21 Alex Schmidt diclofenac sodium 75 mg tablet,delayed release (DR/EC) completed once a day - 05/13 Hoa Richardson levothyroxine 125 mcg tablet active 1 tablet once a day Kari Chapa PRAVASTATIN SODIUM 40 MG ORAL TABLET completed ONE TAB. 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 Sanya Moser MD social history reviewed E&M revi ewed - no changes required Sanya Moser MD passive cigarette sm levy exposure no Sana Caterina smoking status Never smoker Sana henry number of grandchildren Sanya Moser MD T hali Moser MD social history reviewed E&M revi ewed - no changes required Sanya Moser MD alcohol use no Roselia Berenice passive cigarette sm levy exposure no Roselia Berenice smoking status Never smoker Roselia Berenice social history reviewed E&M revi ewed - no changes required Sanya Moser MD alcohol use no Kari tineo passive cigarette sm levy exposure no Kari Chapa smoking status Never smoker Kari Diaz alcohol use no Dedrick Mtz passive cigarette sm levy exposure no Dedrick Elizondo MD social history E&M Marital Statu s: C hildren: 2 O ccupation: dat Elizondo MD social history reviewed E&M revi ewed - no changes required Dedrick Elizondo MD smoking status Never smoker Kari Diaz social history reviewed E&M revi ewed - no changes required Sanya Moser MD smoking status Never smoker Kari Diaz FUNCTIONAL STATUS Date Observation Value Provider HRA, CV Assess/Plan, Angina (inactive) Management Plan continue current therapy Alex Ahmedzai HRA, CV Assess/Plan, Angina (inactive) Management Plan continue current therapy Alex Ahmedzai HRA, CV Assess/Plan, Angina (inactive) Management Plan continue current therapy Alex Ahmedzai HRA, CV Assess/Plan, Angina (inactive) Management Plan continue current therapy Alex Ahmedzai HRA, CV Assess/Plan, Angina (inactive) Management Plan continue current therapy Alex Ahmedzai HRA, CV Assess/Plan, Angina (inactive) Management Plan continue current therapy Sanya Moser MD HRA, CV Assess/Plan, Angina (inactive) Management Plan continue current therapy James Yancey FAMILY HISTORY Family Member Condition Father Family History of Co ronary Artery Disease: Mother Family History of Co ronary Artery Disease: INSURANCE PROVIDERS Payer name Policy type / Coverage type [place] red democrat ID [employer] MED[employer]ARE [employer]ANTAGE [address] (HMO POS) Medicare [id number] ADVANCE DIRECTIVES Name Date DISCUSSED - NO DECISION MADE TREATMENT PLAN Date Name Performer [id number],S, Alex Ahmedza i [id number],S, Alex Ahmedza i [id number],S, Alex Ahmedza i [id number],S, Alex Ahmedza i [id number],S, Alex Ahmedza i [id number],B, Alex Ahmedza i [id number],S, Alex Ahmedza i [id number],S, Alex Ahmedza i [id number],S, Alex Arisko i [id number],S, Alex Russell i [id number],B, Sanya Moser MD [id number],B, Sanya Moser MD [id number],B, Sanya Moser MD [id number],S, Sanya Moser MD [id number],S, Sanya Moser MD Cardiology: T he following medications were removed from the medication list: Vascepa 1 Gram Capsule (Icosapent ethyl) ..... Take 2 capsules once a day Her updated medication list for this problem includes: Atorvastatin 80 Mg Tablet (Atorvastatin) ..... Take 1 tablet daily Orders: L IPID PANEL (760) Sanya Moser MD Cardiology: T he following medications were removed from the medication list: Metoprolol Succinate 25 Mg Tablet Extended Release 24 Hr (Metoprolol succinate) ..... Take 1 tablet by mouth once daily Sanya Moser MD Cardiology Sanya Moser MD Cardiology:This visi t has been a part of the consistent, comprehensive, and ongoing management of the chronic medical condition(s) listed above for the patient. The following medications were removed from the medication list: Metoprolol Succinate 25 Mg Tablet Extended Release 24 Hr (Metoprolol succinate) ..... Take 1 tablet by mouth once daily Sanya Moser MD Cardiology: H er updated medication list for this problem includes: Mounjaro 5 Mg/0.5 Ml Pen Injector (Tirzepatide) ..... Inject 1 pen injector subcutaneously once a week Sanya Moser MD Cardiology Alex Schmidt Cardiology Alex Schmidt Cardiology Alex Schmidt Cardiology Alex Schmidt Cardiology: H er updated medication list for this problem includes: Mounjaro 5 Mg/0.5 Ml Pen Injector (Tirzepatide) ..... Inject 1 pen injector subcutaneously once a week Alex Ahmedzai Cardiology Alex Ahmedzai Telehealth Alex Ahmedzai Telehealth Alex Ahmedzai Telehealth Alex Ahmedzai Telehealth Alex Ahmedzai Telehealth Alex Ahmedzai Telehealth Alex Ahmedzai Telehealth Alex Ahmedzai Cardiology Alex Ahmedzai Cardiology Alex Ahmedzai Cardiology Alex Ahmedzai Cardiology Alex Ahmedzai Cardiology Alex Ahmedzai Cardiology Alex Ahmedzai Cardiology Alex Ahmedzai Cardiology Alex Ahmedzai Cardiology Alex Ahmedzai Cardiology Alex Ahmedzai Cardiology Alex Ahmedzai Cardiology Alex Ahmedzai Cardiology Alex Ahmedzai Cardiology Alex Ahmedzai Cardiology Alex Ahmedzai Cardiology Alex Ahmedzai Cardiology Alex Ahmedzai Cardiology Sanya Moser MD Cardiology Sanya Moser MD Cardiology Sanya Moser MD Cardiology Sanya Moser MD Cardiology Sanya Moser MD Cardiology Follow up James Owens r Cardiology Follow up James Owens r Cardiology Follow up Okenyonschad Owens r Cardiology Follow up Okenyonschad Owens r Cardiology Follow up Obernardino Pawa r Cardiology Follow up Obernardino Pawa r Cardiology Follow up Okenyonschad Pawa r Telehealth, please fax Rx for li pid panel in March Telehealth, please fax Rx for li pid panel in March [place] [facility], please fax Rx for li pid panel in March Telehealth, please fax Rx for li pid panel in March [facility] Telehealth, please fax Rx for li pid panel in March Cardiology Follow up Sanya kay MD Cardiology Follow up Sanya kay MD Cardiology Follow up Sanya kay MD Cardiology Follow up Sanya kay MD Cardiology follow up Sanya kay MD Cardiology follow up Sanya kay MD Cardiology follow up Sanya kay MD Cardiology follow up Sanya kay MD Cardiology follow up Sanya kay MD Cardiology Sanya Moser MD Cardiology Sanya Moser MD Cardiology Sanya Moser MD Cardiology Sanya Moser MD Cardiology Dedrick Elizondo MD Cardiology Dedrick Elizondo MD Cardiology Dedrick Elizondo MD Cardiology Dedrick Elizondo MD Cardiology Sanya Moser MD Cardiology Sanya Moser MD Cardiology Sanya Moser MD Date Name LIPID PANEL HEMOGLOBIN A1c RPM (remote patient monitoring) LIPID PANEL CT, Coronary Calcium Score IRON AND TOTAL IRON BINDING CAPACITY FERRITIN CBC (INCLUDES DIFF/P LT) TSH, 3RD GENERATION W/REFLEX TO FT4 HEMOGLOBIN A1c IRON AND TOTAL IRON BINDING CAPACITY FERRITIN CBC (INCLUDES DIFF/P LT) LIPID PANEL COMPREHENSIVE METABO LIC PANEL, W/EGFR HEMOGLOBIN A1c THYROID PANEL WITH T SH, 3RD GENERATION CBC (INCLUDES DIFF/P LT) LIPID PANEL COMPREHENSIVE METABO LIC PANEL W/EGFR HISTORY OF PROCEDURES Procedure Date Procedure Name Provider Procedure Notes S tatus Complex e/m visit add on Sanya Moser MD completed EKG Sanya Moser MD completed Complex e/m visit add on Sanya Moser MD completed EKG Sanya Moser MD completed CT- Coronary CA score Sanya Moser MD completed EKG Sanya Moser MD completed SNOMED-CT: 951289747172523 Current Medications Documented Sanya Moser MD completed BLOOD COUNT HEMOGLOBIN Sanya Moser MD completed FVC - 03002 Sanya Moser MD complete d FRC - 64319 Sanya Moser MD complete d DLCO - 05151 Sanya Moser MD complet ed SNOMED-CT: 80327282 Physical Exam, Performed: Pulse Exam of Foot Sanya Moser MD completed EKG Sanya Moser MD completed SNOMED-CT: 484415124338444 Current Medications Documented Sanya Moser MD completed SNOMED-CT: 086556304371047 Current Medications Documented Dedrick Elizondo MD completed Event Monitor Caitlyn zarco MD completed Stress EKG Becca Mason MD compl eted Cardiolite, 2 units Sanya Moser MD completed SPECT Images Becca Mason MD com pleted SNOMED-CT: 216027071817774 Current Medications Documented Sanya Moser MD completed EKG Sanya Moser MD completed
--- OUTSIDE RECORDS SUMMARY | 2025-02-07 13:51 | XMS_ITS | Patient Health Record ---
Author Organization [facility] Address [address] [place] [address] Care Team Providers Care Electric Power Machine Operator Name Role Phone Jose Carlos Ha Primary [...] 30 day(s) Active Vitamin D3 1.25 MG (88437 UT) TK 1 C PO ONCE A [...] Status W/U Status Risk Notes Problem Wheezing (19713390) Wheezing (R06.2) Active confirmed Problem Eruption of skin (553657808) Rash and other nonspecific skin eruption (R21) Active confirmed Problem Chronic allergic conjunctivitis (54749195) Other chronic allergic conjunctivitis (H10.45) Active confirmed Problem Allergic rhinitis (17523492) Other allergic rhinitis (J30.89) Active confirmed Problem Allergic contact dermatitis caused by chemical (5656966546483242 3) Allergic contact dermatitis due to other chemical products (L23.5) Active confirmed Encounters Encounter Location Date Provider Diagnosis [address] [address] 05/01/2024 Provider ZZ-Migration Plan Of Treatment No Information Insurance Providers Payer Name Payer Address Payer Phone Subscriber Number Group Number Insured Name Patient Relationship to Insured Coverage Start Date Coverage End Date [facility] [address] [place] [address] [id number] Elizabeth Sierra Self - patient is the insured Medical (General) History Medical History History ICD Code Vitamin D deficiency, unspecified E55.9 Hyperlipidemia, unspecified E78.5 Gastro-esophageal reflux disease without esophagitis K21.9 Hypothyroidism, unspecified E03.9 Surgical History Surgery Date(Month/Year) Tonsillectomy 11/17/1972 Broken jaw 04/17/1982 Carpal tunnel-right 08/2018 Carpal tunnel-left 11/2018
--- OUTSIDE RECORDS SUMMARY | 2025-02-07 13:51 | XMS_ITS | Referral Summary ---
Author Organization [facility] Address [address] [place] [address] Care Team Providers Care Surg Rn Name Role Phone Jose Carlos Ha DO Primary Care Provider +1- [phone] Allergies Active Allergy Reactions Criticality Noted Date Comments Aloe-Lact Ac-Ceramide 3,3b,6,1 Shortness of breath High 02/16/2023 Social History Tobacco Use Types Packs/Day Years Used Date Smoking Tobacco: Never Assessed Personal Safety Answer Date Recorded Getting School Help Needed Not on file 02/21 Comments Unknown Sex and Gender Information Value Date Recorded Sex Assigned at Not on file Legal Sex Female 1:02 AM RUG SIZER Gender Identity Not on file Sexual Orientation Not on file Last Filed Vital Signs Vital Sign Reading Time Taken Comments Blood Pressure 144/83 02/16/2023 8:51 PM CDT Pulse 63 02/16/2023 8:51 PM CDT Temperature 36.8 C (98.3 F) 02/16/2023 4:47 PM CDT Respiratory Rate 18 02/16/2023 8:51 PM CDT Oxygen Saturation 94% 02/16/2023 8:51 PM CDT Inhaled Oxygen Concentration - - Weight 95 kg (209 lb 7 oz) 02/16/2023 4:47 PM CD T Height - - Body Mass Index - - Plan of Treatment Not on file Procedures Procedure Name Priority Date/Time Associated Diagnosis Comments SCREENING MAMMOGRAM W KELTON Routine 09/21/2014 11:10 AM RUG SIZER from Last 3 Months or Most Recently Relevant to Health Maintenance Results * Screening Mammogram W Kelton (09/21/2014 11:10 AM RUG SIZER) Anatomical Region Laterality Modality Breast N/A Mammography 09/21/2014 11:1 0 AM RUG SIZER Narrative 09/21/2014 4:19 PM RUG SIZER FLAQUITA JOSHUA M.D. FINAL REPORT ACC# Date Time Exam [id number] Sep 21, 2014 11:10:00 [facility] [id number] Diag Mammogram Bilateral Technologist(s): Naa Collins; ; [id number] Sep 21, 2014 11:10:00 [facility] [id number] Bilateral Tomosynthesis Technologist(s): Naa Collins; ; EXAMINATION: BILATERAL UNILATERAL FULL FIELD DIGITAL DIAGNOSTIC MAMMOGRAM AND DIGITAL BILATERAL BREAST TOMOSYNTHESIS HISTORY: Abnormal screening mammogram. Recent screening mammogram demonstrated ossification in the central and anterior portions of both breasts.. TECHNIQUE: Additional views of the both breasts were obtained utilizing full field digital mammography. Digital breast tomosynthesis was also performed and reviewed as a part of this examination. COMPARISON: 02/23/2012 BREAST PARENCHYMAL COMPOSITION: The breasts are heterogeneously dense, which may obscure small masses. FINDINGS: Additional imaging reveals scattered punctate calcifications bilaterally with no associated mass, architectural distortion, or suspicious moderate calcifications. IMPRESSION: Bilateral diffuse punctate calcifications with no associated suspicious findings . OVERALL FINAL ASSESSMENT: BI-RADS Category 2: Benign finding. Requested By: Dictated By: FLAQUITA JOSHUA M.D. on Sep 21 2014 4:19P This document has been electronically signed by: FLAQUITA JOSHUA M.D. on Sep 21 2014 4:19P Procedure Note Provider, MD Arley - 03/19/2017 FLAQUITA JOSHUA M.D. FINAL REPORT ACC# Date Time Exam [id number] Sep 21, 2014 11:10:00 [facility] [id number] Diag Mammogram Bilateral Technologist(s): Naa Collins; ; [id number] Sep 21, 2014 11:10:00 [facility] [id number] Bilateral Tomosynthesis Technologist(s): Naa Collins; ; EXAMINATION: BILATERAL UNILATERAL FULL FIELD DIGITAL DIAGNOSTIC MAMMOGRAM AND DIGITAL BILATERAL BREAST TOMOSYNTHESIS HISTORY: Abnormal screening mammogram. Recent screening mammogram demonstrated ossification in the central and anterior portions of both breasts.. TECHNIQUE: Additional views of the both breasts were obtained utilizing full field digital mammography. Digital breast tomosynthesis was also performed and reviewed as a part of this examination. COMPARISON: 02/23/2012 BREAST PARENCHYMAL COMPOSITION: The breasts are heterogeneously dense, which may obscure small masses. FINDINGS: Additional imaging reveals scattered punctate calcifications bilaterally with no associated mass, architectural distortion, or suspicious moderate calcifications. IMPRESSION: Bilateral diffuse punctate calcifications with no associated suspicious findings . OVERALL FINAL ASSESSMENT: BI-RADS Category 2: Benign finding. Requested By: Dictated By: FLAQUITA JOSHUA M.D. on Sep 21 2014 4:19P This document has been electronically signed by: FLAQUTIA JOSHUA M.D. on Sep 21 2014 4:19P Historical Provider MD COPE MAMMO PROCEDURES Mackenzie l Result from Last 3 Months or Most Recently Relevant to Health Maintenance Insurance [facility] MEDICARE ADVANTAGE [facility] MEDICARE ADVANTAGE MRA Care Teams Surg Rn Relationship Specialty Start Date End Date Jose Carlos Ha DO PCP - General Internal Medicine 02/16/23
--- OUTSIDE RECORDS SUMMARY | 2025-02-07 13:51 | XMS_ITS | Clinical Summary ---
Author Organization [facility] Address [address] [place] [address] Care Team Providers Care Data Collector Name Role Phone Jose Carlos Ha DO Primary Care Provider +1- [phone] Allergies Active Allergy Reactions Criticality Noted Date Comments Aloe-Lact Ac-Ceramide 3,3b,6,1 Shortness of breath High 02/16/2023 Social History Tobacco Use Types Packs/Day Years Used Date Smoking Tobacco: Never Assessed Personal Safety Answer Date Recorded Getting School Help Needed Not on file 02/21 Comments Unknown Sex and Gender Information Value Date Recorded Sex Assigned at Not on file Legal Sex Female 1:02 AM COMMERCIAL LOAN ANALYST Gender Identity Not on file Sexual Orientation [...] Mass Index - - Plan of Treatment Health Maintenance Due Date Last Done Comments Colon Cancer Screening-Colonoscopy 1955 Depression Screening 1955 Fall Risk Assessment 1955 Hepatitis C Screening 1955 Osteoporosis Screening-Bone Density Scan 1955 Hepatitis B Screening 1975 Breast Cancer Screening-Mammogram 09/21/2015 014 Pneumococcal vaccine 65+ (2 of 2 - PPSV23) 08/25/2021 08/25/2020 Well Visit 65+ 2022 Covid-19 Vaccine (6 2023-2 5 season) 2024 10/15/2022, 03/14/2022, 09/09/2021, Additional history exists Influenza Vaccine (#1) 2024 , 09/09/2021, 08/25/2020 DTaP/Tdap/Td Vaccine (2 - Td or Tdap) 04/10/2032 04/10/2022 Zoster Vaccine Completed 11/07/2020, 08/25/2020 Procedures Procedure Name Priority Date/Time Associated Diagnosis Comments SCREENING MAMMOGRAM W KELTON Routine 09/21/2014 11:10 AM COMMERCIAL LOAN ANALYST from Last 3 Months or Most Recently Relevant to Health Maintenance Results * Screening Mammogram W Kelton (09/21/2014 11:10 AM COMMERCIAL LOAN ANALYST) Anatomical Region Laterality Modality Breast N/A Mammography 09/21/2014 11:1 0 AM COMMERCIAL LOAN ANALYST Narrative 09/21/2014 4:19 PM COMMERCIAL LOAN ANALYST FLAQUITA JOSHUA M.D. FINAL REPORT ACC# Date Time Exam [id number] Sep 21, 2014 11:10:00 [facility] [id number] Diag Mammogram Bilateral Technologist(s): Naa Collins; ; [id number] Sep 21, 2014 11:10:00 [facility] [id number] Bilateral Tomosynthesis Technologist(s): Naa Collins; ; EXAMINATION: [...] Sep 21 2014 4:19P Procedure Note Provider, Arley, - 03/19/2017 FLAQUITA JOSHUA M.D. FINAL REPORT ACC# Date Time Exam [id number] Sep 21, 2014 11:10:00 [facility] [id number] Diag Mammogram Bilateral Technologist(s): Naa Collins; ; [id number] Sep 21, 2014 11:10:00 [facility] [id number] Bilateral Tomosynthesis Technologist(s): Naa Collins; ; EXAMINATION: [...] Most Recently Relevant to Health Maintenance Insurance [facility] MEDICARE ADVANTAGE [facility] MEDICARE ADVANTAGE Member Subscriber Plan / Payer (Ef fective 2022-Present) Name:Elizabeth Sierra Relation to Subscriber:Self Name:Elizabeth Sierra Payer ID:[id number] (NAIC) Type:[facility] MEDIC[facility] Address: [place] [id number] [place] [phone] MRA Care Teams Data Collector Relationship Specialty Start Date End Date Jose Carlos Ha DO PCP - General Internal Medicine 02/16/23
--- OUTSIDE RECORDS SUMMARY | 2025-02-07 13:51 | XMS_ITS ---
Author Organization [facility] Address [address] [place] [address] Care Team Providers Care Shredder Tender Name Role Phone Jose Carlos Ha Primary Care Provider Unavailab le ZZ-Migration, Provider Unavailable Unavailab le Allergies Allergen (clinical drug ingredient) Drug/Non Drug Allergy documented on EMR Reaction Allergy Type Onset Date Status Aloe Dry skin/upper respiratory infection Drug Allergy Active REASON FOR VISIT [facility] Conversion Encounter Medications Medication SIG (Take, Route, Frequency, Duration) Notes Start Date End Date Status Omeprazole 40 MG 1 cap(s) orally once [...] 30 day(s) Active Vitamin D3 1.25 MG (96888 UT) TK 1 C PO ONCE A WEEK FOR 8 WEEKS for 56 Active Ventolin HFA 108 (90 Base) MCG/ACT INHALE 1-2 PUFFS PO Q 4-6 H PRN for 16 Active Encounters Encounter Location Date Provider Diagnosis [facility] [address] [place] [address] 05/01/2024 Provider ZZ-Migration Plan Of Treatment No Information Progress Notes * Varsha SIERRAOB:[birth year] (69 yo F)Acc No.[id number]:05/01/2024 Patient: Elizabeth CALDERÓN Provider: Vic Gambino :1955 A ge:68 Y S ex:Female Date:05/01/2024 Address:[address] [place], [place] [id number] Pcp:Jose Carlos Ha Subjective: * Chief Complaints: * [facility] . [facility] * Medical History: * Medications: T aking Vitamin D3 1.25 MG (40101 UT) Capsule TK 1 C PO ONCE A WEEK FOR 8 WEEKS , Taking Ventolin HFA 108 (90 Base) MCG/ACT Aerosol Solution INHALE 1-2 PUFFS PO Q 4-6 H PRN , Taking Omeprazole 40 MG Capsule Delayed Release 1 cap(s) orally once a day , Taking Diclofenac Sodium 75 MG Tablet Delayed Release 1 tab(s) orally 2 times a day , Taking Pravastatin Sodium 40 MG Tablet 1 tab(s) orally once a day , Taking Levothyroxine Sodium 125 MCG Tablet 1 tab(s) orally once a day , Taking Vascepa 1 GM Capsule 2 cap(s) orally 2 times a day * Allergies: A medardo: Dry skin/upper respiratory infection. Objective: * Vitals: Assessment: Plan: * Treatment: * Billing Information: * Visit Code: * Procedure Codes: * Electronic signature of Prov patricia ZZ-Migration on 02/07/2025 at 01:50 PM CDT Sign off status: Pending * Provider: Vic Gambino Date: 0 05/01/2024 Generated for Watson coffey/Lucia/Julian on: 0 02/07/2025 01:50 PM CDT
[2025-02-07 16:04] LABS: Thyroid Stimulating Hormone 0.494 uIU/mL (0.465-4.680)
[2025-02-07 18:47] LABS: Free T3 3.11 pg/mL (2.45-5.93); Free T4 Free Thyroxine 1.59 ng/dL (0.78-2.19)
== END 2025-02-07 11:54 | disposition home or self-care (01) ==
LOC: ANHGOSHLAB 11:54
PROVIDERS: PCP Family Medicine; Visit Provider Nurse Practitioner
DX: E03.9 Hypothyroidism, unspecified (principal)
CPT/HCPCS: 36415; 84439; 84443; 84481

== ENCOUNTER 2025-02-08 07:58 | Outpatient (CLI) | payer MEDICARE, SELFPAY ==
--- OUTSIDE RECORDS SUMMARY | 2025-02-08 08:09 | XMS_ITS | Continuity of Care Document ---
Author Organization [facility] Address [address] [place] [address] [address] [place] [address] Phone Care Team Providers Care Plant Operations Vice President Name Role Phone Hossein Borges Unavailable Unavailable Procedures Procedure Date Office/outpatient Visit, New Advance Directives Directive Yes / No Effective Date File Name No Information Encounters Encounter Description Practice Location Reason(s) For Visit Diagnoses Date Provider Providers Copied on Encounter Office/outpat ient Visit, [facility], [address] [place] [address] [address], [place], [place], [id number], [place] tel:[phone] SEC [facility] No Information [address] Katerina Catalan. [address] , [address], [place], [address], [place]. tel:[phone] Family History Family Member Type Diagnosis Age At Onset No Information Payers Payer name Insurance type Covered democrat ID Authoriza tion(s) [employer] SOI CI [id number] Social History Type Description Quantity Date Captured [...]
--- OUTSIDE RECORDS SUMMARY | 2025-02-08 08:09 | XMS_ITS | CONTINUITY OF CARE DOCUMENT ---
Author Name sebastian, sebastian Address Unknown Organization [facility] Address [address] [place] [address] Phone [phone] Care Team Providers Care Global Technical Writer Name Role Phone Ehsan ANDRADE, Sanya Unavailable [...] In-person encounter Office Visit Sanya Moser MD [facility] Cardiology examination - In-person encounter Office Visit Sanya Moser MD [facility] - In-person encounter Office Visit Sanya Moser MD [facility] - In-person encounter Office Visit Sanya Moser MD [facility] Sleep apnea--using CPAPElevated blood pressure - In-person encounter Office Visit Sanya Moser MD [facility] - In-person encounter Office Visit Sanya Moser MD [facility] - In-person encounter Office Visit Sanya Moser MD [facility] Obesity - In-person encounter Office Visit Sanya Moser MD [facility] HyperlipidemiaMixed hyperlipidemia - In-person encounter Office Visit Sanya Moser MD [facility] - In-person encounter Office Visit Sanya Moser MD [facility] Sleep apnea--using CPAP - In-person encounter Office Visit Dedrick Elizondo MD [facility] - In-person encounter Office Visit Sanya Moser MD [facility] Other symptoms involving cardiovascular systemNear syncopeFAMILY [...] Urrutiaogmarylou blood pressure, cuff size regular Fa [facility] blood pressure, diastolic 93 mm[Hg] [facility] blood pressure, systolic 146 mm[Hg] [facility] 70 /min [facility] oxygen saturation, oximetry 95 % [facility] respiratory rate E&M 15 /min [facility] llanos weight E&M 213 [lb_av] [facility] height E&M 65 [in_i] [facility] [place] Body Mass Index (Ratio) 35.11 kg/m2 Stanislaw [...] blood pressure, cuff size large Radha barillas [facility] blood pressure, diastolic 60 mm[Hg] Radha barillas [facility] blood pressure, systolic 122 mm[Hg] [facility] annalee [facility] oxygen saturation, oximetry 95 % [facility] [...] G miriamenenfelder pulse rate 72 /min Sana Sudhirnenfe er weight E&M 202 [lb_av] Sana Lavernnfe [...] iron binding capacity, unsaturated 319 ug/dL [facility] [phone]/11/ 17 iron binding capacity, total 376 ug/dL [facility] [phone]/11/ 17 basophil count, absolute 0.1 x10E3/uL [facility] [...] Not Estab. platelet count 280 X10E3/UL [facility] [phone]/11/ 17 red blood cell distribution width 16.5 [...] iron binding capacity, unsaturated 351 ug/dL [facility] [phone]/03/ 08 iron binding capacity, total 393 ug/dL [facility] [phone]/03/ 08 hemoglobin A1C, blood, as % of [...] Not Estab. platelet count 268 X10E3/UL [facility] [phone]/03/ 08 red blood cell distribution width 15.7 [...] [facility] 3.5-5.2 sodium, serum 143 mmol/L [facility] [phone]/03/ 08 urea nitrogen/creatinine ratio, serum 17 [facility] 12-28 eGFR if 99 mL/min/{1. 73_m2} [facility] >59 eGFR if not 86 mL/min/{1. 73_m2} [facility] >59 creatinine, serum 0.76 mg/dL [facility] 0.57-1.00 urea nitrogen, blood 13 mg/dL [facility] 8-27 blood glucose, random 95 mg/dL [facility] 65-99 red blood cell distribution width, size density 51.4 fL [facility] - immature granulocytes, percentage of total cells, blood 0.5 % [facility] - nucleated red blood cells as percent of blood leukocytes 0.0 % [facility] - red blood cell (erythrocyte) count, [...] E&M revi ewed - no changes required aSnya Moser MD smoking status Never smoker [place] [...] Payer name Policy type / Coverage type [place] party ID [employer] MEDICARE ADVANTAGE ST 0 003 (HMO POS) Medicare [id number] ADVANCE DIRECTIVES Name Date DISCUSSED - NO DECISION MADE TREATMENT PLAN Date Name Performer [id number],S, Alex Ahmedza i [id number],S, Alex Ahmedza i [id number],S, Alex Ahmedza i [id number],S, Alex Ahmedza i [id number],S, Alex Ahmedza i [id number],B, Alex Ahmedza i [id number],S, Alex Ahmedza i [id number],S, Alex Ahmedza i [id number],S, Alex Arisko i [id number],S, Alex Russell i [id number],B, Sanya Moser MD [id number],B, Sanya Moser MD [id number],B, Sanya Moser MD [id number],S, Sanya Moser MD [id number],S, Sanya Moser MD Cardiology: T he following medications were removed from the medication list: Vascepa 1 Gram Capsule (Icosapent ethyl) ..... Take 2 capsules once a day Her updated medication list for this problem includes: Atorvastatin 80 Mg Tablet (Atorvastatin) ..... Take 1 tablet daily Orders: L IPID PANEL (7604) Sanya Moser MD Cardiology: T he following [...] up James Owens r Cardiology Follow up Obernardino galarza Cardiology Follow up Obernardino Owens r Cardiology Follow up Ojaschad Michela r Cardiology Follow up James Michela r Cardiology Follow up James Michela r Cardiology Follow up James Michel ar Telehealth, please fax Rx for li pid panel in March Telehealth, please fax Rx for li pid panel in March [facility] Telehealth, please fax Rx for li pid panel in March [facility] Telehealth, please fax Rx for li pid panel in March [facility] Telehealth, please fax Rx for li pid panel in March [facility] Cardiology Follow up Sanya kay MD Cardiology [...] completed EKG Sanya Moser MD completed SNOMED-CT: 536655880285824 Current Medications Documented Sanya Moser MD completed BLOOD COUNT HEMOGLOBIN Sanya Moser MD completed FVC - 73028 Sanya Moser MD complete d FRC - 15697 Sanya Moser MD complete d DLCO - 02827 Sanya Moser MD complet ed SNOMED-CT: 78251440 Physical Exam, Performed: Pulse Exam of Foot Sanya Moser MD completed EKG Sanya Moser MD completed SNOMED-CT: 194607633306830 Current Medications Documented Sanya Moser MD completed SNOMED-CT: 982350167873106 Current Medications Documented Dedrick Elizondo MD completed Event Monitor Caitlyn zarco MD completed Stress EKG Becca Mason MD compl eted Cardiolite, 2 units Sanya Moser MD completed SPECT Images Becca Mason MD com pleted SNOMED-CT: 076942097217895 Current Medications Documented Sanya Moser MD completed EKG Sanya Moser MD completed
--- OUTSIDE RECORDS SUMMARY | 2025-02-08 08:09 | XMS_ITS | Clinical Summary ---
Author Organization [facility] Address [address] [place] [address] Care Team Providers Care Radiator Cleaner Name Role Phone Jose Carlos Ha DO Primary Care Provider +1- [phone] Allergies Active Allergy Reactions Criticality Noted Date Comments Aloe-Lact Ac-Ceramide 3,3b,6,1 Shortness of breath High 02/16/2023 Social History Tobacco Use Types Packs/Day Years Used Date Smoking Tobacco: Never Assessed Personal Safety Answer Date Recorded Getting School Help Needed Not on file 02/21 Comments Unknown Sex and Gender Information Value Date Recorded Sex Assigned at Not on file Legal Sex Female 1:02 AM CRUSHING FOREMAN Gender Identity Not on file Sexual Orientation [...] MAMMOGRAM W KELTON Routine 09/21/2014 11:10 AM CRUSHING FOREMAN from Last 3 Months or Most Recently Relevant to Health Maintenance Results * Screening Mammogram W Kelton (09/21/2014 11:10 AM CRUSHING FOREMAN) Anatomical Region Laterality Modality Breast N/A Mammography 09/21/2014 11:1 0 AM CRUSHING FOREMAN Narrative 09/21/2014 4:19 PM CRUSHING FOREMAN FLAQUITA JOSHUA M.D. FINAL REPORT ACC# Date Time Exam [id number] Sep 21, 2014 11:10:00 [facility] [id number] Diag Mammogram Bilateral Technologist(s): Naa Collins; ; [id number] Sep 21, 2014 11:10:00 [facility] [id number] Bilateral Tomosynthesis Technologist(s): Naa Collins; ; EXAMINATION: [...] M.D. FINAL REPORT ACC# Date Time Exam [id number] Sep 21, 2014 11:10:00 [facility] [id number] Diag Mammogram Bilateral Technologist(s): Naa Collins; ; [id number] Sep 21, 2014 11:10:00 [facility] [id number] Bilateral Tomosynthesis Technologist(s): Naa Collins; ; EXAMINATION: [...] Most Recently Relevant to Health Maintenance Insurance [facility] MEDICARE ADVANTAGE [facility] Address: [address] [address] [facility] MEDICARE ADVANTAGE [facility] Address: [place] [id number] [place] [phone] MRA Care Teams Radiator Cleaner Relationship Specialty Start Date End Date Jose Carlos Ha DO PCP - General Internal Medicine 02/16/23
--- OUTSIDE RECORDS SUMMARY | 2025-02-08 08:09 | XMS_ITS | Clinical Summary ---
Author Organization [facility] Address [address] [place] [address] Care Team Providers Care Decision Support Manager Name Role Phone DuttaMarquita DO Primary Care Provider +1- [phone] [facility],non-owned Affiliates and Associated Physician Practices is amultiple site organization consisting of ambulatory clinics and hospital sitesin [place], [place], [place] and [place]. This disclosure is being madepursuant to the Care Everywhere program and may not contain all information available regarding this patient. Last updated 18.[facility] Allergies Active Allergy Reactions Criticality Noted Date [...] mouth once daily Active Cholecalciferol 1.25 MG (00107 UT) Take 50,000 Units by mouth every [...] Department Care Team Description 12/06/2024 10:00 AM MANAGER BUSINESS MANAGEMENT Office Visit [facility] - [address], [place] [address] Cris Robins, PLANNER-HOME TEACHING GRADES 9 THRU 12 TEACHER Elevated liver enzymes (Primary Dx) 12/06/2024 9:00 AM MANAGER BUSINESS MANAGEMENT Procedure visit [facility] - [address] [place] [address] Gadiel Rose MD Elevated liver enzymes 12/06/2024 [...] Comments Blood Pressure 111/71 12/06/2024 9:26 AM MANAGER BUSINESS MANAGEMENT Pulse 70 12/06/2024 9:26 AM MANAGER BUSINESS MANAGEMENT Temperature 36.8 C (98.3 F) 12/06/2024 9:26 AM MANAGER BUSINESS MANAGEMENT Respiratory Rate 16 09/01/2018 2:49 PM CDT Oxygen Saturation 100% 12/06/2024 9:26 AM MANAGER BUSINESS MANAGEMENT Inhaled Oxygen Concentration - - Weight 71.4 kg (157 lb 6.4 oz) 12/06/2024 9:26 A M MANAGER BUSINESS MANAGEMENT Height 166.4 cm (5' 5.5 ) 12/06/2024 9:26 AM MANAGER BUSINESS MANAGEMENT Body Mass Index 25.79 12/06/2024 9:26 AM MANAGER BUSINESS MANAGEMENT Plan of Treatment Health Maintenance Due Date [...] Management General On track( 025 9:38 AM MANAGER BUSINESS MANAGEMENT) Cammie Rodriguez, RN Note: Expected end date: [...] 12/30/2024 TSH (EXTERNAL RESULT ENTRY) Routine 12/30/2024 TX LIVER ELASTOGRAPHY Routine 12/06/2024 9:11 AM MANAGER BUSINESS MANAGEMENT Elevated liver enzymes from Last 3 Months [...] Provider LAB - CHEMISTRY O RDERABLES * TX LIVER ELASTOGRAPHY (12/06/2024 9:11 AM MANAGER BUSINESS MANAGEMENT) Narrative Gadiel Pardo MD - 12/06/2024 9:11 AM MANAGER BUSINESS MANAGEMENT Gadiel Pardo MD 12/06/2024 9:35 AM Diagnosis: [...] of liver-related events. J Hepatol (2021) 76: 8027-6269. Marley PJ, Jonas M, Lennie M, et al. Accuracy of FibroScan controlled attenuation parameter and liver stiffness measurement in assessing steatosis and fibrosis in patients with nonalcoholic fatty liver disease. Gastroenterology 2019;156:7175-8750. Dwaine ARMANDO, Alena R, Van Natta ML, [...] at-risk nonalcoholic steatohepatitis (WHITAKER) in a [place] cohort and comparison to other non-invasive algorithms. PLoS ONE (2021) 17: f8540484. Mildred DOWELL, Jerrell Morales, Julio César ZM, et al. Enhanced diagnosis of advanced fibrosis and cirrhosis in individuals with NAFLD using FibroScan-based Agile scores. J Hepatol (2022) 78: 247-259. Tisha et al. Vibration-controlled transient elastography scores to predict liver-related events in steatotic liver disease. KRYSTAL (2024) 331: 7191-8909 Fibroscan LSM can also be used with laboratory parameters without formulas to assess prognosis. According to the Baveno-VII criteria (Doyle, 2021), Fibroscan LSM <=15 kPa plus a platelet count of >=331b984/L rules out clinically significant portal hypertension (sensitivity [...] FIB-4 score (Mick et al. Hepatology Communications 2019;3:2199-9362) or NAFLD Fibrosis score (Gipson et al. Clinical Gastroenterology and Hepatology 2019;17:9859-8614 using routine clinical data. Notes: 1. Fibroscan [...] additional interpretive data was last updated 11/19/24.) [email or web address] Cris Jones Shimon PLANNER-HOME TEACHING GRADES 9 THRU 12 TEACHER PROCEDURE/DC NOR SURGICAL ORDERABLES from Last 3 Months Care Teams Decision Support Manager Relationship Specialty Start Date End Date Marquita Dutta DO [address] [place] [address] PCP - General Family Medicine 05/17/24
--- OUTSIDE RECORDS SUMMARY | 2025-02-08 08:09 | XMS_ITS | Referral Summary ---
Author Organization [facility] Address [address] [place] [address] Care Team Providers Care Coding Compliance Auditor Name Role Phone Jose Carlos Ha DO Primary Care Provider +1- [phone] Allergies Active Allergy Reactions Criticality Noted Date Comments Aloe-Lact Ac-Ceramide 3,3b,6,1 Shortness of breath High 02/16/2023 Social History Tobacco Use Types Packs/Day Years Used Date Smoking Tobacco: Never Assessed Personal Safety Answer Date Recorded Getting School Help Needed Not on file 02/21 Comments Unknown Sex and Gender Information Value Date Recorded Sex Assigned at Not on file Legal Sex Female 1:02 AM BUILDING PERFORMANCE SPECIALIST Gender Identity Not on file Sexual Orientation [...] MAMMOGRAM W KELTON Routine 09/21/2014 11:10 AM BUILDING PERFORMANCE SPECIALIST from Last 3 Months or Most Recently Relevant to Health Maintenance Results * Screening Mammogram W Kelton (09/21/2014 11:10 AM BUILDING PERFORMANCE SPECIALIST) Anatomical Region Laterality Modality Breast N/A Mammography 09/21/2014 11:1 0 AM BUILDING PERFORMANCE SPECIALIST Narrative 09/21/2014 4:19 PM BUILDING PERFORMANCE SPECIALIST FLAQUITA JOSHUA M.D. FINAL REPORT ACC# Date Time Exam [id number] Sep 21, 2014 11:10:00 [facility] [id number] Diag Mammogram Bilateral Technologist(s): Naa Collins; ; [id number] Sep 21, 2014 11:10:00 [facility] [id number] Bilateral Tomosynthesis Technologist(s): Naa Collins; ; EXAMINATION: [...] M.D. FINAL REPORT ACC# Date Time Exam [id number] Sep 21, 2014 11:10:00 [facility] [id number] Diag Mammogram Bilateral Technologist(s): Naa Collins; ; [id number] Sep 21, 2014 11:10:00 [facility] [id number] Bilateral Tomosynthesis Technologist(s): Naa Collins; ; EXAMINATION: [...] Most Recently Relevant to Health Maintenance Insurance [facility] MEDIC[facility] ADVANTAGE [facility] MED[facility] ADVANTAGE MRA Care Teams Coding Compliance Auditor Relationship Specialty Start Date End Date Jose Carlos Ha DO PCP - General Internal Medicine 02/16/23
--- OUTSIDE RECORDS SUMMARY | 2025-02-08 08:09 | XMS_ITS | Patient Health Record ---
Author Organization [facility] Address [address] [place] [address] Care Team Providers Care Bicycle Service Technician Name Role Phone Jose Carlos Ha Primary [...] 30 day(s) Active Vitamin D3 1.25 MG (64096 UT) TK 1 C PO ONCE A [...] Status W/U Status Risk Notes Problem Wheezing (96649768) Wheezing (R06.2) Active confirmed Problem Eruption of skin (035057900) Rash and other nonspecific skin eruption (R21) Active confirmed Problem Chronic allergic conjunctivitis (76945563) Other chronic allergic conjunctivitis (H10.45) Active confirmed Problem Allergic rhinitis (29126665) Other allergic rhinitis (J30.89) Active confirmed Problem Allergic contact dermatitis caused by chemical (0278478566199551 3) Allergic contact dermatitis due to other chemical products (L23.5) Active confirmed Encounters Encounter Location Date Provider Diagnosis [address] [address] 05/01/2024 Provider ZZ-Migration Plan Of Treatment No Information Insurance Providers Payer Name Payer Address Payer Phone Subscriber Number Group Number Insured Name Patient Relationship to Insured Coverage Start Date Coverage End Date [facility] [place] [address] [id number] 1 [id number] Elizabeth Sierra Self - patient is the insured Medical (General) History Medical History History ICD Code Vitamin D deficiency, unspecified E55.9 Hyperlipidemia, unspecified E78.5 Gastro-esophageal reflux disease without esophagitis K21.9 Hypothyroidism, unspecified E03.9 Surgical History Surgery Date(Month/Year) Tonsillectomy 11/17/1972 Broken jaw 04/17/1982 Carpal tunnel-right 08/2018 Carpal tunnel-left 11/2018
--- OUTSIDE RECORDS SUMMARY | 2025-02-08 08:09 | XMS_ITS ---
Author Organization [facility] Address [address] [place] [address] Care Team Providers Care Set Decorator Name Role Phone Jose Carlos Ha Primary Care Provider Unavailab le ZZ-Migration, Provider Unavailable Unavailab le Allergies Allergen (clinical drug ingredient) Drug/Non Drug Allergy documented on EMR Reaction Allergy Type Onset Date Status Aloe Dry skin/upper respiratory infection Drug Allergy Active REASON FOR VISIT [facility] To [facility] Conversion Encounter Medications Medication SIG [...] 30 day(s) Active Vitamin D3 1.25 MG (35842 UT) TK 1 C PO ONCE A WEEK FOR 8 WEEKS for 56 Active Ventolin HFA 108 (90 Base) MCG/ACT INHALE 1-2 PUFFS PO Q 4-6 H PRN for 16 Active Encounters Encounter Location Date Provider Diagnosis [facility] [address] [place] [address] 05/01/2024 Provider ZZ-Migration Plan Of Treatment No Information Progress Notes * Varsha SIERRAOB:[birth year] (69 yo F)Acc No.[id number]:05/01/2024 Patient: Elizabeth CALDERÓN Provider: Vic Gambino :1955 A ge:68 Y S ex:Female Date:05/01/2024 Address:[address] [place], [place] [address] Pcp:Jose Carlos Ha Subjective: * Chief Complaints: * [facility] * Medical History: * Medications: T aking Vitamin D3 1.25 MG (80977 UT) Capsule TK 1 C PO ONCE [...] * Procedure Codes: * Electronic signature of Una DonahueZ-Migration on 02/08/2025 at 08:08 AM CDT Sign off status: Pending * Provider: Vic Gambino Date: 05/01/2024 Generated for Watson coffey/Lucia/Julian on: 0 02/08/2025 08:08 AM CDT
--- NOTE | 2025-03-07 08:37 | P.SLEEP_ITS ---
Sleep Study Date of Study: 02/08/25 Ordering Provider: Marquita Dutta DO Interpreting Physician: Marquita Dutta DO Sleep Study Type: CPAP Titration Height: 1.65 m Weight: 70.307 kg Body Mass Index: 25.7 Neck Circumference (inches): 14 [place]: 3 Reason for Sleep Study Difficulty tolerating CPAP after significant weight loss Sleep History The patient is a 69-year-old female that had a sleep study to re-evaluate the presence of sleep apnea after losing 60 lb. The patient denies awakening from sleep short of breath. She denies awakening at night with heartburn, belching or cough. She occasionally snores but is rarely loud enough that others complain. She occasionally has trouble sleeping when she has a cold. She denies waking up gasping for air throughout the night. She denies having breathing problems at night observed by herself or others. He rarely sweats excessively at night. She denies having heart palpitations or irregular heartbeats during the night. He rarely falls asleep during the day but never while driving. She denies sleep paralysis, cataplexy and hypnagogic/ hypnopompic hallucinations. She denies feeling afraid of going to sleep. She denies having nightmares. She rarely remembers her dreams. She denies having thoughts racing through her mind. She denies feeling sad, depressed or anxious. She denies having muscular tension. She rarely notices parts of her body jerk. She denies kicking during the night. She denies having crawling and aching feelings in her legs and denies having leg pain during the night. She denies grinding her teeth during sleep. She rarely awakens with morning jaw pain. She denies being bothered by pain during the day and denies being awakened by pain during the night. She rarely wakes up feeling stiff in the morning. She rarely wakes up with sore or achy muscles. She occasionally wakes up with pain in the neck, spine and other joints. The patient goes to bed at 11:00 p.m. on weekdays and at 10:00 p.m. on the weekends. It takes her 5-10 minutes to fall asleep. She wakes up once throughout the night to urinate is able to fall back asleep within 5 minutes. She wakes up at 6:30 a.m. on both weekdays and weekends. She typically gets 5-6 hours of sleep per night. She will stay in bed for 10 minutes after waking up in the morning. She currently lives alone during the week but stays with her boyfriend on the weekends. He will consume caffeinated beverages within 2 hours before bedtime. She denies engaging in physical exercise before bedtime. She will read before falling asleep. She denies watching television before falling asleep. She denies taking naps in afternoon or the evening. She consumes caffeinated tea or soda during the day. She will occasionally consume an alcoholic beverage. She denies tobacco and recreational drug use. [facility] Past Medical History Medical History Vitamin D deficiency Arthritis ALEAH (obstructive sleep apnea) Meningioma Hypothyroidism, unspecified GERD (gastroesophageal reflux disease) Hyperlipidemia with target LDL less than 130 Jaw fracture 1979 Surgical History Surgical History History of tubal ligation Hx of tonsillectomy 1973 Family History Family History Mother Family history of cardiovascular disease, Onset Age: 61 Father Family history of cardiovascular disease, Onset Age: 63 Carcinoma of colon Sibling Parkinsons disease Alzheimer disease Other Arthritis Atrial fibrillation Congestive heart failure Depression Diabetes mellitus Glaucoma Heart disease Social History Social History Smoking status: Never smoker Alcohol intake: current Alcohol use details: couple of drinks/month Do You Feel Safe in your Home?: Yes Lack of Transportation: No Lack of Food: Never True Current Housing: I Have Housing Concerned About Future Housing: No Difficulty Paying Gas/Electric Bills: No Difficulty Paying for Meds: No Currently Unemployed: No Education: Master's Degree or Higher Difficulty w/ Childcare or Family Care: No Gender identity (if verbalized by the patient): Female Medications Home Medications ?Medication ?Instructions ?Recorded ?Confirmed ?Type aspirin 81 mg tablet,delayed 81 mg PO DAILY 03/19/23 12/30/24 History release (Adult Low Dose Aspirin) CPAP Equipment #1 ea 08/18/23 12/30/24 Rx tirzepatide 2.5 mg/0.5 mL 2.5 mg subcut WEEKLY 12/24/23 12/30/24 History subcutaneous pen injector (Victor Mmirella) atorvastatin 80 mg tablet 80 mg PO QHS #100 tabs 12/24/24 12/30/24 Rx eszopiclone 2 mg tablet (Lunesta) 2 mg PO QHS #1 tablet 12/30/24 Rx triamcinolone acetonide 0.1 % 1 applic topical BID #15 grams 12/30/24 12/30/24 Rx topical cream omeprazole 40 mg capsule,delayed See Rx Instructions .Route 01/12/25 Rx release .COMPLEX #100 caps levothyroxine 112 mcg tablet 112 mcg PO DAILY #90 tabs 03/03/25 Rx (Levo-T) Sleep Procedure A full night CPAP Titration using the WedWu multi-channel system recorded the standard physiologic parameters including EEG, EOG, submentalis EMG, anterior tibialis EMG, EKG, body position, nasal and oral airflow using nasal pressure sensor and thermistor.? Respiratory parameters of chest and abdominal movements were recorded with Respiratory Inductance Plethysmography belts. Oxygen saturation was recorded by pulse oximetry. Video monitoring was also performed. Sleep stages, periodic limb movements, and EEG arousals were s cored in 30 second epochs according to the criteria of the AASM Scoring Manual. The Apnea-Hypopnea Index was calculated using CMS guidelines for definition of hypopnea with 4% O2 desaturations while scoring respiratory events. Sleep Architecture The total recording time was 463.6 minutes.? The total sleep time was 427.0 minutes. Sleep latency was 3.8 minutes. REM latency was 63.0 minutes. Sleep efficiency was 92.1%. The patient had 30 awakenings for an awakening index of 4.2. Wake after Sleep Onset time was 33.0 minutes. The patient spent 46.5 minutes, 10.9% of total sleep time in Stage N1. The patient spent 289.0 minutes, 67.7% in Stage N2. The patient spent 24.0 minutes, 5.6% in Stage N3. The patient spent 67.5 minutes, 15.8% in Stage REM. Respiratory Analysis The patient had 1 hypopnea, 1 obstructive apnea and 1 central apnea for an overall Apnea Hypopnea Index of 0.4 events per hour. The REM Apnea Hypopnea Index was 0. The NREM Apnea Hypopnea Index was 0.5. The patient had a Central Apnea Hypopnea Index of 0.1. There was no evidence of Juan-Brewer Respirations. The patient was started on CPAP 5 cm H2O and titrated to CPAP 8 cm H2O. The patient was able fall asleep started on CPAP 5 cm H2O. The patient was able to achieve REM sleep starting on CPAP 6 cm H2O. The patient was able to achieve a residual AHI less than 5 with both NREM and REM sleep in the supine position on the final 3 pressure settings. On CPAP 6 cm H2O, the patient spent 43 minutes in NREM and 13 minutes in REM with 1 central apnea and 1 hypopnea resulting in an AHI of 2.1. On CPAP 7 cm H2O, the patient spent 111 minutes in NREM and 26.5 minutes in REM with 1 obstructive apnea and 1 hypopnea resulting in an AHI of 0.9. On CPAP 8 cm H2O, the patient spent 181 minutes in NREM and 28 minutes in REM with 2 hypopneas resulting in an AHI of 0.6. The patient had a sleep efficiency of 98.2% on 6 cm H2O, 97.2% on 7 cm H2O and 88.9% on 8 cm H2O. Arousals There were 154 total arousals for an arousal index of 21.6. There were 45 spontaneous arousals for an index of 6.3. ?There were 3 arousals due to respiratory events for an index of 0.4. There were 41 arousals due to periodic limb movements for an index of 5.8.? There were 65 arousals due to isolated limb movements for an index of 9.1. Periodic Limb Movements The patient had 97 isolated limb movements with an index of 13.6. The patient had 56 periodic limb movements with index of 7.9. Patient had a total of 153 limb movements with a total limb movement index of 21.5. Oximetry Data The patient had an average oxygen saturation of 96.6% in sleep with a minimum oxygen saturation of 91.0% and a maximum oxygen saturation of 99.0%. The patient had 1 oxygen desaturations that were 4% or greater resulting in an Oxygen Desaturation Index of 0.1.? The patient spent 0 minutes of total sleep time with an oxygen saturation below 88%. Snoring Profile Moderate snoring was present in the beginning of the study. The snoring resolved once the patient was titrated to 7 cm H2O. Cardiac Profile The EKG showed normal sinus rhythm. No arrhythmias or premature beats were seen. The patient had an average pulse rate of 66.1 bpm with a minimum pulse rate of 55.0 bpm and a maximum pulse rate of 87.0 bpm. ? EEG Profile No signs of seizure activity seen. Assessment and Plan Assessment and Plan (1) ALEAH (obstructive sleep apnea): Code(s): G47.33 - Obstructive sleep apnea (adult) (pediatric) Status: Acute Assessment and Plan: The patient was started on CPAP 5 cm H2O and titrated to CPAP 8 cm H2O. The patient's sleep apnea resolved on multiple pressure settings. I recommend that the patient's pressure settings be changed to CPAP 7 cm H2O using a size medium Resmed AirFit F20 full face mask. This should be used with all episodes of sleep.? Compliance should be reviewed within 31-90 days of starting therapy for usage greater than 4 hours per night greater than 70% of the nights. The patient should be asked about symptoms such as?excessive daytime sleepiness, quality of sleep, decreased nocturia, increased?mental functioning such as memory, mood, and concentration. Data The data obtained during this sleep study is adequate for interpretation. Certification This sleep study has been reviewed by a board certified sleep medicine physician.
[2025-03-07 08:41] VITALS: BMI 25.7
== END 2025-02-09 07:31 | disposition home or self-care (01) ==
PROVIDERS: PCP Family Medicine; Visit Provider Family Medicine
DX: G47.33 Obstructive sleep apnea (adult) (pediatric) (principal)
CPT/HCPCS: 95811

== ENCOUNTER 2025-03-03 15:45 | Outpatient (CLI) | payer MEDICARE, SELFPAY ==
--- OUTSIDE RECORDS SUMMARY | 2025-03-03 15:49 | XMS_ITS | CONTINUITY OF CARE DOCUMENT ---
Author Name sebastian, sebastian Address Unknown Organization [facility] Address [address] [place] [address] Phone [phone] Care Team Providers Care Gas Engine Repairer Name Role Phone Ehsan ANDRADE, Sanya Unavailable [...] In-person encounter Office Visit Sanya Moser MD [facility] Cardiology examination - In-person encounter Office Visit Sanya Moser MD [facility] - In-person encounter Office Visit Sanya Moser MD [facility] - In-person encounter Office Visit Sanya Moser MD [facility] Sleep apnea--using CPAPElevated blood pressure - In-person encounter Office Visit Sanya Moser MD [facility] - In-person encounter Office Visit Sanya Moser MD [facility] - In-person encounter Office Visit Sanya Moser MD [facility] Obesity - In-person encounter Office Visit Sanya Moser MD [facility] HyperlipidemiaMixed hyperlipidemia - In-person encounter Office Visit Sanya Moser MD [facility] - In-person encounter Office Visit Sanya Moser MD [facility] Sleep apnea--using CPAP - In-person encounter Office Visit Dedrick Elizondo MD [facility] - In-person encounter Office Visit Sanya Moser MD [facility] Other symptoms involving cardiovascular systemNear syncopeFAMILY [...] Urrutiaogmarylou blood pressure, cuff size regular [facility] blood pressure, diastolic 93 mm[Hg] [facility] blood pressure, systolic 146 mm[Hg] [facility] 70 /min [facility] oxygen saturation, oximetry 95 % [facility] respiratory rate E&M 15 /min Mile llanos weight E&M 213 [lb_av] [facility] height E&M 65 [in_i] [facility] [place] Body Mass Index (Ratio) 35.11 kg/m2 Stanislaw [...] blood pressure, cuff size large Radha barillas [place] blood pressure, diastolic 60 mm[Hg] Radha barillas [place] blood pressure, systolic 122 mm[Hg] [facility] annalee [place] oxygen saturation, oximetry 95 % [facility] respiratory rate E&M 16 /min Hailey haynes Richardson pulse rate 79 /min [facility] weight E&M 209 [lb_av] [facility] height E&M 65 [in_i] Hoa mzt Body Mass Index (Ratio) 31.68 kg/m2 Stanislaw [...] iron binding capacity, unsaturated 319 ug/dL [facility] 565-073 8712/11/ 17 iron binding capacity, total 376 ug/dL [facility] 876-000 8254/11/ 17 basophil count, absolute 0.1 x10E3/uL [facility] [...] Not Estab. platelet count 280 X10E3/UL [facility] 753-135 4688/11/ 17 red blood cell distribution width 16.5 [...] iron binding capacity, unsaturated 351 ug/dL [facility] 963-595 4320/03/ 08 iron binding capacity, total 393 ug/dL [facility] 436-470 0336/03/ 08 hemoglobin A1C, blood, as % of [...] Not Estab. platelet count 268 X10E3/UL [facility] 655-616 3797/03/ 08 red blood cell distribution width 15.7 [...] [facility] 3.5-5.2 sodium, serum 143 mmol/L [facility] 162-319 9153/03/ 08 urea nitrogen/creatinine ratio, serum 17 [facility] 12-28 eGFR if 99 mL/min/{1. 73_m2} [facility] >59 eGFR if not 86 mL/min/{1. 73_m2} [facility] >59 creatinine, serum 0.76 mg/dL [facility] 0.57-1.00 urea nitrogen, blood 13 mg/dL [facility] 8-27 blood glucose, random 95 mg/dL [facility] 65-99 red blood cell distribution width, size density 51.4 fL [facility] - immature granulocytes, percentage of total cells, blood 0.5 % [facility] - nucleated red blood cells as percent of blood leukocytes 0.0 % [facility] - red blood cell (erythrocyte) count, per [...] passive cigarette sm levy exposure no Alex Shcmidt smoking status Never smoker Alex Russellkarla alcohol [...] Payer name Policy type / Coverage type [place] red libertarian ID [employer] MEDICARE ADVANTAGE ST 0 003 (HMO POS) Medicare [id number] ADVANCE DIRECTIVES Name Date DISCUSSED - NO DECISION MADE TREATMENT PLAN Date Name Performer [id number],S, Alex Ahmedza i [id number],S, Alex Ahmedza i [id number],S, Alex Ahmedza i [id number],S, Alex Ahmedza i [id number],S, Alex Ahmedza i [id number],B, Alex Ahmedza i [id number],S, Alex Ahmedza i [id number],S, Alex Ahmedza i [id number],S, Alex Arisko i [id number],S, Alex Russell i [id number],B, Sanya Moser MD [id number],B, Sanya Moser MD [id number],B, Sanya Moser MD [id number],S, Sanya Moser MD [id number],S, Sanya Moser MD Cardiology: T he following medications were removed from the medication list: Vascepa 1 Gram Capsule (Icosapent ethyl) ..... Take 2 capsules once a day Her updated medication list for this problem includes: Atorvastatin 80 Mg Tablet (Atorvastatin) ..... Take 1 tablet daily Orders: L IPID PANEL (7601) Sanya Moser MD Cardiology: T he following [...] Rx for li pid panel in March [facility] Tele[facility], please fax Rx for li [...] completed EKG Sanya Moser MD completed SNOMED-CT: 174705236406113 Current Medications Documented Sanya Moser MD completed BLOOD COUNT HEMOGLOBIN Sanya Moser MD completed FVC - 88936 Sanya Moser MD complete d FRC - 46539 Sanya Moser MD complete d DLCO - 51458 Sanya Moser MD complet ed SNOMED-CT: 54342691 Physical Exam, Performed: Pulse Exam of Foot Sanya Moser MD completed EKG Sanya Moser MD completed SNOMED-CT: 352636922079983 Current Medications Documented Sanya Moser MD completed SNOMED-CT: 382172657458292 Current Medications Documented Dedrick Elizondo MD completed Event Monitor Caitlyn zarco MD completed Stress EKG Becca Mason MD compl eted Cardiolite, 2 units Sanya Moser MD completed SPECT Images Becca Mason MD com pleted SNOMED-CT: 940526033967382 Current Medications Documented Sanya Moser MD completed EKG Sanya Moser MD completed
--- OUTSIDE RECORDS SUMMARY | 2025-03-03 15:49 | XMS_ITS | Patient Health Record ---
Author Organization [facility] Address [address] [place] [address] Care Team Providers Care Hemp Fiber Taker Off Name Role Phone Jose Carlos Ha Primary [...] 30 day(s) Active Vitamin D3 1.25 MG (30544 UT) TK 1 C PO ONCE A [...] Status W/U Status Risk Notes Problem Wheezing (29472618) Wheezing (R06.2) Active confirmed Problem Eruption of skin (122436079) Rash and other nonspecific skin eruption (R21) Active confirmed Problem Chronic allergic conjunctivitis (37613344) Other chronic allergic conjunctivitis (H10.45) Active confirmed Problem Allergic rhinitis (37054336) Other allergic rhinitis (J30.89) Active confirmed Problem Allergic contact dermatitis caused by chemical (5468541509828227 3) Allergic contact dermatitis due to other chemical products (L23.5) Active confirmed Encounters Encounter Location Date Provider Diagnosis [address] [address] 05/01/2024 Provider ZZ-Migration Plan Of Treatment No Information Insurance Providers Payer Name Payer Address Payer Phone Subscriber Number Group Number Insured Name Patient Relationship to Insured Coverage Start Date Coverage End Date [facility] [address] [place] [address] [id number] Elizabeth Sierra Self - patient is the insured Medical (General) History Medical History History ICD Code Vitamin D deficiency, unspecified E55.9 Hyperlipidemia, unspecified E78.5 Gastro-esophageal reflux disease without esophagitis K21.9 Hypothyroidism, unspecified E03.9 Surgical History Surgery Date(Month/Year) Tonsillectomy 11/17/1972 Broken jaw 04/17/1982 Carpal tunnel-right 08/2018 Carpal tunnel-left 11/2018
--- OUTSIDE RECORDS SUMMARY | 2025-03-03 15:49 | XMS_ITS | Clinical Summary ---
Author Organization [facility] Address [address] [place] [address] Care Team Providers Care X Ray Physician Name Role Phone Jose Carlos Ha DO Primary Care Provider +1- [phone] Allergies Active Allergy Reactions Criticality Noted Date Comments Aloe-Lact Ac-Ceramide 3,3b,6,1 Shortness of breath High 02/16/2023 Social History Tobacco Use Types Packs/Day Years Used Date Smoking Tobacco: Never Assessed Personal Safety Answer Date Recorded Getting School Help Needed Not on file 02/21 Comments Unknown Sex and Gender Information Value Date Recorded Sex Assigned at Not on file Legal Sex Female 1:02 AM MEAL ROOM HAND Gender Identity Not on file Sexual Orientation [...] 08/25/2020 Well Visit 65+ 2022 Covid-19 Vaccine (2023-2 5 season) 2024 10/15/2022, 03/14/2022, 09/09/2021, Additional history exists Influenza Vaccine (Season Ended) 2025 08/14/2022, 09/09/2021, 08/25/2020 DTaP/Tdap/Td Vaccine (2 - Td or Tdap) 04/10/2032 04/10/2022 Zoster Vaccine Completed 11/07/2020, 08/25/2020 Procedures Procedure Name Priority Date/Time Associated Diagnosis Comments SCREENING MAMMOGRAM W KELTON Routine 09/21/2014 11:10 AM MEAL ROOM HAND from Last 3 Months or Most Recently Relevant to Health Maintenance Results * Screening Mammogram W Kelton (09/21/2014 11:10 AM MEAL ROOM HAND) Anatomical Region Laterality Modality Breast N/A Mammography 09/21/2014 11:1 0 AM MEAL ROOM HAND Narrative 09/21/2014 4:19 PM MEAL ROOM HAND FLAQUITA JOSHUA M.D. FINAL REPORT ACC# Date Time Exam [id number] Sep 21, 2014 11:10:00 [facility] [id number] Diag Mammogram Bilateral Technologist(s): Naa Collins; ; [id number] Sep 21, 2014 11:10:00 [facility] [id number] Bilateral Tomosynthesis Technologist(s): Naa Collins; ; EXAMINATION: [...] M.D. FINAL REPORT ACC# Date Time Exam [id number] Sep 21, 2014 11:10:00 [facility] [id number] Diag Mammogram Bilateral Technologist(s): Naa Collins; ; [id number] Sep 21, 2014 11:10:00 [facility] [id number] Bilateral Tomosynthesis Technologist(s): Naa Collins; ; EXAMINATION: [...] Most Recently Relevant to Health Maintenance Insurance [facility] MED[facility] ADVANTAGE [facility] Address: [address] [address] [facility] MEDIC[facility] ADVANTAGE [facility] Address: [place] [id number] [place] [phone] MRA Care Teams X Ray Physician Relationship Specialty Start Date End Date Jose Carlos Ha DO PCP - General Internal Medicine 02/16/23
--- OUTSIDE RECORDS SUMMARY | 2025-03-03 15:49 | XMS_ITS ---
Author Organization [facility] Address [address] [place] [address] Care Team Providers Care Manager Nuclear Name Role Phone Jose Carlos Ha Primary Care Provider Unavailab le ZZ-Migration, Provider Unavailable Unavailab le Allergies Allergen (clinical drug ingredient) Drug/Non Drug Allergy documented on EMR Reaction Allergy Type Onset Date Status Aloe Dry skin/upper respiratory infection Drug Allergy Active REASON FOR VISIT [facility] To [facility] Conversion Encounter Medications Medication SIG (Take, Route, [...] 30 day(s) Active Vitamin D3 1.25 MG (20499 UT) TK 1 C PO ONCE A WEEK FOR 8 WEEKS for 56 Active Ventolin HFA 108 (90 Base) MCG/ACT INHALE 1-2 PUFFS PO Q 4-6 H PRN for 16 Active Encounters Encounter Location Date Provider Diagnosis [facility] [address] [place] [address] 05/01/2024 Provider ZZ-Migration Plan Of Treatment No Information Progress Notes * Varsha SIERRAOB:[birth year] (69 yo F)Acc No.[id number]:05/01/2024 Patient: Elizabeth CALDERÓN Provider: Vic Gambino :1955 A ge:68 Y S ex:Female Date:05/01/2024 Address:[address] [place], [place] [address] Pcp:Jose Carlos Ha Subjective: * Chief Complaints: * 1 . [facility] To [facility] Conversion Encounter. * Medical History: * Medications: T aking Vitamin D3 1.25 MG (59414 UT) Capsule TK 1 C PO ONCE [...] Procedure Codes: * Electronic signature of Prov silvanar ZZ-Migration on 03/03/2025 at 03:48 PM CDT Sign off status: Pending * Provider: Vic Gambino Date: 0 05/01/2024 Generated for Watson coffey/Lucia/Julian on: 0 03/03/2025 03:48 PM CDT
--- OUTSIDE RECORDS SUMMARY | 2025-03-03 15:49 | XMS_ITS | Clinical Summary ---
Author Organization [facility] Address [address] [place] [address] Care Team Providers Care Effervescent Salts Compounder Name Role Phone DuttaMarquita DO Primary Care Provider [phone]- [phone] Source Comments [facility],non-owned Affiliates and Associated Physician Practices is amultiple site organization consisting of ambulatory clinics and hospital sitesin [place], [place], [place] and [place]. This disclosure is being madepursuant to the Care Everywhere program and may not contain all information available regarding this patient. Last updated 18.[facility] Allergies Active Allergy Reactions Criticality Noted Date Comments Aloe Shortness of Breath High 12/06/2024 Lidocaine 08/28/2016 Melaleuca 08/28/2016 Thimerosal Eye Itching 08/25/2020 Medications * Be aware that medications may not be up to date on this document. Alwaysverify current medications with the patient. omeprazole (PRILOSEC) 10 MG capsule Take 4 [...] 5 (five) mg subcutaneously every 7 days Active icosapent ethyl (Vascepa) 1 g capsule Take 1 (one) capsule by mouth once daily Active Cholecalcifero l 1.25 MG (13449 UT) Take 50,000 Units by mouth every [...] Department Care Team Description 12/06/2024 10:00 AM SALES REPRESENTATIVE PRINTING Office Visit [facility] - [address], [place] [address] Cris Robins APRN-ROSI Elevated liver enzymes (Primary Dx) 12/06/2024 9:00 AM SALES REPRESENTATIVE PRINTING Procedure visit [facility] - [address] [place] [address] Gadiel Rose MD Elevated liver enzymes 12/06/2024 Travel from Last 3 Months Immunizations Immunization Administration Dates Next Due INFLUENZA VACCINE, QUADR. [...] = 0.6 oz pur e alcohol) occasionally Comments Unknown Sex and Gender Information Value Date Recorded Sex Assigned at Not on file Legal Sex Female 9:52 AM SALES REPRESENTATIVE PRINTING Gender Identity Not on file Sexual Orientation Not on file Last Filed Vital Signs Vital Sign Reading Time Taken Comments Blood Pressure 111/71 12/06/2024 9:26 AM SALES REPRESENTATIVE PRINTING Pulse 70 12/06/2024 9:26 AM SALES REPRESENTATIVE PRINTING Temperature 36.8 C (98.3 F) 12/06/2024 9:26 AM SALES REPRESENTATIVE PRINTING Respiratory Rate 16 09/01/2018 2:49 PM CDT Oxygen Saturation 100% 12/06/2024 9:26 AM SALES REPRESENTATIVE PRINTING Inhaled Oxygen Concentration - - Weight 71.4 kg (157 lb 6.4 oz) 12/06/2024 9:26 A M SALES REPRESENTATIVE PRINTING Height 166.4 cm (5' 5.5 ) 12/06/2024 9:26 AM SALES REPRESENTATIVE PRINTING Body Mass Index 25.79 12/06/2024 9:26 AM SALES REPRESENTATIVE PRINTING Plan of Treatment Upcoming Encounters Date Type Department Care Team (Late st Contact Info) Description 02/06/2026 10:00 AM CDT Procedure visit [facility] - [place] [address] [place] [address] [phone] 02/06/2026 10:30 AM CDT Office Visit [facility] - [facility] [address] [place] [address] [phone] Cris Robins M, MUD TRUCKER-CHAR BELT OPERATOR [address] [place] [address] [place] [address] Health Maintenance Due Date Last Done Comments [...] 60-74 years 1-dose series) 2017 COVID-19 VACCINE (2023-2 5 season) 2024 DEPRESSION SCREENING 11/17/2024 DIABETES - URINE PROTEIN SCREENING 11/17/2024 MEDICARE AWV CALENDAR YEAR 2024 DIABETES RETINOPATHY SCREENING 12/06/2024 DIABETES-FOOT EXAM WITH MONOFILAMENT 12/06/2024 DIABETES-HGB A1C 06/29/2025 12/30/2024 INFLUENZA VACCINE (Season Ended) 2025 08/25/2020 DIABETES-SERUM CREATININE 12/30/20252024, 05/17/2024 COLOGUARD (AGES 45-75) [...] Management General On track( 025 9:38 AM SALES REPRESENTATIVE PRINTING) No Cammie Huerta, RN Note: Expected end date: Ongoing Interventions: [...] MA LIVER ELASTOGRAPHY Routine 12/06/2024 9:11 AM SALES REPRESENTATIVE PRINTING Elevated liver enzymes from Last 3 Months Results * CBC W DIFF (EXTERNAL RESULT ENTRY) (12/30/2024) WBC (EXTERNAL RESULT) 6.1 10^3/ul Hemoglobin (EXTERNAL RESULT) 14.4 g/dl Hematocrit (EXTERNAL RESULT) 42.6 % Platelets (EXTERNAL RESULT) 217 10^3/ul Neutrophil Absolute (EXTERNAL RESULT) 3.4 10^3/ul Blood BLOOD SPECIMEN / Unknown 12/30/2024 Historical Provider LAB - HEMATOLOGY ORDERABL ES Edited Result - Final * COMP MET PANEL (EXTERNAL RESULT ENTRY) [...] Unknown 12/30/2024 Historical Provider LAB - CHEMISTRY ORDERABLE S Final Result * LIPID PROFILE (EXTERAL RESULT ENTRY) (12/30/2024) Pathologist [facility] Cholesterol (EXTERNAL RESULT) 125 mg/dL Triglycerides (EXTERNAL RESULT) 127 mg/dL HDL (EXTERNAL RESULT) 50 mg/dL LDL (EXTERNAL RESULT) 44 mg/dL VLDL (EXTERNAL RESULT) Chol HDL Ratio (External Result) Blood BLOOD SPECIMEN / Unknown 12/30/2024 Result [facility] Provider LAB - CHEMISTRY ORDERABLE S Final Result * TSH (EXTERNAL RESULT ENTRY) (12/30/2024) Pathologist [facility] TSH (EXTERNAL RESULT) 0.438 uIU/mL Blood BLOOD SPECIMEN / Unknown 12/30/2024 Result [facility] Provider LAB - CHEMISTRY ORDERABLE S Final Result * T4 FREE (EXTERNAL RESULT ENTRY) (12/30/2024) Pathologist [facility] T4 Free (EXTERNAL RESULT) 1.64 ng/dl Blood BLOOD SPECIMEN / Unknown 12/30/2024 Result [facility] Provider LAB - CHEMISTRY ORDERABLE S Final Result * HEMOGLOBIN A1C (EXTERNAL RESULT ENTRY) (12/30/2024) Pathologist [facility] Hemoglobin A1c (EXTERNAL RESULT) 5.3 % Blood BLOOD SPECIMEN / Unknown 12/30/2024 Result [facility] Provider LAB - CHEMISTRY ORDERABLE S Final Result * MA LIVER ELASTOGRAPHY (12/06/2024 9:11 AM SALES REPRESENTATIVE PRINTING) Narrative Gadiel Pardo MD - 12/06/2024 9:11 AM SALES REPRESENTATIVE PRINTING Gadiel Pardo MD 12/06/2024 9:35 AM Diagnosis: [...] of liver-related events. J Hepatol (2021) 76: 6074-5314. Marley PJ, Jonas M, Lennie M, et al. Accuracy of FibroScan controlled attenuation parameter and liver stiffness measurement in assessing steatosis and fibrosis in patients with nonalcoholic fatty liver disease. Gastroenterology 2019;156:6147-6150. Dwaine MS, Alena R, Van Rosemarie ML, [...] Rosaura TA, Pool Houston ML, Corinna M, Martinez A, et al. Validation of the accuracy of the FAST score for detecting patients with at-risk nonalcoholic steatohepatitis (WHITAKER) in a [place] cohort and comparison to other non-invasive algorithms. PLoS ONE (2021) 17: [id number]. Mildred DOWELL, Jerrell J, Julio César ZM, et al. Enhanced diagnosis of advanced fibrosis and cirrhosis in individuals with NAFLD using FibroScan-based Agile scores. J Hepatol (2022) 78: 247-259. Tisha et al. Vibration-controlled transient elastography scores to predict liver-related events in steatotic liver disease. KRYSTAL (2023) 331: 8867-6736 Fibroscan LSM can also be used with laboratory parameters without formulas to assess prognosis. According to the Baveno-VII criteria (Doyle, 202), Fibroscan LSM <=15 kPa plus a platelet count of >=060a566/L rules out clinically significant portal hypertension (sensitivity [...] FIB-4 score (Mick et al. Hepatology Communications 2019;3:8245-2816) or NAFLD Fibrosis score (Gipson et al. Clinical Gastroenterology and Hepatology 2019;17:4239-5827 using routine clinical data. Notes: 1. Fibroscan [...] additional interpretive data was last updated 11/19/24.) [email or web address] Cris Robins MUD TRUCKER-CHAR BELT OPERATOR PROCEDURE/MINOR SURG ICAL ORDERABLES Final Result from Last 3 Months Insurance [facility] MANAGED MEDICARE ADV Care Teams Effervescent Salts Compounder Relationship Specialty Start Date End Date Marquita Dutta DO [address] [place] [address] PCP - General Family Medicine 05/17/24
--- OUTSIDE RECORDS SUMMARY | 2025-03-03 15:49 | XMS_ITS | Continuity of Care Document ---
Author Organization [facility] Address [address] [place] [address] [address] [place] [address] Phone Care Team Providers Care Eastern Philosophy Professor Name Role Phone Hossein Borges Unavailable Unavailable Procedures Procedure Date Office/outpatient Visit, New Advance Directives Directive Yes / No Effective Date File Name No Information Encounters Encounter Description Practice Location Reason(s) For Visit Diagnoses Date Provider Providers Copied on Encounter Office/outpat ient Visit, [facility], [address] [place] [address] [address], [place], [place], [id number], [place] tel:[phone] [facility] No Information 9-[address] Katerina Catalan. [address] , [address], [place], [address], [place]. tel:[phone] Family History Family Member Type Diagnosis Age At Onset No Information Payers Payer name Insurance type Covered libertarian ID Authoriza tion(s) [employer] SOI CI [id number] Social History Type Description Quantity Date Captured [...]
--- OUTSIDE RECORDS SUMMARY | 2025-03-03 15:49 | XMS_ITS | Referral Summary ---
Author Organization [facility] Address [address] [place] [address] Care Team Providers Care Landing Signal Officer Name Role Phone Jose Carlos Ha DO Primary Care Provider [phone] Allergies Active Allergy Reactions Criticality Noted Date Comments Aloe-Lact Ac-Ceramide 3,3b,6,1 Shortness of breath High 02/16/2023 Social History Tobacco Use Types Packs/Day Years Used Date Smoking Tobacco: Never Assessed Personal Safety Answer Date Recorded Getting School Help Needed Not on file 02/21 Comments Unknown Sex and Gender Information Value Date Recorded Sex Assigned at Not on file Legal Sex Female 1:02 AM PRODUCTION LINE TECHNICIAN Gender Identity Not on file Sexual Orientation [...] MAMMOGRAM W KEL[place] Routine 09/21/2014 11:10 AM PRODUCTION LINE TECHNICIAN from Last 3 Months or Most Recently Relevant to Health Maintenance Results * Screening Mammogram W Kelton (09/21/2014 11:10 AM PRODUCTION LINE TECHNICIAN) Anatomical Region Laterality Modality Breast N/A Mammography 09/21/2014 11:1 0 AM PRODUCTION LINE TECHNICIAN Narrative 09/21/2014 4:19 PM PRODUCTION LINE TECHNICIAN FLAQUITA JOSHUA M.D. FINAL REPORT ACC# Date Time Exam [id number] Sep 21, 2014 11:10:00 [facility] [place] [id number] Diag Mammogram Bilateral Technologist(s): Naa Collins; ; [id number] Sep 21, 2014 11:10:00 [facility] [place] [id number] Bilateral Tomosynthesis Technologist(s): Naa Collins; ; EXAMINATION: [...] M.D. FINAL REPORT ACC# Date Time Exam [id number] Sep 21, 2014 11:10:00 [facility] [place] [id number] Diag Mammogram Bilateral Technologist(s): Naa Collins; ; [id number] Sep 21, 2014 11:10:00 [facility] [place] [id number] Bilateral Tomosynthesis Technologist(s): Naa Collins; ; EXAMINATION: [...] Most Recently Relevant to Health Maintenance Insurance [facility] MEDICARE ADVANTAGE [facility] MEDICARE ADVANTAGE MRA Care Teams Landing Signal Officer Relationship Specialty Start Date End Date Jose Carlos Ha DO PCP - General Internal Medicine 02/16/23
--- OUTSIDE RECORDS SUMMARY | 2025-03-03 15:49 | XMS_ITS | Data Portability ---
Author Organization [facility] Address [address] [place] [address] Care Team Providers Care Law Office Assistant Name Role Phone GALLO WAKEFIELD Diamond Driller Unavailable Assessment No assessment recorded. Plan of Treatment Reminders Order Date Submit Date Provider Last Modified By Organization Details Last Modified Time Details Appointments None recorded. Lab bacterial vaginosis + vaginitis panel, vaginal 2020 021 [facility], [address], [place], [address], 1 19:11:13 Pap smear tests - FPAR 2.0 set 2020 021 [facility], [address], [place], [address], 1 17:08:51 pap, IG + HPV, cervical 2014 015 [facility], [address], [address], [place], [address], 5 06:09:50 bacterial vaginosis + vaginitis panel, vaginal 2014 015 JENNA [facility], [address], [address], [place], [address], 5 14:29:56 HSV (1+2) DNA, qual, PCR, unspecifi ed specimen 2014 015 [facility], [address] [facility], [address], [place], [address], 5 14:29:57 culture, vaginal/r ectal, streptoco ccus group B [address] [facility], [address] [facility], [address], [place], [address], 5 14:29:58 Referral None recorded. Procedures None recorded. Surgeries None recorded. Imaging MAMMO, screening , digital, bilateral 2020 021 [facility], [address], [place], [address], 1 09:35:06 US, pelvis, transabdo kevin + transvagi nal 2020 021 [facility], [address], [place], [address], 1 12:01:41 MAMMO, screening , digital, bilateral 2016 017 [facility] Breast [facility] (Mammogram), [facility], [place], [address], 7 10:08:08 DEXA, axial skeleton 2016 017 [facility] (Radiology), [facility], [place], [address], 7 10:08:08 mammogram , screening 2014 015 [email or web address] Not available 6 09:37:47 Medication Orders Premarin 0.625 mg/gram vaginal cream 2016 017 [facility] #03288, [address], [place], [place], [id number], 1 08:24:35 multivita min tablet 2016 017 [facility] #39761, [address], [place], [place], [id number], 1 08:24:13 calcium 600 mg (as carbonate )-vitamin D3 20 mcg (800 unit) tablet 2016 017 [facility] #[id number], [address], [place], [place], [id number], 1 08:23:46 Estrace 0.01% (0.1 mg/gram) vaginal cream 2014 015 [facility] #33268, [address] , [place], [place], [id number], 1 08:24:04 Patient TargetsNo targets recorded. Patient Instructions Encounter Date Encounter Id Patient Instructions Last Modified By Organization Details Last Modified Time 09/25/2015 [id number] learning about breast cancer screening [email or web address] Not available 09/25/2015 16:42:48 12/04/2016 [id number] atrophic vaginitis: care instructions [email or web address] Not available 12/05/2016 10:08:08 mammogram: about this test [email or web address] Not available 12/05/2016 10:08:08 09/28/2021 [id number] atrophic vaginitis: care instructions Not available 09/28/2021 09:26:59 mammogram: about this test Not available 09/28/2021 09:26:59 Reason for Referral None Reported. Results Created Date Observation Date Name Description Value Unit Range Abnormal Flag Note LastModifiedBy Organization Detail LastModifiedTime 09/25/20 15 09/27/2015 bacte rial vagin osis + vagin itis panel , vagin al trich vag by TANNA NEGATI VE negati ve Not Available [facility] ([facility]) [address] [facility], [place], [address], 10/03/2015 14:29:56 09/25/20 15 09/28/2015 bacte rial vagin osis + vagin itis panel , vagin al atopobium vaginae LOW - 0 score Not Available [facility] ([facility]) [address] [place], [address], 10/03/2015 14:29:56 09/25/20 15 09/28/2015 bacte rial vagin osis + vagin itis panel , vagin al bvab 2 LOW - 0 score Not Available [facility] ([facility]) [address] [place], [address], 10/03/2015 14:29:56 09/25/20 15 09/28/2015 bacte rial vagin osis + vagin itis panel , vagin al megasphaera 1 LOW - 0 score CALCU LATE TOTAL SCORE BY KENISHA Nñuez THE 3 INDIV IDUAL BACTE RIAL VAGIN [...] IS NOT NECES RUFINO. Not Available [facility] ([facility]) [address] [place], [address], 10/03/2015 14:29:56 09/25/20 15 09/28/2015 bacte rial vagin osis + vagin itis panel , vagin al albert albicans, TANNA NEGATI VE negati ve Not Available [facility] ([facility]) [address] [place], [address], 10/03/2015 14:29:56 09/25/20 15 09/28/2015 bacte rial [...] IS NOT NECES RUFINO. Not Available [facility] ([facility]) [address] [place], [address], 10/03/2015 14:29:56 09/25/20 15 10/03/2015 bacte rial vagin osis + vagin itis panel , vagin al chlamydia trachomatis, TANNA NEGATI VE negati ve Not Available [facility] ([facility]) [address] [place], [address], 10/03/2015 14:29:56 09/25/20 15 10/03/2015 bacte rial vagin osis + vagin itis panel , vagin al neisseria gonorrhoeae, TANNA NEGATI VE negati ve Not Available [facility] ([facility]) [address] [place], [address], 10/03/2015 14:29:56 09/25/20 15 09/27/2015 HSV (1+2) DNA, qual, PCR, unspe cifie d speci men hsv 1 TANNA NEGATI VE negati ve Not Available [facility] ([facility]) [address] [place], [address], 10/03/2015 14:29:57 09/25/20 15 09/27/2015 HSV (1+2) DNA, qual, PCR, unspe cifie d speci men hsv 2 TANNA NEGATI VE negati ve Not Available [facility] ([facility]) [address] [facility], [place], [address], 10/03/2015 14:29:57 09/25/20 15 09/27/2015 cultu re, [...] LINES , MMWR, 2009) Not Available [facility] ([facility]) [address] [facility], [place], [address], 10/03/2015 14:29:57 09/25/20 15 09/28/2015 pap, IG + HPV, cervi raoul diagnosis: COMMEN T NEGAT CLARA FOR INTRA EPITH ELIAL LESIO N AND MALCHELSEY SMITHCY . REACT CLARA CELLU LAR VAZQUEZ ES AND/O R REPAI R ARE PRESE NT. Not Available [facility] ([facility]) [address] [facility], [place], [address], 10/04/2015 06:09:50 09/25/20 15 09/28/2015 pap, IG + HPV, cervi raoul specimen adequacy: COMMEN T SATIS FACTO RY FOR EVALU ATION . ENDOC ERVIC AL AND/O R SQUAM OUS METAP LASTI C CELLS (ENDO CERVI RAOUL COMPO NENT) ARE PRESE NT. Not Available [facility] ([facility]) [address] [facility], [place], [address], 10/04/2015 06:09:50 09/25/20 15 09/28/2015 pap, IG + HPV, cervi raoul performed by: NICKOLAS STRONG , CYTOT ECHNO LOGIS T (ASCP ) Not Available [facility] ([facility]) [address] [place], [address], 10/04/2015 06:09:50 09/25/20 15 09/28/2015 pap, IG + HPV, cervi raoul electronical ly signed by: NICKOLAS Graham MD, PATHO LOGIS T Not Available [facility] ([facility]) [address] [place], [address], 10/04/2015 06:09:50 09/25/20 15 09/28/2015 pap, IG + HPV, cervi raoul . . Not Available [facility] ([facility]) [address] [place], [address], 10/04/2015 06:09:50 09/25/20 15 09/28/2015 pap, IG [...] TS DO OCCUR . Not Available [facility] ([facility]) [address] [place], [address], 10/04/2015 06:09:50 09/25/20 15 09/28/2015 pap, IG + HPV, cervi raoul test methodology: NICKOLAS Herrera THIS LIQUI D BASED THINP REP(R ) PAP TEST WAS SCREE CASPER WITH THE USE OF AN IMAGE GUIDE Bibi Rawls Not Available [facility] ([facility]) [address] [place], [address], 10/04/2015 06:09:50 09/25/20 15 09/29/2015 pap, IG + HPV, cervi raoul HPV aptima POSITI VE negati ve abnormal THIS TEST DETEC TS FOURT EEN HIGH- RISK HPV TYPES (16/1 8/31/ 33/35 /39/4 5/ 51/52 /56/5 8/59/ 66/68 ) WITHO UT DIFFE RENTI ATION . Not Available [facility] ([facility]) [address] [place], [address], 10/04/2015 06:09:50 09/25/20 15 10/03/2015 writt en autho caitlin rcv written authoriz rcv COMMEN T WRITT EN AUTHO RIZAT ION FOR ADDED TEST( S) HAS BEEN RECEI UMBERTO. TEST [address] GALLO BURGESS. Not Available [facility] ([facility]) [address] [place], [address], 10/04/2015 06:09:51 09/25/20 15 09/26/2015 pleas e note please note COMMEN T WE HAVE RECEI UMBERTO YOUR REQUE ST FOR ADDIT IONAL TESTI NG OR TEST VERIF ICATI ON. YOU WILL BE NOTIF IED IF WE ARE UNABL E TO PROCE SS YOUR REQUE ST. Not Available [facility] ([facility]) [address] [facility], [place], [address], 10/04/2015 06:09:51 09/28/20 21 10/02/2021 IGP, APTIM A HPV HPV aptima Negati ve negati ve This nucle ic acid ampli ficat ion test detec ts fourt een high- risk HPV types (16,1 8,31, 33,35 ,39,4 5,51, 52,56 ,58,5 9,66, 68) witho ut diffe renti ation . Not Available [facility] ([facility]) [address] [place], [address], 10/03/2021 17:08:51 09/28/20 21 10/03/2021 IGP, APTIM A HPV diagnosis: Commkylie t NEGAT CLARA FOR INTRA EPITH ELIAL LESIO N OR MALIG YVONNE . Not Available [facility] ([facility]) [address] [place], [address], 10/03/2021 17:08:51 09/28/20 21 10/03/2021 IGP, APTIM A HPV specimen adequacy: Nickolas t Satis facto ry for evalu ation . Endoc ervic al and/o r squam ous metap lasti c cells (endo cervi raoul compo nent) are prese nt. Not Available [facility] ([facility]) [address] [place], [address], 10/03/2021 17:08:51 09/28/20 21 10/03/2021 IGP, APTIM A HPV clinician provided ICD10: Nickolas herrera Z01.4 19 Not Available [facility] ([facility]) [address] [place], [address], 10/03/2021 17:08:51 09/28/20 21 10/03/2021 IGP, APTIM A HPV performed by: Nickolas paniagua, Catrina herrera (ASCP ) Not Available [facility] ([facility]) [address] [place], [address], 10/03/2021 17:08:51 09/28/20 21 10/03/2021 IGP, APTIM A HPV . . Not Available [facility] ([facility]) [address] [place], [address], 10/03/2021 17:08:51 09/28/20 21 10/03/2021 IGP, APTIM [...] ts do occur . Not Available [facility] ([facility]) [address] [place], [address], 10/03/2021 17:08:51 09/28/20 21 10/03/2021 IGP, APTIM A HPV test methodology: Commen t This liqui d based ThinP rep(R ) pap test was purae casper with the use of an image guide bibi silverio. Not Available [facility] ([facility]) [address] [place], [address], 10/03/2021 17:08:51 09/28/20 21 10/02/2021 NUSWA B VAGIN ITIS PLUS (VG+) trich vag by TANNA Negati ve negati ve Not Available [facility] ([facility]) [address] [place], [address], 10/03/2021 19:11:13 09/28/20 21 10/02/2021 NUSWA B VAGIN ITIS PLUS (VG+) chlamydia trachomatis, TANNA Negati ve negati ve Not Available [facility] ([facility]) [address] [place], [address], 10/03/2021 19:11:13 09/28/20 21 10/02/2021 NUSWA B VAGIN ITIS PLUS (VG+) neisseria gonorrhoeae, TANNA Negati ve negati ve Not Available [facility] ([facility]) [address] [place], [address], 10/03/2021 19:11:13 09/28/20 21 10/03/2021 NUSWA B VAGIN ITIS PLUS (VG+) atopobium vaginae Low - 0 score Not Available [facility] ([facility]) [address] [place], [address], 10/03/2021 19:11:13 09/28/20 21 10/03/2021 NUSWA B VAGIN ITIS PLUS (VG+) bvab 2 Low - 0 score Not Available [facility] ([facility]) [address] [place], [address], 10/03/2021 19:11:13 09/28/20 21 10/03/2021 NUSWA B [...] Drug Admin istra tion. Not Available [facility] ([facility]) [address] [facility], [place], [address], 10/03/2021 19:11:13 09/28/20 21 10/03/2021 NUA B VAGIN ITIS PLUS (VG+) albert albicans, TANNA Negati ve negati ve Not Available [facility] ([facility]) [address] [facility], [place], [address], 10/03/2021 19:11:13 09/28/20 21 10/03/2021 NUA B VAGIN ITIS PLUS (VG+) albert glabrata, TANNA Negati ve negati ve Not Available [facility] ([facility]) [address] [facility], [place], [address], 10/03/2021 19:11:13 03/11/20 16 01/18/2016 mammo lio garza No observ ation record ed. [email or web address] Not Available 03/19 17:08:01 03/21/20 16 03/21/2016 dexa PT NAME: SAGAR CAROLINA EEHank W : 1954 PT SEX/AG E: F/60 PT ACCT NUMBER : [id number] PT MR#: [id number] ROOM/B ED: PT STATUS : REG CLI DATE OF EXAMIN ATION: ORDERI PHYSIC LAXMI: GALLO CAUSEY MAN M.Hernesto ATTEND [facility] PHYSIC LAXMI: GALLO CAUSEY MAN , [...] and standa rd cranio caudal view. COMPAR GUNNAR: [address] [place] , [place] bilate [...] [facility] [address] [place] [address] [phone] (Imaging) [address] [facility], [place], [address], 03/22/2016 13:04:40 03/21/20 16 03/21/2016 mammo gram, spot compr essio n PT NAME: JOBY ValenzuelaSAGAR W : 1954 PT SEX/AG E: F/60 PT ACCT NUMBER : [id number] PT MR#: [id number] ROOM/B ED: PT STATUS : REG [...] quadra nts and subare olar area COMPAR GUNNAR: 03/21/16 diagno stic right digita l mammog [...] THAPA M.D.__ ___ [facility] [address] [place] [id number] [facility] (Mammogram) [address], [place], [address], 03/22/2016 13:05:40 01/29/20 17 01/21/2017 MAMMO , scree allan, bilat eral No observ ation record ed. [email or web address] Not Available 2016 15:56:19 02/04/20 18 MAMMO , scree allan, bilat eral No observ ation record ed. [email or web address] Not Available 2017 09:07:03 10/16/20 21 10/16/2021 US, pelvi s, trans abdom inal + trans vagin al No observ ation record ed. [address], [place], [address], 10/24/2021 13:17:07 Result Notes None recorded. Problems Name Problem SNOMED Code Status Onset Date Resolution Date Notes Provider Name and Address Organization Details Recorded Time Menopausal symptom 74175563 Active Gallo Good null, [place] - [facility] 6 21:30:14 Human papilloma virus infection 172579480 Active Gallo Good null, [place] - [facility] 6 21:30:14 Mammography abnormal 706190310 Active Gallo Goodjohn brothers, [place] - [facility] 6 21:30:14 Problem Notes None recorded. Procedures Surgical History Date Name Laterality Status Provider Name and Address Organization Details Recorded Time 09/24/20 15 Date of Last Pap Smear completed Dede Ching MA [facility] 12/04/2016 16:31:23 02/23/20 15 Most Recent Mammogram completed Dede Ching MA [facility] 09/25/2015 15:53:43 Tubal Ligation completed Dede Ching MA [facility] 12/04/2016 16:31:01 Tonsillectomy completed Dede Ching MA [facility] 09/25/2015 16:06:35 Imaging Results Imaging Date Name Status LastModified by Organization Details LastModified Time 01/18/2016 mammogram, screening [email or web address] Information not available 03/19/2016 17:08:01 03/21/2016 dexa completed [address] (Imaging) [address] [place] [address] [address], [place], [address], 03/22/2016 13:04:40 03/21/2016 mammogram, spot compression completed [email or web address] [facility] (Mammogram) [address], [place], [address], 03/22/2016 13:05:40 01/21/2017 MAMMO, screening, bilateral completed [email or web address] Information not available 01/28/2017 15:56:19 02/03/2018 MAMMO, screening, bilateral completed [email or web address] Information not available 02/04/2018 09:07:03 10/16/2021 US, pelvis, transabdominal + transvaginal completed [place] [address] [facility] [address], [place], [address], 10/24/2021 13:17:07 Procedure Notes None recorded. Medical Equipment None Reported. Allergies Allergen ID Allergen Name Allergen Category Reaction Reaction Severity Criticality Documentation Date Start Date Code Code System Note Provider Name and Address Organization Details Recorded Time 40428 aloe extract food,medi cation respirato ry distress moderate Not available 09/25/2015 94701 RxNorm Not Available Not Available Not Available [...] Updated DateTime 1 165.1 cm 30.7 kg/m2 00181.8 g 73 /min 99 [degF] 97 % 97 % 118 mm[Hg] 76 mm[Hg] Tanesha Meza MA [place] - [facility] 1 08:52:05 Date Recorded Body height Body mass index (BMI) Body weight Systolic blood pressure Diastolic blood pressure Provider Name and Address Organization Details Last Updated DateTime 09/25/2015 165.1 cm 32.3 kg/m2 53820.91 978 g 134 mm[Hg] 72 mm[Hg] Dede Ching MA [facility] 5 16:08:53 Date Recorded Body height Body weight Body mass index (BMI) Systolic blood pressure Diastolic blood pressure Provider Name and Address Organization Details Last Updated DateTime 12/04/2016 165.1 cm 38328.29 g 32.9 kg/m2 112 mm[Hg] 72 mm[Hg] Dede Ching MA [facility] 7 16:39:55 Social History Question Answer Notes LastModified by Organizat ion Details LastModified Time Tobacco Smoking Status Never Smoker Dede Ching MA [facility], [facility] 09/25/2015 16:06:35 Do You Have An Advance [...] Problems Y Kidney or Bladder Problems N GI Problems N Lung Disease N Depression N Acne N Breast Problem N Eating Disorder N Anemia N Anesthesia Complications N Headaches/Migraines N Anxiety Disorder N Diabetes N Ovarian Cancer N Blood Transfusions N Arthritis N Polyps [...] SNOMED-CT Code Diagnosis ICD10 Code Diagnosis Note [id number] Gallo Lanier ([employer]IN[employer]) [address] [place] [phone] 09/25/2015 15:25:49 09/25/2015 16:43:34 Gynecologic examination 41494852 Z01.419 Screening for malignant neoplasm of breast 817244840 Z12.39 mammogram provided through work,. Menopausal symptom 05993 002 N95.1 [id number] Gallo Lanier ([employer]) [address] [place] [phone] 12/04/2016 15:39:39 12/13/2016 14:55:50 Screening mammography 64750186 Z12.31 Screening for osteoporosis 112845532 Z13.820 Gynecologi c examination 75756471 Z01.419 Atrophic vaginitis 83966 000 N95.2 Menopausal symptom 70629 002 N95.1 [id number] WILLIAM OCHOA (Adult Med) [address] [place] [phone] 09/28/2021 08:13:35 10/01/2021 11:03:40 Screening mammography 09754062 Z12.31 Last mammogram was a few years [...] call and schedule herself. Screening for osteoporosis 905773164 Z13.820 Dexa scan ordered in the past but not completed because not covered by her insurance- will complete at age 67 Gynecologi c examination 63378346 Z01.419 Here today for annual WWELast pap smear: 09/2015, positive for [facility]Hx [facility] 50s, no longer having issues with menopausal symptomsCo mplaining of intermitte nt left lower quadrant pain only with intercours e, does not tend to cause her pain at any other time.- nuswab and pap smear completed in the office today Atrophic vaginitis 91585 000 N95.2 Noted on physical exam, patient denies issues with vaginal dryness- provided her handout Left lower quadrant pain 765404187 R10.32 Complainin g of intermitte nt left lower quadrant pain only with intercours e, does not tend to cause her pain at any other time.On PE: LLQ tender to palpation, normal bimanual exam- will order pelvic US to rule out MANAGER OF PROJECT MANAGEMENT causes Health Concerns Section Related Observation LastModified by Organization Detai ls LastModified Time None Recorded Concern Status LastModified by Organization Details LastModified Time None Recorded Advance Directives Directive N: Payers Encounter Date Sequence Insurance Name Policy Number Policy Larios Covered Member ID Larios Member ID Guarantor Name 09/25/2015 1 [place] [id number] Yaniv Sierra [id number] 12/04/2016 1 [place] [id number] Yaniv Sierra [id number] 09/28/2021 1 [place] [id number] Yaniv Sierra [id number] 09/28/2021 1 [place] [id number] Yaniv Sierra [id number] Sierra Notes Date Note Type Note Provider Name and Address Organization Details Recorded Time 12/04/2016 text/html Annual Bank Boss Post-MenopausalRepor alejandra bypatient.Menopausal Symptoms:no menopausal symptoms; normal [...] menopausal w/hx of tubal ligation for annual [employer]NAGER [employer] PRO[employer] MANAGEMENT [facility]o [facility] 12/07/2016 11:30:30 09/28/2021 text/html Annual Bank Boss Post-MenopausalRepor alejandra bypatient.Menopausal Symptoms:post-menopa use Vaginal Bleeding:history [...] menopausal w/hx of tubal ligation for annual [employer]GER OF PRO[employer] MANAGEMENT. Last pap smear: 09/2015, positive for HPVComplaining [...] is breast pain. She follows with a financial reporting director due to HLD and major family history of heart disease, has upcoming appointment next week. Hx of GERD, takes omeprazole daily. WILLIAM OCHOA Attn: Accounting,[address] [facility], [place], [address], [facility] 09/28/2021 15:50:11 OBGyn Episode Ob Episode Information Episode Created Date Number of Fetuses Patient Bloodtype Patient rh Status Prepregnancy Weight lbs Domestic Partner Domestic Partner Phone Father Name Admissions Clerk Status 09/25/20 15 1 CLOSED Fetus Data First Name Last Name Admitted to NICU Weight (g) Sex Living Outcome Pediatric Complications Fetus ID Race Codes Race Delivery Type 3968.93 M Full Term [id number] Vaginal Federico Calculation Initial Federico Date Initial Exam Date Initial Exam Provider Initial Ultrasound Date Last Menstrual Period Date Ultra Sound Weeks Gestation 0 Eighteen To Twenty Week Federico Update Ultra Sound Date Fundal Height At Umbil Quickening Date Ultra Sound Latest Weeks Gestation Final Federico Confirmed By Final Feedrico Confirmed Date Final Federico Date Ultra Sound Latest Days Gestation 0 0 Menstrual History Last Menstrual Date Menses Monthly On Bcp Conception Prior Menses Frequency Hcg Plus Date Menarche Onset Age Delivery Information Delivery Date Delivery Type Labor Anesthesia Weeks Gestation Incision Type Labor Labor Length Hrs Delivered By Post Complications Tubal Sterilization Discharge Date Comments [address] [place] [address] Discharge Information Feeding Method Contraceptive Method Maternal HG B and HCT Levels Ob Episode Information Episode Created Date Number of Fetuses Patient Bloodtype Patient rh Status Prepregnancy Weight lbs Domestic Partner Domestic Partner Phone Father Name Admissions Clerk Status 09/25/20 15 1 CLOSED Fetus Data First Name Last Name Admitted to NICU Weight (g) Sex Living Outcome Pediatric Complications Fetus ID Race Codes Race Delivery Type 3685.43 5 F Full Term [id number] Vaginal Federico Calculation Initial Federico Date Initial [...]
[2025-03-03 16:43] LABS: Alanine Aminotransferase 21 U/L (6-35); Aspartate Amino Transferase 29 U/L (14-36)
== END 2025-03-03 15:46 | disposition home or self-care (01) ==
PROVIDERS: PCP Family Medicine; Visit Provider Podiatrist Foot & Ankle Surgery
DX: B35.1 Tinea unguium (principal)
CPT/HCPCS: 36415; 84450; 84460

== ENCOUNTER 2025-05-10 11:09 | Outpatient (CLI) | payer MEDICARE, SELFPAY ==
--- NOTE | ~2025-05-10 | US_ITS ---
EXAM: PELVIC ULTRASOUND HISTORY: R10.2 - Pelvic and perineal pain COMPARISON: None FINDINGS: UTERUS: 7.2 x 3.0 x 4.4 cm. The uterus is anteverted and anteflexed. The endometrial complex measures 3 mm. RIGHT OVARY: The right ovary is unremarkable in echogenicity and size measuring 1.7 x 1.3 x 1.8cm. Dopplerable flow is identified. LEFT OVARY: The left ovary is unremarkable in echogenicity and size measuring 1.7 x 1.4 x 1.5 cm Dopplerable flow is identified. No free fluid is identified within the pelvis. IMPRESSION: Unremarkable sonographic evaluation of the pelvis. Further evaluation with cross-sectional imaging (contrast-enhanced CT examination of the abdomen and pelvis) is recommended for further evaluation. Reviewed, dictated and finalized at location A. IMPRESSION: Unremarkable sonographic evaluation of the pelvis. Further evaluation with cross-sectional imaging (contrast-enhanced CT examinati on of the abdomen and pelvis) is recommended for further evaluation.
== END 2025-05-10 11:10 | disposition home or self-care (01) ==
PROVIDERS: PCP Family Medicine; Visit Provider Nurse Practitioner Family
DX: R10.2 Pelvic and perineal pain (principal)
CPT/HCPCS: 76830; 76856

== ENCOUNTER 2025-06-02 10:52 | Outpatient (CLI) | payer MEDICARE, SELFPAY ==
--- OUTSIDE RECORDS SUMMARY | 2025-06-02 11:08 | XMS_ITS | Patient Health Record ---
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 Name Role Phone Jose Carlos Ha Primary Care Provider Unavailab le Allergies Allergen (clinical drug ingredient) Drug/Non Drug Allergy documented on EMR Reaction Allergy Type Onset Date Status Aloe Dry skin/upper respiratory infection Drug Allergy Active Reason For Referral No Information Medications Medication SIG (Take, Route, Frequency, Duration) Notes Start Date End Date Status DICLOFENAC sodium 75 mg 1 tab(s) orally 2 times a day; Duration: 30 day(s) Active PRAVASTATIN 40 mg 1 tab(s) orally once a day; Duration: 30 day(s) Active LEVOTHYROXINE 125 mcg (0.125 mg) 1 tab(s) orally once a day; Duration: 30 day(s) Active Vitamin D3 1.25 MG (64589 UT) TK 1 C PO ONCE A WEEK FOR 8 WEEKS; Duration: 56 Active VASCEPA 1 g 2 cap(s) orally 2 ti mes a day; Duration: 30 day(s) Active VITAMIN D3 50,000 intl units TK 1 C PO O NCE A WEEK FOR 8 WEEKS; Duration: 56 Active VENTOLIN HFA 90 mcg/inh INHALE 1-2 PUFFS PO Q 4-6 H PRN; Duration: 16 Active OMEPRAZOLE 40 mg 1 cap(s) orally once a day; Duration: 30 day(s) Active Ventolin HFA 108 (90 Base) MCG/ACT INHALE 1-2 PUFFS PO Q 4-6 H PRN; Duration: 16 Active Omeprazole 40 MG 1 cap(s) orally once a day; Duration: 30 day(s) Active Levothyroxine Sodium 125 MCG 1 tab(s) or ally once a day; Duration: 30 day(s) Active Vascepa 1 GM 2 cap(s) orally 2 ti mes a day; Duration: 30 day(s) Active Diclofenac Sodium 75 MG 1 tab(s) orally 2 times a day; Duration: 30 day(s) Active Pravastatin Sodium 40 MG 1 tab(s) orally once a day; Duration: 30 day(s) Active Social History Tobacco Use: Social History Observation Description Date Details (start date - stop date) Never Smoker NA - NA Smoking Smart Form: Question Answer Notes Are you a: never smoker Problems Problem Type SNOMED Code ICD Code Onset Dates Problem Status W/U Status Risk Notes Problem Wheezing (97659367) Wheezing (R06.2) Active confirmed Problem Eruption of skin (569703403) Rash and other nonspecific skin eruption (R21) Active confirmed Problem Chronic allergic conjunctivitis (17546852) Other chronic allergic conjunctivitis (H10.45) Active confirmed Problem Allergic rhinitis (58599809) Other allergic rhinitis (J30.89) Active confirmed Problem Allergic contact dermatitis caused by chemical (8605013789027496 3) Allergic contact dermatitis due to other chemical products (L23.5) Active confirmed Plan Of Treatment No Information Insurance Providers Payer Name Payer Address Payer Phone Subscriber Number Group Number Insured Name Patient Relationship to Insured Coverage Start Date Coverage End Date [facility] [address] [place] [address] [id number] Elizabeth Sierra Self - patient is the insured Medical (General) History Medical History History ICD Code Vitamin D deficiency, unspecified E55.9 Hyperlipidemia, unspecified E78.5 Gastro-esophageal reflux disease without esophagitis K21.9 Hypothyroidism, unspecified E03.9 Surgical History Surgery Date(Month/Year) Tonsillectomy 11/17/1972 Broken jaw 04/17/1982 Carpal tunnel-right 08/2018 Carpal tunnel-left 11/2018
--- OUTSIDE RECORDS SUMMARY | 2025-06-02 11:08 | XMS_ITS | Continuity of Care Document ---
Author Organization [facility] Address [address] [place] [address] [address] [place] [address] Phone Care Team Providers Care Exhibitions And Collections Manager Name Role Phone Hossein Borges Unavailable Unavailable Procedures Procedure Date Office/outpatient Visit, New Advance Directives Directive Yes / No Effective Date File Name No Information Encounters Encounter Description Practice Location Reason(s) For Visit Diagnoses Date Provider Providers Copied on Encounter Office/outpat ient Visit, [facility], [address] [place] [address] [address], [place], [place], [id number], [place] tel:[phone] SEC [facility] No Information [address]. [address] [facility] , [address], [place], [address], [place]. tel:[phone] Family History Family Member Type Diagnosis Age At Onset No Information Payers Payer name Insurance type Covered alliance party ID Authoriza tion(s) [employer] SOI CI [id number] Social History Type Description Quantity Date Captured [...]
--- OUTSIDE RECORDS SUMMARY | 2025-06-02 11:08 | XMS_ITS ---
Author Organization [facility] [employer] [facility] [place] ([address]) Address [address] [place] [address] Care Team Providers Care Law Clerk Name Role Phone Jose Carlos Ha Primary Care Provider Unavailab le [employer], Provider Unavailable Unavailab le Allergies Allergen (clinical drug ingredient) Drug/Non Drug Allergy documented on EMR Reaction Allergy Type Onset Date Status Aloe Dry skin/upper respiratory infection Drug Allergy Active REASON FOR VISIT [facility] Conversion Encounter Medications Medication SIG (Take, [...] 30 day(s) Active Vitamin D3 1.25 MG (97811 UT) TK 1 C PO ONCE A WEEK FOR 8 WEEKS; Duration: 56 Active Ventolin HFA 108 (90 Base) MCG/ACT INHALE 1-2 PUFFS PO Q 4-6 H PRN; Duration: 16 Active Encounters Encounter Location Date Provider Diagnosis [facility] [address] [address] 05/01/2024 Provider [employer] Plan Of Treatment No Information Progress Notes * Liseth SIERRAenDOB:[birth year] (69 yo F)Acc No.[id number]:05/01/2024 Patient: Elizabeth CALDERÓN Provider: Vic Gambino :1955 A ge:68 Y S ex:Female Date:05/01/2024 Address:[address] [place], [place] [id number] Pcp:Jose Carlos Ha Subjective: * Chief Complaints: * 1 . [facility] * Medical History: * Medications: T aking Vitamin D3 1.25 MG (33566 UT) Capsule TK 1 C PO ONCE [...] Procedure Codes: * Electronic signature of Una gomez [employer] on 06/02/2025 at 11:07 AM CDT Sign off status: Pending * Provider: Vic Gambino Date: 0 05/01/2024 Generated for Watson coffey/Lucia/Julian on: 06/02/2025 11:07 AM CDT
--- OUTSIDE RECORDS SUMMARY | 2025-06-02 11:08 | XMS_ITS | Data Portability ---
Author Organization [facility] Address [address] [place] [address] Care Team Providers Care Pathology Manager Name Role Phone GALLO WAKEFIELD Sharepoint Application Architect Unavailable Assessment No assessment recorded. Plan of Treatment Reminders Order Date Submit Date Provider Last Modified By Organization Details Last Modified Time Details Appointments None recorded. Lab bacterial vaginosis + vaginitis panel, vaginal 2020 021 [facility], [address], [place], [address], 1 19:11:13 Pap smear tests - FPAR 2.0 set 2020 021 [facility], [address], [place], [address], 1 17:08:51 pap, IG + HPV, cervical 2014 015 [place], [address], [address], [place], [address], 5 06:09:50 bacterial vaginosis + vaginitis panel, vaginal 2014 015 [place], [address], [address], [place], [address], 5 14:29:56 HSV (1+2) DNA, qual, PCR, unspecifi ed specimen 2014 015 [facility], [address], [address], [place], [address], 5 14:29:57 culture, vaginal/r ectal, streptoco ccus group B 2014 015 [facility], [address], [address], [place], [address], 5 14:29:58 Referral None recorded. Procedures None recorded. Surgeries None recorded. Imaging MAMMO, screening , digital, bilateral 2020 021 [facility], [address], [place], [address], 1 09:35:06 US, pelvis, transabdo kevin + transvagi nal 2020 021 [facility], [address], [place], [address], 1 12:01:41 MAMMO, screening , digital, bilateral 2016 017 [facility] (Mammogram), [address] [place] [address], [place], [address], 7 10:08:08 DEXA, axial skeleton 2016 017 [facility] (Radiology), [address] [place] [address], [place], [address], 7 10:08:08 mammogram , screening 2014 015 [email or web address] Not available 6 09:37:47 Medication Orders Premarin 0.625 mg/gram vaginal cream 2016 017 [facility][id number], [address], [place], [place], [id number], 1 08:24:35 multivita min tablet 2016 017 [facility] #25933, [address], [place], [place], [id number], 1 08:24:13 calcium 600 mg (as carbonate )-vitamin D3 20 mcg (800 unit) tablet 2016 017 [facility] #25322, [address], [place], [place], [id number], 1 08:23:46 Estrace 0.01% (0.1 mg/gram) vaginal cream 2014 015 [facility] #85205, [address], [place], [place], [id number], 1 08:24:04 Patient TargetsNo targets recorded. Patient Instructions Encounter Date Encounter Id Patient Instructions Last Modified By Organization Details Last Modified Time 09/25/2015 [id number] learning about breast cancer screening [email or web address] Not available 09/25/2015 16:42:48 12/04/2016 [id number] atrophic vaginitis: care instructions mwasserman Not available 12/05/2016 10:08:08 mammogram: about this test mwasserman Not available 12/05/2016 10:08:08 09/28/2021 [id number] atrophic vaginitis: care instructions Not available 09/28/2021 09:26:59 mammogram: about this test Not available 09/28/2021 09:26:59 Reason for Referral None Reported. Results Created Date Observation Date Name Description Value Unit Range Abnormal Flag Note LastModifiedBy Organization Detail LastModifiedTime 09/25/20 15 09/27/2015 bacte rial vagin osis + vagin itis panel , vagin al trich vag by TANNA NEGATI VE negati ve Not Available [facility] ([facility]) [address], [place], [address], 10/03/2015 14:29:56 09/25/20 15 09/28/2015 bacte rial vagin osis + vagin itis panel , vagin al atopobium vaginae LOW - 0 score Not Available [facility] ([facility]) [address] [place], [address], 10/03/2015 14:29:56 09/25/20 15 09/28/2015 bacte rial vagin osis + vagin itis panel , vagin al bvab 2 LOW - 0 score Not Available [facility] ([facility]) [address] [place], [address], 10/03/2015 14:29:56 09/25/20 15 09/28/2015 bacte rial [...] IS NOT NECES RUFINO. Not Available [facility] ([facility]) [address], [place], [address], 10/03/2015 14:29:56 09/25/20 15 09/28/2015 bacte rial vagin osis + vagin itis panel , vagin al albert albicans, TANNA NEGATI VE negati ve Not Available [facility] ([facility]) [address] [place], [address], 10/03/2015 14:29:56 09/25/20 15 09/28/2015 bacte rial [...] IS NOT NECES RUFINO. Not Available [facility] ([facility]) [address], [place], [address], 10/03/2015 14:29:56 09/25/20 15 10/03/2015 bacte rial vagin osis + vagin itis panel , vagin al chlamydia trachomatis, TANNA NEGATI VE negati ve Not Available [facility] ([facility]) [address] [place], [address], 10/03/2015 14:29:56 09/25/20 15 10/03/2015 bacte rial vagin osis + vagin itis panel , vagin al neisseria gonorrhoeae, TANNA NEGATI VE negati ve Not Available [facility] ([facility]) [address] [place], [address], 10/03/2015 14:29:56 09/25/20 15 09/27/2015 HSV (1+2) DNA, qual, PCR, unspe cifie d speci men hsv 1 TANNA NEGATI VE negati ve Not Available [facility] ([facility]) [address] [place], [address], 10/03/2015 14:29:57 09/25/20 15 09/27/2015 HSV (1+2) DNA, qual, PCR, unspe cifie d speci men hsv 2 TANNA NEGATI VE negati ve Not Available [facility] ([facility]) [address], [place], [address], 10/03/2015 14:29:57 09/25/20 15 09/27/2015 cultu re, [...] LINES , MMWR, 2009) Not Available [facility] ([facility]) [address], [place], [address], 10/03/2015 14:29:57 09/25/20 15 09/28/2015 pap, IG + HPV, cervi raoul diagnosis: COMMEN T NEGAT CLARA FOR INTRA EPITH ELIAL LESIO N AND MALIG YVONNE . REACT CLARA CELLU LAR VAZQUEZ ES AND/O R REPAI R ARE PRESE NT. Not Available [facility] ([facility]) [address], [place], [address], 10/04/2015 06:09:50 09/25/20 15 09/28/2015 pap, IG + HPV, cervi raoul specimen adequacy: COMMEN T SATIS FACTO RY FOR EVALU ATION . ENDOC ERVIC AL AND/O R SQUAM OUS METAP LASTI C CELLS (ENDO CERVI RAOUL COMPO NENT) ARE PRESE NT. Not Available [facility] ([facility]) [address], [place], [address], 10/04/2015 06:09:50 09/25/20 15 09/28/2015 pap, IG + HPV, cervi raoul performed by: NICKOLAS STRONG , CYTOT ECHNO LOGIS T (ASCP ) Not Available [facility] ([facility]) [address] [place], [address], 10/04/2015 06:09:50 09/25/20 15 09/28/2015 pap, IG + HPV, cervi raoul electronical ly signed by: NICKOLAS Graham MD, PATHO LOGIS T Not Available [facility] ([facility]) [address] [place], [address], 10/04/2015 06:09:50 09/25/20 15 09/28/2015 pap, IG + HPV, cervi raoul . . Not Available [facility] ([facility]) [address] [place], [address], 10/04/2015 06:09:50 09/25/20 15 09/28/2015 pap, IG [...] TS DO OCCUR . Not Available [facility] ([facility]) [address] [place], [address], 10/04/2015 06:09:50 09/25/20 15 09/28/2015 pap, IG + HPV, cervi raoul test methodology: NICKOLAS Herrera THIS LIQUI D BASED THINP REP(R ) PAP TEST WAS SCREE CASPER WITH THE USE OF AN IMAGE GUIDE Bibi Silverio. Not Available [facility] ([facility]) [address] [place], [address], 10/04/2015 06:09:50 09/25/20 15 09/29/2015 pap, IG + HPV, cervi raoul HPV aptima POSITI VE negati ve abnormal THIS TEST DETEC TS FOURT EEN HIGH- RISK HPV TYPES (16/1 8/31/ 33/35 /39/4 5/ 51/52 /56/5 8/59/ 66/68 ) WITHO UT DIFFE RENTI ATION . Not Available [facility] ([facility]) [address], [place], [address], 10/04/2015 06:09:50 09/25/20 15 10/03/2015 writt en autho caitlin rcv written authoriz rcv COMMEN T WRITT EN AUTHO RIZAT ION FOR ADDED TEST( S) HAS BEEN RECEI UMBERTO. TEST [address] GALLO BURGESS. Not Available [facility] ([facility]) [address], [place], [address], 10/04/2015 06:09:51 09/25/20 15 09/26/2015 pleas e note please note COMMEN T WE HAVE RECEI UMBERTO YOUR REQUE ST FOR ADDIT IONAL TESTI NG OR TEST VERIF ICATI ON. YOU WILL BE NOTIF IED IF WE ARE UNABL E TO PROCE SS YOUR REQUE ST. Not Available [facility] ([facility]) [address], [place], [address], 10/04/2015 06:09:51 09/28/20 21 10/02/2021 IGP, APTIM A HPV HPV aptima Negati ve negati ve This nucle ic acid ampli ficat ion test detec ts fourt een high- risk HPV types (16,1 8,31, 33,35 ,39,4 5,51, 52,56 ,58,5 9,66, 68) witho ut diffe renti ation . Not Available [facility] ([facility]) [address], [place], [address], 10/03/2021 17:08:51 09/28/20 21 10/03/2021 IGP, APTIM A HPV diagnosis: Commen t NEGAT CLARA FOR INTRA EPITH ELIAL LESIO N OR MALCHELSEY RUSSELL . Not Available [facility] ([facility]) [address] [place], [address], 10/03/2021 17:08:51 09/28/20 21 10/03/2021 IGP, APTIM A HPV specimen adequacy: Commen t Satis facto ry for evalu ation . Endoc ervic al and/o r squam ous metap lasti c cells (endo cervi raoul compo nent) are prese nt. Not Available [facility] ([facility]) [address] [place], [address], 10/03/2021 17:08:51 09/28/20 21 10/03/2021 IGP, APTIM A HPV clinician provided ICD10: Nickolas herrera Z01.4 19 Not Available [facility] ([facility]) [address] [place], [address], 10/03/2021 17:08:51 09/28/20 21 10/03/2021 IGP, APTIM A HPV performed by: Nickolas paniagua, Cytosharon herrera (ASCP ) Not Available [facility] ([facility]) [address] [place], [address], 10/03/2021 17:08:51 09/28/20 21 10/03/2021 IGP, APTIM A HPV . . Not Available [facility] ([facility]) [address] [place], [address], 10/03/2021 17:08:51 09/28/20 21 10/03/2021 IGP, APTIM [...] ts do occur . Not Available [facility] ([facility]) [address] [place], [address], 10/03/2021 17:08:51 09/28/20 21 10/03/2021 IGP, APTIM A HPV test methodology: Commen t This liqui d based ThinP rep(R ) pap test was scree casper with the use of an image guide bibi silverio. Not Available [facility] ([facility]) [address] [place], [address], 10/03/2021 17:08:51 09/28/20 21 10/02/2021 NUSWA B VAGIN ITIS PLUS (VG+) trich vag by TANNA Negati ve negati ve Not Available [facility] ([facility]) [address] [place], [address], 10/03/2021 19:11:13 09/28/20 21 10/02/2021 NUSWA B VAGIN ITIS PLUS (VG+) chlamydia trachomatis, TANNA Negati ve negati ve Not Available [facility] ([facility]) [address] [place], [address], 10/03/2021 19:11:13 09/28/20 21 10/02/2021 NUSWA B VAGIN ITIS PLUS (VG+) neisseria gonorrhoeae, TANNA Negati ve negati ve Not Available [facility] ([facility]) [address] [place], [address], 10/03/2021 19:11:13 09/28/20 21 10/03/2021 NUSWA B VAGIN ITIS PLUS (VG+) atopobium vaginae Low - 0 score Not Available [facility] ([facility]) [address] [place], [address], 10/03/2021 19:11:13 09/28/20 21 10/03/2021 NUSWA B VAGIN ITIS PLUS (VG+) bvab 2 Low - 0 score Not Available [facility] ([facility]) [address] [place], [address], 10/03/2021 19:11:13 09/28/20 21 10/03/2021 NUA B VAGIN ITIS PLUS (VG+) megasphaera 1 [...] Drug Admin istra tion. Not Available [facility] ([facility]) [address], [place], [address], 10/03/2021 19:11:13 09/28/20 21 10/03/2021 NUA B VAGIN ITIS PLUS (VG+) albert albicans, TANNA Negati ve negati ve Not Available [facility] ([facility]) [address] [place], [address], 10/03/2021 19:11:13 09/28/20 21 10/03/2021 NUA B VAGIN ITIS PLUS (VG+) albert glabrata, TANNA Negati ve negati ve Not Available [facility] ([facility]) [address] [place], [address], 10/03/2021 19:11:13 03/11/20 16 01/18/2016 mammo lio garza No observ ation record ed. [email or web address] Not Available 03/19 17:08:01 03/21/20 16 03/21/2016 dexa PT NAME: SAGAR CAROLINA ROSIEHank W : 1954 PT SEX/AG E: F/60 PT ACCT NUMBER : [id number] PT MR#: [id number] ROOM/B ED: PT STATUS : REG CLI DATE OF EXAMIN ATION: ORDERI PHYSIC LAXMI: GALLO CAUSEY MAN M.Hernesto ATTEND ING PHYSIC LAXMI: GALLO CAUSEY MAN , M.D. DICTAT ING PHYSIC LAXMI: Sharon THAPA M.D. 020 DIGITA L MAMM DIAG-R [...] cranio caudal view. COMPAR GUNNAR: [address] [place] , [place] bilate ral [...] [facility] [address] [place] [address] (Imaging) [address] [place] [address], [address], 03/22/2016 13:04:40 03/21/20 16 03/21/2016 mammo gram, spot compr essio n PT NAME: SAGAR CAROLINA W : 1954 PT SEX/AG E: F/60 PT ACCT NUMBER : [id number] PT MR#: [id number] ROOM/B ED: PT STATUS : REG CLI DATE OF EXAMIN ATION: ORDERI NG PHYSIC LAXIM: GALLO CAUSEY MAN M.D. ATTEND ING PHYSIC LAXMI: GALLO CAUSEY MAN , M.D. DICTAT ING PHYSIC LAXMI: Sharon THAPA M.D. 041 US BREAST COMPLE TE [...] THAPA M.D.__ ___ [facility] [address] [place] [email or web address] [facility] (Mammogram) [address], [place], [address], 03/22/2016 13:05:40 01/29/20 17 01/21/2017 MAMMO , scree allan, bilat eral No observ ation record ed. [email or web address] Not Available 2016 15:56:19 02/04/20 18 MAMMO , scree allan, bilat eral No observ ation record ed. [email or web address] Not Available 2017 09:07:03 10/16/20 21 10/16/2021 US, pelvi s, trans abdom inal + trans vagin al No observ ation record ed. [place] [id number], [place], [address], 10/24/2021 13:17:07 Result Notes None recorded. Problems Name Problem SNOMED Code Status Onset Date Resolution Date Notes Provider Name and Address Organization Details Recorded Time Menopausal symptom 69607996 Active Gallo Good null, [place] - [facility] 6 21:30:14 Human papilloma virus infection 594971561 Active Gallo Good [place], [place] - [facility] 6 21:30:14 Mammography abnormal 283722354 Active Gallo Good [place], [place] - [facility] 6 21:30:14 Problem Notes None recorded. Procedures Surgical History Date Name Laterality Status Provider Name and Address Organization Details Recorded Time 09/24/20 15 Date of Last Pap Smear completed Dede Ching MA [facility] 12/04/2016 16:31:23 02/23/20 15 Most Recent Mammogram completed SAY Dias [facility] 09/25/2015 15:53:43 Tubal Ligation completed Dede Ching [place] [facility] 12/04/2016 16:31:01 Tonsillectomy completed Dede Ching MA [facility] 09/25/2015 16:06:35 Imaging Results None recorded. Procedure Notes None recorded. Medical Equipment None Reported. Allergies Allergen ID Allergen Name Allergen Category Reaction Reaction Severity Criticality Documentation Date Start Date Code Code System Note Provider Name and Address Organization Details Recorded Time 05123 aloe extract food,medi cation respirato ry distress moderate Not available 09/25/2015 11896 RxNorm Dede ChingSAY null, [place] - [facility] 5 15:49:25 Medications Name Sig Start Date Stop Date [...] Available Vitals Date Recorded Body height Body weight Body mass index (BMI) Systolic And Diastolic Provider Name and Address Organization Details Last Updated DateTime 12/04/2016 165.1 cm 12868.29 g 32.9 kg/m2 112/72 mm[Hg] Dede Ching MA [facility] 12/04/2016 16:39:55 Date Recorded Body height Body mass index (BMI) Body weight Systolic And Diastolic Provider Name and Address Organization Details Last Updated DateTime 09/25/2015 165.1 cm 32.3 kg/m2 22002.919 78 g 134/72 mm[Hg] Dede Ching MA [facility] 09/25/2015 16:08:53 Date Recorded Body height Body mass index (BMI) Body weight Heart rate Body temperature Oxygen saturation Oxygen saturation in Arterial blood by Pulse oximetry Systolic And Diastolic Provider Name and Address Organization Details Last Updated DateTime 1 165.1 cm 30.7 kg/m2 41641.8 g 73 /min 99 [degF] 97 % 97 % 118/76 mm[Hg] Tanesha Meza MA [facility] 08:52:05 Social History Question Answer Notes LastModified by Organizat ion Details LastModified Time Tobacco Smoking Status [facility] 09/25/2015 16:06:35 Do You Have An Advance Directive? [place] [address] Information not available 09/25/2015 Is Blood Transfusion Acceptable In An Emergency? Yes [email or web address] Information not available 09/25/2015 What Is Your Level Of Caffeine Consumption? Heavy Information not available 09/25/2015 How Much Tobacco Do You Chew? None Information not available 09/25/2015 What Type Of Diet Are You Following? REGULAR Information not available 09/25/2015 Which Illicit Or Recreational Drugs Have You Used? None Information not available 09/25/2015 Education 4 Year College Information not available 09/25/2015 Live Alone Or [...] ion Details LastModified Time What is your level of alcohol consumption? Occasional Information not available 09/25/2015 Are you currently employed? 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 Occasional Information [...] GI Problems N Depression N Acne N Eating Disorder N Breast Problem N Anemia N Anesthesia Complications N Headaches/Migraines [...] SNOMED-CT Code Diagnosis ICD10 Code Diagnosis Note [id number] MD Yannick Jacobs (REFRACTORY REPAIRER) [address] [place] [address] 09/25/2015 15:25:49 09/25/2015 16:43:34 Gynecologic examination 75269885 Z01.419 Screening for malignant neoplasm of breast 022967717 Z12.39 mammogram provided through work,. Menopausal symptom 58080 002 N95.1 [id number] MD Yannick Jacobs (REFRACTORY REPAIRER) [address] [place] [address] 12/04/2016 15:39:39 12/13/2016 14:55:50 Screening mammography 02294791 Z12.31 Screening for osteoporosis 913487945 Z13.820 Gynecologi c examination 81366533 Z01.419 Atrophic vaginitis 14711 000 N95.2 Menopausal symptom 50820 002 N95.1 [id number] [facility] (Adult Med) [address] [place] [address] 09/28/2021 08:13:35 10/01/2021 11:03:40 Screening mammography 66823537 Z12.31 Last mammogram was a few years [...] call and schedule herself. Screening for osteoporosis 878942347 Z13.820 Dexa scan ordered in the past but not completed because not covered by her insurance- will complete at age 67 Gynecologi c examination 70651587 Z01.419 Here today for annual WWELast pap smear: 09/2015, positive for [facility]Hx [facility]s, no longer having issues with menopausal symptomsCo mplaining of intermitte nt left lower quadrant pain only with intercours e, does not tend to cause her pain at any other time.- nuswab and pap smear completed in the office today Atrophic vaginitis 20461 000 N95.2 Noted on physical exam, patient denies issues with vaginal dryness- provided her handout Left lower quadrant pain 515163077 R10.32 Complainin g of intermitte nt left lower quadrant pain only with intercours e, does not tend to cause her pain at any other time.On PE: LLQ tender to palpation, normal bimanual exam- will order pelvic US to rule out LEARNING SPECIALIST causes Health Concerns Section Related Observation LastModified by Organization Detai ls LastModified Time None Recorded Concern Status LastModified by Organization Details LastModified Time None Recorded Advance Directives Directive N: Payers Insurance Date Sequence Insurance Name Policy Number Policy Larios Covered Member ID Larios Member ID Guarantor Name 10/23/2021 1 [place] [id number] Yaniv Sierra [id number] Elizabeth Sierra 10/22/2021 1 [place] [id number] Yaniv Sierra [id number] Elizabeth Sierra 10/15/2021 2 *SELF PAY* Say stacykristen Rigo Notes Date Note Type Note Provider Name and Address Organization Details Recorded Time 12/04/2016 text/html Annual Rug Cleaner Hand Post-MenopausalRepor alejandra bypatient.Menopausal Symptoms:no menopausal symptoms; normal [...] menopausal w/hx of tubal ligation for annual LEARNING SPECIALIST Gallo HernandezGood NO brothers - [facility] 12/07/2016 11:30:30 09/28/2021 text/html Annual Rug Cleaner Hand Post-MenopausalRepor alejandra bypatient.Menopausal Symptoms:post-menopa use Vaginal Bleeding:history [...] menopausal w/hx of tubal ligation for annual LEARNING SPECIALIST. Last pap smear: 09/2015, positive for [...] is breast pain. She follows with a water taxi boat mate due to HLD and major family history of heart disease, has upcoming appointment next week. Hx of GERD, takes omeprazole daily. WILLIAM OCHOA Attn: Accounting[address] [place], [address], [facility] 09/28/2021 15:50:11 OBGyn Episode Ob Episode Information Episode Created Date Number of Fetuses Patient Bloodtype Patient rh Status Prepregnancy Weight lbs Domestic Partner Domestic Partner Phone Father Name Precipitation Equipment Tender Status 09/25/20 15 1 CLOSED Fetus Data First Name Last Name Admitted to NICU Weight (g) Sex Living Outcome Pediatric Complications Fetus ID Race Codes Race Delivery Type 3968.93 M Full Term 32253 Vaginal Federico Calculation Initial Federico Date Initial [...] Complications Tubal Sterilization Discharge Date Comments 7 Local 40 Discharge Information Feeding Method Contraceptive Method Maternal HG B and HCT Levels Ob Episode Information Episode Created Date Number of Fetuses Patient Bloodtype Patient rh Status Prepregnancy Weight lbs Domestic Partner Domestic Partner Phone Father Name Precipitation Equipment Tender Status 09/25/20 15 1 CLOSED Fetus Data First Name Last Name Admitted to NICU Weight (g) Sex Living Outcome Pediatric Complications Fetus ID Race Codes Race Delivery Type 3685.43 5 F Full Term 22496 Vaginal Federico Calculation Initial Federico Date Initial [...] Complications Tubal Sterilization Discharge Date Comments [address] [place] [address] Discharge Information Feeding Method Contraceptive Method Maternal HG B and HCT Levels
--- OUTSIDE RECORDS SUMMARY | 2025-06-02 11:08 | XMS_ITS | Clinical Summary ---
Author Organization [facility] Address [address] [place] [address] Care Team Providers Care Sew Out Operator Name Role Phone DuttaMarquita DO Primary Care Provider [phone]- [phone] Source Comments [facility],non-owned Affiliates and Associated Physician Practices is amultiple site organization consisting of ambulatory clinics and hospital sitesin [place], [place], [place] and [place]. This disclosure is being madepursuant to the Care Everywhere program and may not contain all information available regarding this patient. Last updated 18.[facility] Allergies Active Allergy Reactions Criticality Noted Date [...] once daily Active Cholecalcifero l 1.25 MG (38660 UT) Take 50,000 Units by mouth every [...] 09/11/2015 Fatigue 09/11/2015 Near syncope 09/11/2015 Immunizations Immunization Administration Dates Next Due INFLUENZA [...] on file Legal Sex Female 9:52 AM FACILITY MAINTENANCE SUPERVISOR Gender Identity Not on file Sexual Orientation Not on file Last Filed Vital Signs Vital Sign Reading Time Taken Comments Blood Pressure 111/71 12/06/2024 9:26 AM FACILITY MAINTENANCE SUPERVISOR Pulse 70 12/06/2024 9:26 AM FACILITY MAINTENANCE SUPERVISOR Temperature 36.8 C (98.3 F) 12/06/2024 9:26 AM FACILITY MAINTENANCE SUPERVISOR Respiratory Rate 16 09/01/2018 2:49 PM CDT Oxygen Saturation 100% 12/06/2024 9:26 AM FACILITY MAINTENANCE SUPERVISOR Inhaled Oxygen Concentration - - Weight 71.4 kg (157 lb 6.4 oz) 12/06/2024 9:26 A M FACILITY MAINTENANCE SUPERVISOR Height 166.4 cm (5' 5.5) 12/06/2024 9:26 AM FACILITY MAINTENANCE SUPERVISOR Body Mass Index 25.79 12/06/2024 9:26 AM FACILITY MAINTENANCE SUPERVISOR Plan of Treatment Upcoming Encounters Date Type Department Care Team (Late st Contact Info) Description 02/06/2026 10:00 AM CDT Procedure visit [facility] [address] [place] [phone] 02/06/2026 10:30 AM CDT Office Visit [facility] [place] [address] [place] [phone] Cris Robins, ENGINEERING ADMINISTRATOR-SANDING SUPERVISOR [address] [place] [address] Health Maintenance Due Date Last Done Comments [...] (1 of 2) 2007 MAMMOGRAM 09/21/2016 09/21/2014, 09/21/2014 Respiratory Syncytial Virus (RSV) Vaccine Pt: or over 60 yrs (1 - Risk 60-74 years 1-dose series) 2017 COVID-19 VACCINE (1 - 2023-2 5 season) 2024 DEPRESSION SCREENING 11/17/2024 DIABETES - URINE PROTEIN SCREENING 11/17/2024 MEDICARE AWV CALENDAR YEAR 2024 DIABETES RETINOPATHY SCREENING 12/06/2024 DIABETES-FOOT EXAM WITH MONOFILAMENT 12/06/2024 DIABETES-HGB A1C 06/29/2025 12/30/2024 INFLUENZA VACCINE (#1) 2025 08/25/2020 DIABETES-SERUM CREATININE 12/30/20252024, 05/17/2024 COLOGUARD [...] Management General On track( 025 9:38 AM FACILITY MAINTENANCE SUPERVISOR) No Cammie Huerta RN Note: Expected end date: Ongoing Interventions: Take all medications as prescribed Let your doctor know right away about any changes in your medications Make sure to request a refill of your medication at least one week prior to your last dose Procedures Procedure Name Priority Date/Time Associated Diagnosis Comments COMP MET PANEL (EXTERNAL RESULT ENTRY) Routine 12/30/2024 HEMOGLOBIN A1C (EXTERNAL RESULT ENTRY) Routine 12/30/2024 from Last 3 Months or Most Recently Relevant to Health Maintenance Results * COMP MET PANEL (EXTERNAL RESULT ENTRY) [...] LAB - CHEMISTRY ORDERABLE S Final Result from Last 3 Months or Most Recently Relevant to Health Maintenance Insurance [facility] MANAGED MEDICARE ADV Care Teams Sew Out Operator Relationship Specialty Start Date End Date Marquita Dutta DO [address] [place] [address] PCP - General Family Medicine 05/17/24
[2025-06-02 11:49] LABS: Alanine Aminotransferase 24 U/L (6-35); Aspartate Amino Transferase 36 U/L (14-36)
== END 2025-06-02 10:53 | disposition home or self-care (01) ==
LOC: ANHLAB 10:53
PROVIDERS: PCP Family Medicine; Visit Provider Podiatrist Foot & Ankle Surgery
DX: B35.1 Tinea unguium (principal)
CPT/HCPCS: 36415; 84450; 84460

== ENCOUNTER 2025-09-08 09:19 | Outpatient (CLI) | payer MEDICARE, SELFPAY ==
--- OUTSIDE RECORDS SUMMARY | 2025-09-08 09:47 | XMS_ITS | Clinical Summary ---
Author Organization [facility] Address [address] [place] [address] Care Team Providers Care Claims Collector Name Role Phone DuttaMarquita DO Primary Care Provider [phone]- [phone] Source Comments [facility],non-owned Affiliates and Associated Physician Practices is amultiple site organization consisting of ambulatory clinics and hospital sitesin [place], [place], [place] and [place]. This disclosure is being madepursuant to the Care Everywhere program and may not contain all information available regarding this patient. Last updated 18.[facility] Allergies Active Allergy Reactions Criticality Noted Date [...] once daily Active Cholecalcifero l 1.25 MG (71178 UT) Take 50,000 Units by mouth every [...] on file Legal Sex Female 9:52 AM JUVENILE CORRECTIONS OFFICER Gender Identity Not on file Sexual Orientation Not on file Last Filed Vital Signs Vital Sign Reading Time Taken Comments Blood Pressure 111/71 12/06/2024 9:26 AM JUVENILE CORRECTIONS OFFICER Pulse 70 12/06/2024 9:26 AM JUVENILE CORRECTIONS OFFICER Temperature 36.8 C (98.3 F) 12/06/2024 9:26 AM JUVENILE CORRECTIONS OFFICER Respiratory Rate 16 09/01/2018 2:49 PM CDT Oxygen Saturation 100% 12/06/2024 9:26 AM JUVENILE CORRECTIONS OFFICER Inhaled Oxygen Concentration - - Weight 71.4 kg (157 lb 6.4 oz) 12/06/2024 9:26 A M JUVENILE CORRECTIONS OFFICER Height 166.4 cm (5' 5.5) 12/06/2024 9:26 AM JUVENILE CORRECTIONS OFFICER Body Mass Index 25.79 12/06/2024 9:26 AM JUVENILE CORRECTIONS OFFICER Plan of Treatment Upcoming Encounters Date Type Department Care Team (Late st Contact Info) Description 02/06/2026 10:00 AM CDT Procedure visit [facility] [place] [address] [place] [phone] 02/06/2026 10:30 AM CDT Office Visit [facility] [place] [address] [place] [phone] Cris Robins, INSIDE SALES LEAD-FURNITURE FINISHER HELPER [address] [place] [address] Health Maintenance Due Date Last Done Comments [...] - Risk 60-74 years 1-dose series) 2017 DEPRESSION SCREENING 11/17/2024 DIABETES - URINE PROTEIN SCREENING 11/17/2024 MEDICARE AWV CALENDAR YEAR 2024 DIABETES RETINOPATHY SCREENING 12/06/2024 DIABETES-FOOT EXAM WITH MONOFILAMENT 12/06/2024 DIABETES-HGB A1C 06/29/2025 12/30/2024 COVID-19 VACCINE (1 - 2023-2 5 season) 2025 INFLUENZA VACCINE (#1) 2025 08/25/2020 DIABETES-SERUM CREATININE [...] Management General On track( 025 9:38 AM JUVENILE CORRECTIONS OFFICER) No Cammie Huerta RN Note: Expected end [...] Most Recently Relevant to Health Maintenance Insurance [facility] MANAGED MEDICARE ADV Care Teams Claims Collector Relationship Specialty Start Date End Date Marquita Dutta DO [address] [place] [address] PCP - General Family Medicine 05/17/24
--- OUTSIDE RECORDS SUMMARY | 2025-09-08 09:47 | XMS_ITS | Clinical Summary ---
Author Organization [facility] Address [address] [place] [address] Care Team Providers Care Medical Staff Assistant Name Role Phone Patrickchristie Jose Carlos Campa DO Primary Care Provider Allergies Active Allergy Reactions Criticality Noted Date Comments Aloe-Lact Ac-Ceramide 3,3b,6,1 Shortness of breath High 02/16/2023 Social History Tobacco Use Types Packs/Day Years Used Date Smoking Tobacco: Never Assessed Personal Safety Answer Date Recorded Getting School Help Needed Not on file 02/21 Comments Unknown Sex and Gender Information Value Date Recorded Sex Assigned at Not on file Legal Sex Female 1:02 AM TUBE WINDER Gender Identity Not on file Sexual Orientation [...] Pneumococcal vaccine 65+ (2 of 2 - PCV20 or PCV21) 08/25/2021 08/25/2020 Well Visit 65+ 2022 Covid-19 Vaccine (6 - 2024-2 6 season) 2025 10/15/2022, 03/14/2022, 09/09/2021, Additional history exists Influenza Vaccine (#1) 2025 2, 09/09/2021, 08/25/2020 DTaP/Tdap/Td Vaccine (2 - Td or Tdap) 04/10/2032 04/10/2022 Zoster Vaccine Completed 11/07/2020, 08/25/2020 Procedures Procedure Name Priority Date/Time Associated Diagnosis Comments SCREENING MAMMOGRAM W KELTON Routine 09/21/2014 11:10 AM TUBE WINDER from Last 3 Months or Most Recently Relevant to Health Maintenance Results * Screening Mammogram W Kel[place] (09/21/2014 11:10 AM TUBE WINDER) Anatomical Region Laterality Modality Breast N/A Mammography 09/21/2014 11:1 0 AM TUBE WINDER Narrative 09/21/2014 4:19 PM TUBE WINDER FLAQUITA JOSHUA M.D. FINAL REPORT ACC# Date Time Exam [id number] Sep 21, 2014 11:10:00 [facility] [place] [address] Diag Mammogram Bilateral Technologist(s): Naa Collins; ; [id number] Sep 21, 2014 11:10:00 [facility] [place] [id number] Bilateral Tomosynthesis Technologist(s): Naa Collins; ; EXAMINATION: [...] M.D. FINAL REPORT ACC# Date Time Exam [id number] Sep 21, 2014 11:10:00 [facility] [place] [address] Diag Mammogram Bilateral Technologist(s): Naa Collins; ; [id number] Sep 21, 2014 11:10:00 [facility] [place] [id number] Bilateral Tomosynthesis Technologist(s): Naa Collins; ; EXAMINATION: [...] Most Recently Relevant to Health Maintenance Insurance [facility] MEDICARE AD[facility]ANTAGE [facility] MEDICARE Address: [address] [phone] [facility] MEDICARE ADVANTAGE [facility] MEDICARE Address: [place] [phone] [facility] Care Teams Medical Staff Assistant Relationship Specialty Start Date End Date Jose Carlos Ha DO PCP - General Internal Medicine 02/16/23
[2025-09-08 11:06] LABS: Alanine Aminotransferase 20 U/L (6-35); Aspartate Amino Transferase 41 U/L (14-36)
== END 2025-09-08 09:20 | disposition home or self-care (01) ==
PROVIDERS: PCP Clinical Nurse Specialist; Visit Provider Podiatrist Foot & Ankle Surgery
DX: B35.1 Tinea unguium (principal)
CPT/HCPCS: 36415; 84450; 84460